=== PATIENT | female | born 1945 | race Caucasian/White ===

== ENCOUNTER 2017-08-10 18:35 | Inpatient (IN) | payer MEDICARE, BC ==
[2017-08-10] VITALS (8 sets, daily range): BP systolic 70–106; BP diastolic 42–54; PULSE 80–108; RESP 18–22; TEMP 97.6–100.8; O2SAT 94–100
[~2017-08-10] VITALS: Ht 167.6 cm; Wt 64.7 kg
[~2017-08-10 18:35] MED LIST: ALEN70 PO; ASPI81 PO; BIOT10004 PO; BUDE.25I IN; CILO100T PO; CITRTAB13 PO; CLON.5 PO; DOCU1CAP39 PO; FORACAP INH; GABA100C4 PO; HYDR12.56 PO; LORT7.5T3 PO; MEVA40TA6 PO; PRIN20TA2 PO; PROT40TA PO; SPIRCAP INH; VENTAER INH; VITA400C28 PO; XOPEAER4 INH
--- NOTE | 2017-08-10 19:14 | PD ---
HPI Chief Complaint: Pain: Acute or Chronic Time Seen by Provider: 18:59 Travel History International Travel<30 days: No Contact w/Intl Traveler<30days: No Traveled to known affect area: No History of Present Illness HPI 72-year-old female with history of fibromyalgia and COPD presents to the emergency department with "pain all over". Patient states that this pain occurred whenever she woke up on Sunday and she eventually saw her primary care physician today and he recommended he come to the emergency department. Patient states that "she feels like she is going to ". States her pain is located in her right hip but denies falls or trauma to the area. States in addition, she feels "dizzy" and described as vertigo and lightheadedness that occurs with standing and decreases with sitting. States that she was sick with a "virus" last week and felt "great" on Sunday but woke up Sunday feeling horrible. Patient states that she has also felt nauseous with 6 episodes of nonbloody vomiting. She denies fever but has had chills. Says that she does have a remote history of an CT and is followed Dr. johnson but does not member when her last stress test was. Overall, patient is a poor historian. PFSH Past Medical History Arthritis: Yes Asthma: No Autoimmune Disease: Yes (LUPUS/ inactive ) Blood Disorders: No Heart Rhythm Problems: No Cancer: No Cardiovascular Problems: Yes (CAD) High Cholesterol: Yes Chest Pain: No Congestive Heart Failure: No COPD: Yes Cerebrovascular Accident: No Coronary Artery Disease: Yes Diabetes: No Diverticulitis: Yes Endocrine: No GERD: Yes Glaucoma: No Genitourinary: No Hepatitis: Yes (HEP. A) Hiatal Hernia: Yes (GERD) Herniated Disk: Yes Hypertension: Yes Immune Disorder: Yes Kidney Stones: No Musculoskeletal: Yes Neurologic: No Psychiatric: No Reproductive: No Respiratory: Yes (EMPHYSEMA/COPD) Renal Failure: No Sickle Cell Disease: No Sleep Apnea: No Thyroid Disease: No Ulcer: No Tetanus Vaccination: Unknown Influenza Vaccination: No ?: Not Menopausal: Yes : 2 Para: 2 Past Surgical History Abdominal Surgery: Yes (COLON RESESCT. (DIVERTIC), HERNIA REP. gallbladder removed) Cardiac Surgery: No Cholecystectomy: Yes Ear Surgery: No Endocrine Surgery: No Eye Surgery: No Genitourinary Surgery: No Gynecologic Surgery: No Oral Surgery: Yes (teeth pulled and top dentures) Pacemaker: No Thoracic Surgery: No Other Surgery: Yes Social History Alcohol Use: No Tobacco Use: No (QUIT 10/2008) Substance Use: No Allergies-Medications (Allergen,Severity, Reaction): Coded Allergies: adhesive (Unverified Allergy, Intermediate, Itching, 02/20/17) cephalexin (Unverified Allergy, Mild, 02/20/17) Reported Meds & Prescriptions Reported Meds & Active Scripts Active Reported Probiotic (Saccharomyces Boulardii) Unknown Strength Cap 1 Cap PO DAILY Vitamin D-1000 (Cholecalciferol) 1,000 Unit Tab 1,000 Units PO BID Calcium 600 (Calcium Carbonate) 600 Mg Calcium (1500 Mg) Tab 600 Mg PO BID Biotin 5,000 Mcg Tab.rapdis 5,000 Mcg PO DAILY Aspirin Adult Low Strength (Aspirin) 81 Mg Tabdr 81 Mg PO DAILY Ventolin Hfa 18 GM Inh (Albuterol Sulfate) 90 Mcg/Act Aer 1 Puff INH Q4H PRN Spiriva Handihaler (Tiotropium Inh) 18 Mcg Cap 18 Mcg INH DAILY 1 capsule = 18 mcg Pantoprazole (Pantoprazole Sodium) 40 Mg Tab 40 Mg PO DAILY Lovastatin 40 Mg Tab 40 Mg PO DAILY Vashon (Hydrocodone-Acetaminophen) 5 Mg-325 Mg Tab 1 Tab PO Q8HR PRN Formoterol Fumarate Dihydrate 100 % Pow 12 Mcg INH Q12H Lexapro (Escitalopram Oxalate) 5 Mg Tab 5 Mg PO DAILY Klonopin (Clonazepam) 0.5 Mg Tab 0.5 Mg PO TID PRN Cilostazol 100 Mg Tab 100 Mg PO BID Tessalon Perles (Benzonatate) 100 Mg Cap 100 Mg PO TID PRN Review of Systems Except as stated in HPI: all other systems reviewed are Neg Physical Exam Narrative GENERAL: WD, WD in NAD upon intial assessment SKIN: Warm and dry. HEAD: Atraumatic. Normocephalic. EYES: Pupils equal and round. No scleral icterus. No injection or drainage. EOMI ENT: No nasal bleeding or discharge. Dry Mucous membranes, pink. no tonsillar hypertrophy or pharyngeal injection NECK: Trachea midline. No JVD. no lymphadenopathy CARDIOVASCULAR: Regular rate and rhythm. RESPIRATORY: No accessory muscle use. Clear to auscultation. Breath sounds equal bilaterally. GASTROINTESTINAL: Abdomen soft, nondistended. MUSCULOSKELETAL: Extremities without clubbing, cyanosis, or edema. No obvious deformities. TTP to right hip although says this is chronic, no deformities or evidence of trauma NEUROLOGICAL: Awake and alert. No obvious cranial nerve deficits. Motor grossly within normal limits. Five out of 5 muscle strength in the arms and legs. Normal speech. PSYCHIATRIC: Appropriate mood and affect; insight and judgment normal. Data Data Last Documented VS Vital Signs Date Time Temp Pulse Resp B/P (MAP) Pulse Ox O2 Delivery O2 Flow Rate FiO2 08/11/17 01:26 86 18 89/45 (60) 96 08/11/17 00:15 Room Air 08/10/17 22:00 100.8 08/10/17 20:46 2.00 Orders Orders Complete Blood Count With Diff (08/10/17 19:09) Comprehensive Metabolic Panel (08/10/17 19:09) Act Partial Throm Time (Ptt) (08/10/17 19:09) Prothrombin Time / Inr (Pt) (08/10/17 19:09) Magnesium (Mg) (08/10/17 19:09) Troponin I (08/10/17 19:09) Urinalysis - C+S If Indicated (08/10/17 19:09) Influenzae A/B Antigen (08/10/17 19:09) Blood Culture (08/10/17 19:09) Iv Access Insert/Monitor (08/10/17 19:09) Oximetry (08/10/17 19:09) Oxygen Administration (08/10/17 19:09) Chest, Single Ap (08/10/17 19:09) Albuterol-Ipratropium Neb (Duoneb Neb) (08/10/17 19:15) Sodium Chlorid 0.9% 500 Ml Inj (Ns 500 M (08/10/17 19:30) B-Type Natriuretic Peptide (08/10/17 19:17) Lactic Acid (08/10/17 19:41) Sodium Chlorid 0.9% 500 Ml Inj (Ns 500 M (08/10/17 21:15) Electrocardiogram (08/10/17 18:52) Acetaminophen (Tylenol) (08/10/17 21:30) Orthostatic Vital Signs (08/10/17 22:05) Sodium Chlorid 0.9% 500 Ml Inj (Ns 500 M (08/10/17 22:45) Sodium Chlor 0.9% 1000 Ml Inj (Ns 1000 M (08/10/17 23:00) Clonazepam (Klonopin) (08/10/17 23:30) Ketorolac Inj (Toradol Inj) (08/11/17 01:00) Sodium Chlor 0.9% 1000 Ml Inj (Ns 1000 M (08/11/17 01:00) Lactic Acid (08/11/17 01:41) Troponin I (08/11/17 01:42) Lipase (08/11/17 01:42) Admit Order (Ed Use Only) (08/11/17 02:28) Labs Laboratory Tests Test 08/10/17 19:17 08/10/17 19:54 08/10/17 20:31 08/11/17 02:01 White Blood Count 14.6 TH/MM3 Red Blood Count 4.65 MIL/MM3 Hemoglobin 13.7 GM/DL Hematocrit 41.0 % Mean Corpuscular Volume 88.3 FL Mean Corpuscular Hemoglobin 29.5 PG Mean Corpuscular Hemoglobin Concent 33.4 % Red Cell Distribution Width 14.0 % Platelet Count 381 TH/MM3 Mean Platelet Volume 8.1 FL Neutrophils (%) (Auto) 47.4 % Lymphocytes (%) (Auto) 35.5 % Monocytes (%) (Auto) 11.9 % Eosinophils (%) (Auto) 4.4 % Basophils (%) (Auto) 0.8 % Neutrophils # (Auto) 6.9 TH/MM3 Lymphocytes # (Auto) 5.2 TH/MM3 Monocytes # (Auto) 1.7 TH/MM3 Eosinophils # (Auto) 0.6 TH/MM3 Basophils # (Auto) 0.1 TH/MM3 CBC Comment AUTO DIFF Differential Total Cells Counted 100 Neutrophils % (Manual) 48 % Band Neutrophils % 1 % Lymphocytes % 34 % Monocytes % 11 % Eosinophils % 5 % Basophils % 1 % Neutrophils # (Manual) 7.2 TH/MM3 Differential Comment FINAL DIFF MANUAL Platelet Estimate NORMAL Platelet Morphology Comment NORMAL Red Cell Morphology Comment NORMAL Prothrombin Time 11.7 SEC Prothromb Time International Ratio 1.2 RATIO Activated Partial Thromboplast Time 28.9 SEC Blood Urea Nitrogen 22 MG/DL Creatinine 1.64 MG/DL Random Glucose 89 MG/DL Total Protein 7.9 GM/DL Albumin 3.7 GM/DL Calcium Level 9.8 MG/DL Magnesium Level 2.2 MG/DL Alkaline Phosphatase 128 U/L Aspartate Amino Transf (AST/SGOT) 56 U/L Alanine Aminotransferase (ALT/SGPT) 55 U/L Total Bilirubin 0.8 MG/DL Sodium Level 131 MEQ/L Potassium Level 4.0 MEQ/L Chloride Level 95 MEQ/L Carbon Dioxide Level 26.8 MEQ/L Anion Gap 9 MEQ/L Estimat Glomerular Filtration Rate 31 ML/MIN Troponin I LESS THAN 0.02 NG/ML 0.02 NG/ML B-Type Natriuretic Peptide 18 PG/ML Lactic Acid Level 2.6 mmol/L 1.3 mmol/L Urine Color YELLOW Urine Turbidity HAZY Urine pH 5.5 Urine Specific [place] 1.015 Urine Protein 30 mg/dL Urine Glucose (UA) NEG mg/dL Urine Ketones NEG mg/dL Urine Occult Blood NEG Urine Nitrite NEG Urine Bilirubin SMALL Urine Urobilinogen 2.0 MG/DL Urine Leukocyte Esterase NEG Urine RBC 2 /hpf Urine WBC 3 /hpf Urine Squamous Epithelial Cells 3 /hpf Urine Hyaline Casts 176 /lpf Urine Mucus MOD /lpf Microscopic Urinalysis Comment CATH-CULT NOT IND Lipase 63 U/L MDM Medical Decision Making Medical Screen Exam Complete: Yes Emergency Medical Condition: Yes Differential Diagnosis Sepsis, COPD exacerbation, fibromyalgia, malingering, influenza, viral syndrome Narrative Course 72-year-old female with history of fibromyalgia, RLS, and COPD presents to the emergency department with "pain all over". Patient states that this pain occurred whenever she woke up on Sunday and she eventually saw her primary care physician today and he recommended he come to the emergency department. Patient states that "she feels like she is going to ". States her pain is located in her right hip but denies falls or trauma to the area. States in addition, she feels "dizzy" and described as vertigo and lightheadedness that occurs with standing and decreases with sitting. States that she was sick with a "virus" last week and felt "great" on Sunday but woke up Sunday feeling horrible. Patient states that she has also felt nauseous with 6 episodes of nonbloody vomiting. She denies fever but has had chills. 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 Overall, patient is a poor historian. Surgical hx: h/o diverticulitis in 2004 which resulted in a colon resection. H/ o SBO in 2014. Initial vital signs hypotensive, HR 90s, temp 100.8 axillary Influenza negative. CXR report demonstrates left basilar scarring and/or atelectasis. Upon personal review of the chest x-ray there is concern for a left pleural effusion. Tylenol 325 ordered. Patient initially refused this medication and states that she would take this at home. NS IVF bolus 1L administered. Orthostatics positive. 80/44 sitting, 74/44 standing after 1L IVF bolus. states she has RLS and takes clonazepam daily for this. Administered 0.5mg clonazepam as a part of her usual evening medication as she feels slightly anxious and her restless leg syndrome symptoms. Labs reveal leukocytosis, elevated lactic acid, JACKY. Pt presents with symptoms of dehydration which may explain some of the lab values seen today. Recommend at least observation. Pt and are initially resistant to this idea. After further discussion, they did agree. Spoke with Dr. Hooker who is concerned about her blood pressure. She requests we discussed the case with Dr. Rosa. Please Dr. Sparks's note for dispo. Diagnosis Primary Impression: Leukocytosis Qualified Codes: D72.829 - Elevated white blood cell count, unspecified Additional Impressions: Hypotension Qualified Codes: I95.1 - Orthostatic hypotension Fever Condition: Stable Tabatha Suarez Aug 10, 2017 19:14
[2017-08-10] MEDS: RESP: ALBUTEROL 2.5 MG/IPRATROPIUM 0.5 MG NEB (SCH) INH ×2 (19:20→19:22)
[2017-08-10] MEDS ORDERED: SODIUM CHLORID 0.9% 500 ML INJ 500 ML IV ONE ×3 (19:30→22:45)
--- NOTE | 2017-08-10 19:34 | RADRPT ---
EXAM DATE/TIME: 08/10/2017 19:13 [facility] COMPARISON: CHEST SINGLE AP, August 03, 2014, 0:41. INDICATIONS : Chest and abdominal pain. MEDICAL HISTORY : Chronic obstructive pulmonary disease. SURGICAL HISTORY : None. ENCOUNTER: Initial ACUITY: 3 days PAIN SCORE: 10/10 LOCATION: Bilateral chest FINDINGS: Left basilar scarring and/or atelectasis is noted. The heart is stable. The pulmonary vascular patter n is normal. The right lung is clear. CONCLUSION: Left basilar scarring and/or atelectasis. No acute infiltrate or pulmonary vascular congestion Sunny Cummins MD on August 10, 2017 at 19:30 Board Certified Radiologist. This report was verified electronically.
[2017-08-10] MEDS ORDERED: CLON.5 PO (19:46)
[2017-08-10] MEDS ORDERED: VITA1000 PO (19:46)
[2017-08-10] MEDS ORDERED: LOVA40TA PO (19:46)
[2017-08-10] MEDS ORDERED: MOBI7.5T PO (19:46)
[2017-08-10] MEDS ORDERED: SPIRCAP INH (19:46)
[2017-08-10] MEDS ORDERED: PRED10 PO (19:46)
[2017-08-10] MEDS ORDERED: LEXA5TAB PO (19:46)
[2017-08-10] MEDS ORDERED: OSEL75 PO (19:46)
[2017-08-10] MEDS ORDERED: CALCTAB94 PO (19:46)
[2017-08-10] MEDS ORDERED: LISI-515 PO (19:46)
[2017-08-10] MEDS ORDERED: BENZ100 PO (19:46)
[2017-08-10] MEDS ORDERED: VENTAER INH (19:46)
[2017-08-10] MEDS ORDERED: FORM1POW2 INH (19:46)
[2017-08-10] MEDS ORDERED: NORC5TAB PO (19:46)
[2017-08-10] MEDS ORDERED: SACC1CAP3 PO (19:46)
[2017-08-10] MEDS ORDERED: ASPI81TA16 PO (19:46)
[2017-08-10] MEDS ORDERED: PANT40TA3 PO (19:46)
[2017-08-10] MEDS ORDERED: BIOT50006 PO (19:46)
[2017-08-10] MEDS ORDERED: CILO100T PO (19:46)
[2017-08-10 19:59] LABS: AUTOMATED NEUTROPHIL # 6.9 TH/MM3 (1.8-7.7); BASOPHIL # 0.1 TH/MM3 (0-0.2); BASOPHIL % 0.8 % (0.0-2.0); EOSINOPHIL # 0.6 TH/MM3 (0-0.4); EOSINOPHIL % 4.4 % (0.0-4.0); HEMOGLOBIN 13.7 GM/DL (11.6-15.3); LYMPH % 35.5 % (9.0-44.0); LYMPHOCYTE # 5.2 TH/MM3 (1.0-4.8); MEAN CELL VOLUME 88.3 FL (80.0-100.0); MEAN CORPUSCULAR HEMOGLOBIN 29.5 PG (27.0-34.0); MEAN CORPUSCULAR HGB CONC 33.4 % (32.0-36.0); MEAN PLATELET VOLUME 8.1 FL (7.0-11.0); MONO % 11.9 % (0.0-8.0); MONOCYTE # 1.7 TH/MM3 (0-0.9); NEUT % 47.4 % (16.0-70.0); PLATELET COUNT 381 TH/MM3 (150-450); RED BLOOD COUNT 4.65 MIL/MM3 (4.00-5.30); WHITE BLOOD COUNT 14.6 TH/MM3 (4.0-11.0)
[2017-08-10 20:09] LABS: ALBUMIN 3.7 GM/DL (3.4-5.0); AST (GOT) 56 U/L (15-37); BICARBONATE 26.8 MEQ/L (21.0-32.0); BLOOD UREA NITROGEN 22 MG/DL (7-18); CALCIUM 9.8 MG/DL (8.5-10.1); CHLORIDE 95 MEQ/L (98-107); CREATININE 1.64 MG/DL (0.50-1.00); GLOMERULAR FILTRATION RATE 31 ML/MIN (>89); GLUCOSE,RANDOM 89 MG/DL (74-106); MAGNESIUM 2.2 MG/DL (1.5-2.5); SODIUM (NA) 131 MEQ/L (136-145)
[2017-08-10 20:13] LABS: ALKALINE PHOSPHATASE 128 U/L (45-117); ALT (GPT) 55 U/L (10-53); INTERNATIONAL NORMALIZED RATIO 1.2 RATIO; PROTHROMBIN TIME - PATIENT 11.7 SEC (9.8-11.6); TOTAL BILIRUBIN ADULT 0.8 MG/DL (0.2-1.0); TOTAL PROTEIN 7.9 GM/DL (6.4-8.2); TROPONIN I LESS THAN 0.02 NG/ML (0.02-0.05)
[2017-08-10 20:50] LABS: BANDS 1 % (0-6); BASOPHILS 1 % (0-2); LYMPHOCYTES 34 % (9-44); MONOCYTES 11 % (0-8); NEUTROPHIL # MANUAL DIFF 7.2 TH/MM3 (1.8-7.7); POLYS (SEG NEUTROPHILS) 48 % (16-70)
[2017-08-10 21:08] LABS: BILIRUBIN, URINE SMALL (NEG); BLOOD, URINE NEG (NEG); GLUCOSE,URINE NEG (NEG); HYALINE CAST, URINE 176 /lpf (RARE); KETONE, URINE NEG (NEG); MUCUS URINE MOD /lpf (OCC); NITRITE,URINE NEG (NEG); PH, URINE 5.5 (5.0-8.5); SQUAMOUS EPITHELIAL CELL URINE 3 /hpf (0-5); URINE COLOR YELLOW (YELLW/STRAW); URINE LEUKOCYTE ESTERASE NEG (NEG)
[2017-08-10] MEDS ORDERED: ACETAMINOPHEN 325 MG TAB PO ONE (21:30)
[2017-08-10] MEDS ORDERED: SODIUM CHLOR 0.9% 1000 ML INJ 1,000 ML IV ONE (23:00)
[2017-08-10] MEDS ORDERED: clonazePAM 0.5 MG TAB PO ONE (23:30)
[2017-08-11] VITALS (15 sets, daily range): BP systolic 89–153; BP diastolic 42–75; PULSE 72–89; RESP 16–31; TEMP 98.2–98.7; O2SAT 75–100
[2017-08-11] MEDS ORDERED: KETOROLAC TROMETHAMINE 30 MG/ML (IVP) VIAL IV PUSH ONE (01:00)
[2017-08-11] MEDS ORDERED: SODIUM CHLOR 0.9% 1000 ML INJ 1,000 ML IV SCH (01:00)
[2017-08-11 02:38] LABS: TROPONIN I 0.02 NG/ML (0.02-0.05)
[2017-08-11] MEDS ORDERED: clonazePAM 0.5 MG TAB PO PRN (06:15)
[2017-08-11] MEDS ORDERED: CHLORHEXIDINE GLUCONATE 2 % 1 PACK (2 CLOTHS)(extra cloths) TOPICAL PRN ×2 (06:30→08:45)
[2017-08-11] MEDS ORDERED: RESP: ALBUTEROL 2.5 MG/3 ML NEB (PRN) INH (08:15)
[2017-08-11] MEDS ORDERED: BISACODYL 10 MG SUPP RECTAL PRN (08:15)
[2017-08-11] MEDS ORDERED: ONDANSETRON HCL 4 MG/2 ML VIAL IV PUSH PRN (08:15)
[2017-08-11] MEDS ORDERED: LACTULOSE SYRUP 20 GM/30 ML CUP PO PRN (08:15)
[2017-08-11] MEDS ORDERED: CHLORHEXIDINE GLUCONATE 2 % 1 PACK (2 CLOTHS) TOP PRN (08:15)
[2017-08-11] MEDS ORDERED: MISCELLANEOUS NURSING INFORMATION XX SCH (08:15)
[2017-08-11] MEDS ORDERED: SENNOSIDES 8.6 MG TAB PO PRN (08:15)
[2017-08-11] MEDS ORDERED: MAGNESIUM HYDROXIDE SUSP 30 ML CUP PO PRN (08:15)
[2017-08-11] MEDS ORDERED: SODIUM CHLORIDE 0.9% FLUSH 10 ML FLUSH IV FLUSH PRN (08:15)
[2017-08-11] MEDS: DOCUSATE SODIUM 50 MG/SENNA 8.6 MG TAB PO SCH ×2 (08:55→20:14)
[2017-08-11] MEDS: CHOLECALCIFEROL (VIT D3) 1000 UNIT TAB PO SCH ×2 (08:55→20:13)
[2017-08-11] MEDS: HEPARIN SODIUM - SQ 10,000 UNITS/ML VIAL SQ SCH ×2 (08:55→20:14)
[2017-08-11] MEDS: LACTOBACILLUS ACIDOPHILUS TAB PO SCH (08:55)
[2017-08-11] MEDS: PANTOPRAZOLE SODIUM 40 MG VIAL IV PUSH SCH (08:55)
[2017-08-11] MEDS: ASPIRIN EC 81 MG TABEC PO SCH ×2 (08:55→09:16)
[2017-08-11] MEDS: ESCITALOPRAM OXALATE 10 MG TAB PO SCH (08:56)
[2017-08-11] MEDS: SODIUM CHLORIDE 0.9% FLUSH 10 ML FLUSH IV FLUSH SCH ×2 (08:56→20:15)
[2017-08-11] MEDS: CALCIUM CARBONATE 1.25 GM (CA 500 MG) TAB PO SCH ×2 (08:56→20:13)
--- NOTE | 2017-08-11 09:10 | HHI.HP ---
HPI Service Critical Care Medicine Primary Care Physician Venice Mixon MD Admission Diagnosis hypotension resus resistant Diagnosis: Travel History International Travel<30 Days: No Contact w/Intl Traveler <30 Da: No Traveled to Known Affected Are: No History of Present Illness 72-year-old female with past medical history of COPD, coronary artery disease, GERD, hypertension, hyperlipidemia presents to [facility] emergency department with 6 day history of nausea, vomiting, decreased appetite and myalgia. She states that she saw her primary physician a couple of weeks ago and was having cough and COPD exacerbation so was started on ciprofloxacin and prednisone. She states she took these about a week and then followed up with Dr. Khan and was started on Tamiflu for presumed influenza (she states was not tested for influenza). She states she took a couple of doses of tamiflu and then did not take the rest because since 08/06/17 she has been nauseated. She states she had several episodes of nonbloody emesis. Subsequently she has had poor appetite has been having dry heaves, but states " I am like this often because of my GERD anyway". She denies abdominal pain. States she had a normal BM yesterday. Denies sore throat, headache, hemoptysis , chest pain, flank pain, dysuria, rash, fever (temp 100.8 in ED). She does have rhinorrhea and is repeatedly sniffing in the ED. She was treated for hypotension in the ED with BP 70/42 MAP 51. Heart rate was 97-108. Lactic acid was 2.6. She was given 1 L NS bolus and tachycardia resolved. She had orthostatic vital signs so she was given additional 1.5 L NS bolus. She was noted to have ill-fitting BP cuff so this was changed and she subsequently has been consistently normotensive with SBP 101/59 - SBP 113. She has voided and lactic acid normalize to 1.3. CXR is clear, u/a normal, WBC 14.6 with monocyte predominance. She is not chronically on prednisone, states last prednisone dose was 1 week ago and she had only been taking prednisone about a week. Influenza in the ED pending. Blood cultures pending. Review of Systems Constitutional: COMPLAINS OF: Dizziness Eyes: DENIES: Vision loss Gastrointestinal: COMPLAINS OF: Nausea, Vomiting, Anorexia Genitourinary: DENIES: Urinary frequency, Urgency Integumentary: DENIES: Rash Hematologic/lymphatic: DENIES: Lymphadenopathy Immunologic/allergic: DENIES: Urticaria Neurologic: DENIES: Headache Past Family Social History Allergies: Coded Allergies: adhesive (Unverified Allergy, Intermediate, Itching, 02/20/17) cephalexin (Unverified Allergy, Mild, 02/20/17) Past Medical History COPD, followed by Dr. Khan Fibromyalgia "Inactive systemic lupus erythematosus" . She has seen Dr. Vargas with rheumatology in the past coronary artery disease with no prior stents. Previously underwent catheter by Dr. Perez in 1994. Now followed by Dr. Ortega. 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 svitlana de guzman) cardiac catheterization in 1994. No stents Reported Medications Tamiflu 75 mill grams by mouth twice a day Spiriva 18 g inhaled daily Albuterol 1 puff inhaled every 4 hours Formoterol 12 g inhaled every 12 hours Cilostazol 100 g by mouth twice a day Lovastatin 40 mill grams by mouth daily Lisinopril 20 mill grams by mouth daily Aspirin 81 mg by mouth daily Mobic 7.5 mill grams by mouth daily Lenore 5 mg by mouth every 8 hours as needed for pain Klonopin 0.5 mill grams by mouth 3 times a day as needed for anxiety Lexapro 5 mill grams by mouth daily Calcium carbonate 600 mg by mouth twice a day Tessalon Perles 100 mg by mouth 3 times a day as needed for cough Protonix 40 mill grams by mouth daily Saccharomyces probiotic 1 By mouth daily Prednisone 10 mg by mouth daily(Hasn't taken in a week) Biotin 5000 g by mouth daily Vitamin D 1000 units by mouth twice a day Family History Mother had colon cancer and of complications of surgery at 72 Father had a stroke and two and a half years later at age 78 Social History Smoked 2 packs of cigarettes per day for over 45 years. Quit smoking in 2008 and lives at home with her . No alcohol or illicit drug use Physical Exam Vital Signs Vital Signs Date Time Temp Pulse Resp B/P (MAP) Pulse Ox O2 Delivery O2 Flow Rate FiO2 08/11/17 07:18 75 08/11/17 05:55 75 18 118/54 (75) 100 Room Air 08/11/17 03:11 82 99/51 (67) 101/49 (66) 08/11/17 03:03 83 18 89/42 (58) 100 Room Air 08/11/17 01:26 86 18 89/45 (60) 96 08/11/17 00:15 86 18 89/46 (60) 100 Room Air 08/10/17 23:35 89 18 97/51 (66) 100 08/10/17 23:12 80 18 99/49 (66) 100 08/10/17 22:32 104 18 80/44 (56) 106 18 74/44 (54) 08/10/17 22:00 100.8 103 18 94/53 (67) 96 Room Air 84/43 (57) 08/10/17 20:47 108 106/54 (71) 08/10/17 20:46 Nasal Cannula 2.00 08/10/17 19:24 100 Nasal Cannula 2.00 08/10/17 18:56 08/10/17 18:56 102 19 92/49 (63) 100 Room Air 08/10/17 18:36 97.6 97 22 70/42 (51) 94 Room Air Physical Exam GENERAL: Elderly female who is alert and interactive laying in ED bed. She has obvious rhinorrhea SKIN: Warm and dry, no rash HEAD: Atraumatic. Normocephalic. EYES: Pupils equal and round, 2 mm reactive bilaterally. No scleral icterus. Very mild conjunctival injection bilaterally ENT: Mucous membranes pink and moist. No pharyngeal erythema. NECK: Trachea midline. No JVD. No meningismus CARDIOVASCULAR: Regular rate and rhythm. No murmurs rubs or gallops. RESPIRATORY: She is breathing very comfortably without accessory muscle use. There are no wheezes Rales or rhonchi. GASTROINTESTINAL: Abdomen soft, nondistended. Completely nontender. No rebound or guarding. No HSM or masses. No costovertebral angle tenderness. MUSCULOSKELETAL: Extremities without clubbing, cyanosis, or edema. No obvious deformities. NEUROLOGICAL: Awake and alert. No obvious cranial nerve deficits. No nystagmus Motor grossly within normal limits. Normal speech. Laboratory Laboratory Tests Test 08/10/17 19:17 08/10/17 19:54 08/10/17 20:31 08/11/17 02:01 White Blood Count 14.6 Red Blood Count 4.65 Hemoglobin 13.7 Hematocrit 41.0 Mean Corpuscular Volume 88.3 Mean Corpuscular Hemoglobin 29.5 Mean Corpuscular Hemoglobin Concent 33.4 Red Cell Distribution Width 14.0 Platelet Count 381 Mean Platelet Volume 8.1 Neutrophils (%) (Auto) 47.4 Lymphocytes (%) (Auto) 35.5 Monocytes (%) (Auto) 11.9 Eosinophils (%) (Auto) 4.4 Basophils (%) (Auto) 0.8 Neutrophils # (Auto) 6.9 Lymphocytes # (Auto) 5.2 Monocytes # (Auto) 1.7 Eosinophils # (Auto) 0.6 Basophils # (Auto) 0.1 CBC Comment AUTO DIFF Differential Total Cells Counted 100 Neutrophils % (Manual) 48 Band Neutrophils % 1 Lymphocytes % 34 Monocytes % 11 Eosinophils % 5 Basophils % 1 Neutrophils # (Manual) 7.2 Differential Comment FINAL DIFF MANUAL Platelet Estimate NORMAL Platelet Morphology Comment NORMAL Red Cell Morphology Comment NORMAL Prothrombin Time 11.7 Prothromb Time International Ratio 1.2 Activated Partial Thromboplast Time 28.9 Blood Urea Nitrogen 22 Creatinine 1.64 Random Glucose 89 Total Protein 7.9 Albumin 3.7 Calcium Level 9.8 Magnesium Level 2.2 Alkaline Phosphatase 128 Aspartate Amino Transf (AST/SGOT) 56 Alanine Aminotransferase (ALT/SGPT) 55 Total Bilirubin 0.8 Sodium Level 131 Potassium Level 4.0 Chloride Level 95 Carbon Dioxide Level 26.8 Anion Gap 9 Estimat Glomerular Filtration Rate 31 Troponin I LESS THAN 0.02 0.02 B-Type Natriuretic Peptide 18 Lactic Acid Level 2.6 1.3 Urine Color YELLOW Urine Turbidity HAZY Urine pH 5.5 Urine Specific Virgil 1.015 Urine Protein 30 Urine Glucose (UA) NEG Urine Ketones NEG Urine Occult Blood NEG Urine Nitrite NEG Urine Bilirubin SMALL Urine Urobilinogen 2.0 Urine Leukocyte Esterase NEG Urine RBC 2 Urine WBC 3 Urine Squamous Epithelial Cells 3 Urine Hyaline Casts 176 Urine Mucus MOD Microscopic Urinalysis Comment CATH-CULT NOT IND Lipase 63 Test 08/11/17 06:10 Date/Time Source Procedure Growth Status 08/10/17 19:10 Blood Peripheral Aerobic Blood Culture Pending Received 08/10/17 19:10 Blood Peripheral Anaerobic Blood Culture Pending Received 08/10/17 19:17 Nasal Aspirate Influenza Types A,B Antigen (JUAN) - Final NEGATIVE FOR FLU A AND B ANTIGEN.... Complete Result Diagram: 2/2/18 1917 2/2/18 1917 Septic Shock Reassessment Septic shock perfusion: reassessment completed Caprini VTE Risk Assessment Caprini VTE Risk Assessment: Mod/High Risk (score >= 2) Caprini Risk Assessment Model Point Value = 1 Point Value = 2 Point Value = 3 Point Value = 5 Age 41-60 Minor surgery BMI > 25 kg/m2 Swollen legs Varicose veins or History of unexplained or recurrent spontaneous Oral contraceptives or hormone replacement Sepsis (< 1 month) Serious lung disease, including pneumonia (< 1 month) Abnormal pulmonary function Acute myocardial infarction Congestive heart failure (< 1 month) History of inflammatory bowel disease Medical patient at bed rest Age 61-74 Arthroscopic surgery Major open surgery (> 45 min) Laparoscopic surgery (> 45 min) Malignancy Confined to bed (> 72 hours) Immobilizing plaster cast Central venous access Age >= 75 History of VTE Family history of VTE Factor V Leiden Prothrombin [id number] Lupus anticoagulant Anticardiolipin antibodies Elevated serum homocysteine Heparin-induced thrombocytopenia Other congenital or acquired thrombophilia Stroke (< 1 month) Elective arthroplasty Hip, pelvis, or leg fracture Acute spinal cord injury (< 1 month) Prophylaxis Regimen Total Risk Factor Score Risk Level Prophylaxis Regimen 0-1 Low Early ambulation 2 Moderate Order ONE of the following: *Sequential Compression Device (SCD) *Heparin 5000 units SQ BID 3-4 Higher Order ONE of the following medications: *Heparin 5000 units SQ TID *Enoxaparin/Lovenox 40 mg SQ daily (WT < 150 kg, CrCl > 30 mL/min) *Enoxaparin/Lovenox 30 mg SQ daily (WT < 150 kg, CrCl > 10-29 mL/min) *Enoxaparin/Lovenox 30 mg SQ BID (WT < 150 kg, CrCl > 30 mL/min) AND/OR *Sequential Compression Device (SCD) 5 or more Highest Order ONE of the following medications: *Heparin 5000 units SQ TID (Preferred with Epidurals) *Enoxaparin/Lovenox 40 mg SQ daily (WT < 150 kg, CrCl > 30 mL/min) *Enoxaparin/Lovenox 30 mg SQ daily (WT < 150 kg, CrCl > 10-29 mL/min) *Enoxaparin/Lovenox 30 mg SQ BID (WT < 150 kg, CrCl > 30 mL/min) AND *Sequential Compression Device (SCD) Assessment and Plan Assessment and Plan NEURO: Depression Anxiety Klonopin 0.5 mill grams by mouth 3 times a day hold for hypotension Lexapro 5 mg by mouth daily RESP: COPD Prior history of tobacco abuse URI DuoNeb every 6 hours. Albuterol every 2 hours as needed. Chest x-ray / - no infiltrate. CV: Hypotension, appears secondary to volume depletion, resolved Patient has had poor by mouth intake 1 week and has had volume loss from vomiting. Has received 2.5 L normal saline bolus in the emergency department. Continue 0.9 NaCl at 84 mill liters per hour. Lactic acidosis resolved Serial troponins negative. GI: Elevated LFTs Prior history of cholecystectomy Prior ventral hernia repair Zofran as needed for nausea. Abdomen is completely benign. LFTs are mildly elevated which may be secondary to viral process. We'll follow up right upper quadrant ultrasound. Follow-up viral hepatitis panel. Clear liquid diet FEN/RENAL: Hyponatremic dehydration Acute kidney injury overlying CKD stage II Patient is voiding. Monitor intake and output. Monitor electrolytes and replace as indicated. Follow-up CMP ID: Symptoms appear consistent upper respiratory infection, likely viral. She has rhinorrhea, myalgias. Influenza negative and given duration of her symptoms, doubt Tamiflu would be of benefit at this point ( states she took a couple of doses almost a week ago). She has leukocytosis with monocyte predominance. No compelling evidence for bacterial infection with negative UA, benign abdomen, negative chest x-ray, no diarrhea. Will f/u CXR to evaluate for development of infiltrate following hydration. At this point, monitoring off antibiotics. HEME Eosinophilia Monitor CBC ENDO: Euglycemic PROPH: SCDs/Heparin 5000 units subcutaneous every 12 hours for DVT prophylaxis. ACCESS: Peripheral IV providing adequate access at this time Patients BP is stable. Will transfer to floor. Will initiate clear liquid diet and assess tolerance. Consult hospitalist to assume care Level 2 H and P Ayesha Rosa MD Aug 11, 2017 09:10
--- NOTE | 2017-08-11 09:25 | RADRPT ---
EXAM DATE/TIME: 08/11/2017 09:00 [facility] COMPARISON: CHEST SINGLE AP, August 10, 2017, 19:13. INDICATIONS : Shortness of breath MEDICAL HISTORY : Chronic obstructive pulmonary disease. SURGICAL HISTORY : None. ENCOUNTER: Subsequent ACUITY: 4 - 6 days PAIN SCORE: 0/10 LOCATION: Bilateral chest FINDINGS: A single view of the chest demonstrates minimal left basilar density without evidence of mass, infilt rate or effusion. Heart normal in size. The cardiomediastinal contours are unremarkable. Osseous st ructures are intact. CONCLUSION: 1. Stable left basilar density likely scarring. Alfredito Carbajal MD on August 11, 2017 at 9:20 Board Certified Radiologist. This report was verified electronically.
[2017-08-11 09:36] LABS: TROPONIN I 0.02 NG/ML (0.02-0.05)
--- NOTE | 2017-08-11 09:38 | RADRPT ---
EXAM DATE/TIME: 08/11/2017 08:28 [facility] COMPARISON: No previous studies available for comparison. INDICATIONS : Nausea/vomiting. MEDICAL HISTORY : Hypercholesterolemia. Emphysema. Diverticulitis. Coronary artery disease. HTN. COPD. Dyspnea. GERD. H iatal hernia. Arthritis. Herniated disc. LUPUS. Hep A. SURGICAL HISTORY : Cholecystectomy. Colon resection. Teeth pulled. Hernia repair. ENCOUNTER: Initial ACUITY: 2 days PAIN SCORE: 0/10 LOCATION: Bilateral upper quadrant MEASUREMENTS: LIVER: 14.6 cm length COMMON DUCT: 8 mm RIGHT KIDNEY: 103 x 4.3 x 3.8 cm SPLEEN: 7.6 cm length FINDINGS: LIVER: Normal echotexture without focal lesion or ductal dilatation. Hepatopedal flow. COMMON DUCT: No intraluminal mass or stone visualized. GALLBLADDER: Surgically absent. PANCREAS: The visualized portions are within normal limits. RIGHT KIDNEY: No hydronephrosis, stone or mass. SPLEEN: No focal lesion. CONCLUSION: 1. Status post cholecystectomy. 2. No acute abnormalities. Alfredito Carbajal MD on August 11, 2017 at 9:34 Board Certified Radiologist. This report was verified electronically.
[2017-08-11] MEDS: RESP: ALBUTEROL 2.5 MG/IPRATROPIUM 0.5 MG NEB (SCH) INH ×2 (09:54→15:01)
[2017-08-11 11:31] LABS: ALBUMIN 3.2 GM/DL (3.4-5.0); ALKALINE PHOSPHATASE 102 U/L (45-117); ALT (GPT) 40 U/L (10-53); AST (GOT) 54 U/L (15-37); BLOOD UREA NITROGEN 21 MG/DL (7-18); CALCIUM 8.3 MG/DL (8.5-10.1); CHLORIDE 104 MEQ/L (98-107); CREATININE 1.37 MG/DL (0.50-1.00); GLOMERULAR FILTRATION RATE 38 ML/MIN (>89); GLUCOSE,RANDOM 80 MG/DL (74-106); SODIUM (NA) 136 MEQ/L (136-145); TOTAL BILIRUBIN ADULT 0.8 MG/DL (0.2-1.0); TOTAL PROTEIN 6.8 GM/DL (6.4-8.2)
[2017-08-11] MEDS: ACETAMINOPHEN 325 MG TAB PO PRN (13:13)
--- NOTE | 2017-08-11 13:14 | EKG ---
Date Performed: 08/10/2017 Time Performed: 18:52:22 PTAGE: 72 years EKG: ECTOPIC ATRIAL RHYTHM LOW QRS VOLTAGE IN EXTREMITY LEADS PATTERN CONSISTENT WITH PULMONARY DISEASE Since previous tracing, no significant change noted ABNORMAL ECG PREVIOUS TRACING : 08/03/2014 01.27 DOCTOR: Aleks Perez Interpretating Date/Time 08/11/2017 13:12:46
[2017-08-11] MEDS ORDERED: traMADol HCL 50 MG TAB PO PRN (13:45)
[2017-08-11] MEDS: SODIUM CHLOR 0.9% 1000 ML INJ 1,000 ML IV SCH ×2 (15:59→20:16)
[2017-08-11 20:45] LABS: HEMATOCRIT 32.9 % (35.0-46.0); HEMOGLOBIN 11.1 GM/DL (11.6-15.3); MEAN CELL VOLUME 88.4 FL (80.0-100.0); MEAN CORPUSCULAR HEMOGLOBIN 29.8 PG (27.0-34.0); MEAN CORPUSCULAR HGB CONC 33.7 % (32.0-36.0); MEAN PLATELET VOLUME 7.2 FL (7.0-11.0); PLATELET COUNT 238 TH/MM3 (150-450); RED BLOOD COUNT 3.73 MIL/MM3 (4.00-5.30); RED CELL DISTRIBUTION WIDTH 13.3 % (11.6-17.2); WHITE BLOOD COUNT 7.4 TH/MM3 (4.0-11.0)
[2017-08-11 21:38] LABS: CREATININE, RANDOM URINE 40.8 MG/DL
[2017-08-12] VITALS: BP 146/63; PULSE 86; RESP 16; TEMP 98.6; O2SAT 98
[2017-08-12] MEDS ORDERED: CHLORHEXIDINE GLUCONATE 2 % 1 PACK (2 CLOTHS) TOP SCH (04:00)
[2017-08-12] MEDS ORDERED: CHLORHEXIDINE GLUCONATE 2 % 1 PACK (2 CLOTHS)(taper/protocol) TOPICAL SCH (04:00)
[2017-08-12] MEDS: RESP: ALBUTEROL 2.5 MG/IPRATROPIUM 0.5 MG NEB (SCH) INH (04:00)
[2017-08-12 08:00] VITALS: BP 137/65; PULSE 89; RESP 20; TEMP 99.4; O2SAT 90
[2017-08-12] MEDS: PANTOPRAZOLE SODIUM 40 MG VIAL IV PUSH SCH (08:00)
[2017-08-12] MEDS: SODIUM CHLOR 0.9% 1000 ML INJ 1,000 ML IV SCH (08:03)
[2017-08-12] MEDS: SODIUM CHLORIDE 0.9% FLUSH 10 ML FLUSH IV FLUSH SCH (09:00)
[2017-08-12] MEDS: DOCUSATE SODIUM 50 MG/SENNA 8.6 MG TAB PO SCH (09:00)
[2017-08-12] MEDS: HEPARIN SODIUM - SQ 10,000 UNITS/ML VIAL SQ SCH (09:24)
[2017-08-12] MEDS: CALCIUM CARBONATE 1.25 GM (CA 500 MG) TAB PO SCH (09:24)
[2017-08-12] MEDS: LACTOBACILLUS ACIDOPHILUS TAB PO SCH (09:24)
[2017-08-12] MEDS: CHOLECALCIFEROL (VIT D3) 1000 UNIT TAB PO SCH (09:24)
[2017-08-12] MEDS: ASPIRIN EC 81 MG TABEC PO SCH (09:24)
[2017-08-12] MEDS: ESCITALOPRAM OXALATE 10 MG TAB PO SCH (09:24)
--- NOTE | 2017-08-12 10:04 | HHI.DCPOC ---
Discharge Care Plan Diagnosis: (1) JACKY (acute kidney injury) (2) Hypotension (3) URI (upper respiratory infection) (4) Anxiety (5) Lactic acidemia Goals to Promote Your Health * To prevent worsening of your condition and complications * To maintain your health at the optimal level Directions to Meet Your Goals HOLD LISINOPRIL until you see your PCP. Take your medications as prescribed Follow your dietary instruction Follow activity as directed Keep your appointments as scheduled Take your immunizations and boosters as scheduled If your symptoms worsen call your PCP, if no PCP go to Urgent Care Center or Emergency Room Smoking is Dangerous to Your Health. Avoid second hand smoke Call the 24-hour hour crisis hotline for domestic abuse at Jamaal Bills MD Aug 12, 2017 10:04
--- NOTE | 2017-08-12 10:05 | HHI.PR ---
Subjective Remarks Patient reports she is feeling much better. She wants to go home. Would like to eat. She denies anymore nausea or vomiting. Objective Vitals Vital Signs Date Time Temp Pulse Resp B/P (MAP) Pulse Ox O2 Delivery O2 Flow Rate FiO2 08/12/17 08:00 99.4 89 20 137/65 (89) 90 08/12/17 00:00 98.6 86 16 146/63 (90) 98 08/11/17 20:00 98.7 89 16 153/75 (101) 97 08/11/17 16:00 98.2 88 17 134/56 (82) 92 08/11/17 14:00 83 31 08/11/17 14:00 81 08/11/17 13:00 82 19 105/69 (81) 98 08/11/17 12:00 98.7 74 18 108/55 (72) 97 08/11/17 12:00 78 20 142/62 (88) 75 08/11/17 12:00 81 08/11/17 11:00 81 25 129/60 (83) 100 I/O 08/11/17 08/11/17 08/11/17 08/12/17 08/12/17 08/12/17 07:00 15:00 23:00 07:00 15:00 23:00 Intake Total 2500 ml 280 ml 1600 ml 480 ml Output Total 525 ml 200 ml 400 ml Balance 2500 ml -245 ml 1400 ml 80 ml Intake Oral 280 ml 600 ml 480 ml IV Total 2500 ml 1000 ml Output Urine Total 525 ml 200 ml 400 ml # Voids 2 # Bowel Movements 3 1 0 Result Diagram: 08/11/17202708/11/17814 Objective Remarks GENERAL: Elderly female, in no apparent distress. CARDIOVASCULAR: Normal rate and regular rhythm without murmurs, gallops, or rubs. RESPIRATORY: Good respiratory efforts. Breath sounds equal and clear to auscultation bilaterally. GASTROINTESTINAL: Abdomen soft, non-tender, non-distended. Normal active bowel sounds MUSCULOSKELETAL: Extremities without cyanosis, or edema. NEURO: Alert & Oriented x4 to person, place, time, situation. Moves all ext x4 PSYCH: Appropriate mood and affect. A/P Assessment and Plan 72 year-old female presented to the emergency room with complaint of nausea, vomiting, generalized body ache. Patient was found to be hypotensive on presentation. Lactic acid elevated. She was admitted and resuscitated with IV fluid. Blood pressure stabilized. The patient quickly improved and was able to tolerate her diet. It appears that URI led to her symptoms and hospitalization due to dehydration. Patient also presented with acute on chronic kidney injury. This improved with IV fluid. Expect continuing improvement. Based on blood pressure trends, she was advised to stop taking lisinopril for now and follow-up with her primary care physician to titrate antihypertensives as needed. Discharge home in good condition Diet: Heart healthy Activity: Regular as tolerated Meds: Per med rec Follow-up with: PCP Jamaal Bills MD Aug 12, 2017 10:05
[2017-08-12] MEDS: ACETAMINOPHEN 325 MG TAB PO PRN (11:40)
[2017-08-12 12:00] VITALS: BP 146/67; PULSE 89; RESP 18; TEMP 98.9; O2SAT 93
[2017-08-13 16:07] LABS: HEPATITIS A AB IGM NEGATIVE (NEGATIVE); HEPATITIS B CORE AB IGM NEGATIVE (NEGATIVE); HEPATITIS B SURFACE ANTIGEN NEGATIVE (NEGATIVE); HEPATITIS C AB IgG NEGATIVE (NEGATIVE)
== END 2017-08-12 15:13 | disposition home or self-care (01) | DRG 683 ==
LOC: NEPC 18:35 → NEDA 08-11 02:30 → HIMW 08-11 06:05 → N07B 08-11 15:45
PROVIDERS: ADMIT Family Medicine; ATTEND Family Medicine
DX: N17.9 Acute kidney failure, unspecified (principal); E87.2 Acidosis; J44.9 Chronic obstructive pulmonary disease, unspecified; D72.1 Eosinophilia; E87.1 Hypo-osmolality and hyponatremia; J06.9 Acute upper respiratory infection, unspecified; E86.0 Dehydration; I95.1 Orthostatic hypotension; M79.7 Fibromyalgia; I25.10 Atherosclerotic heart disease of native coronary artery without angina pectoris; I25.2 Old myocardial infarction; K21.9 Gastro-esophageal reflux disease without esophagitis; N18.2 Chronic kidney disease, stage 2 (mild); I12.9 Hypertensive chronic kidney disease with stage 1 through stage 4 chronic kidney disease, or unspecified chronic kidney disease; G25.81 Restless legs syndrome; E78.5 Hyperlipidemia, unspecified; M51.26 Other intervertebral disc displacement, lumbar region; M19.90 Unspecified osteoarthritis, unspecified site; F32.9 Major depressive disorder, single episode, unspecified; F41.9 Anxiety disorder, unspecified; Z87.891 Personal history of nicotine dependence; Z88.1 Allergy status to other antibiotic agents
CPT/HCPCS: 71045; 76705; 80053; 80074; 81001; 82533; 82550; 82552; 82570; 83605; 83690; 83735; 83880; 84300; 84484; 85007; 85027; 85610; 85730; 87040; 87205; 87641; 87804; 93005; 94640; 94664; 96361; 96374; C9113; J1644; J1885; J7030; J7040

== ENCOUNTER 2017-08-18 15:51 | Inpatient (IN) | payer MEDICARE, BC ==
[~2017-08-18] VITALS: Ht 165.1 cm; Wt 66.0 kg
[~2017-08-18 15:51] MED LIST changes: -ALEN70 PO; -ASPI81 PO; +ASPI81TA16 PO; +BENZ100 PO; -BIOT10004 PO; +BIOT50006 PO; -BUDE.25I IN; +CALCTAB94 PO; -CITRTAB13 PO; -DOCU1CAP39 PO; -FORACAP INH; +FORM1POW2 INH; -GABA100C4 PO; -HYDR12.56 PO; +LEXA5TAB PO; -LORT7.5T3 PO; +LOVA40TA PO; -MEVA40TA6 PO; +NORC5TAB PO; +PANT40TA3 PO; -PRIN20TA2 PO; -PROT40TA PO; +SACC1CAP3 PO; +VITA1000 PO; -VITA400C28 PO; -XOPEAER4 INH
[2017-08-18 16:00] VITALS: BP 149/64; PULSE 83; RESP 15; O2SAT 94
[2017-08-18] MEDS ORDERED: SODIUM CHLOR 0.9% 1000 ML INJ 1,000 ML IV SCH (16:09)
[2017-08-18 16:15] VITALS: O2SAT 98
[2017-08-18] MEDS ORDERED: SODIUM CHLORIDE 0.9% FLUSH 10 ML FLUSH IV FLUSH PRN ×3 (16:15→19:30)
[2017-08-18 16:42] LABS: BACTERIA, URINE OCC /hpf; BILIRUBIN, URINE NEG (NEG); BLOOD, URINE NEG (NEG); GLUCOSE,URINE NEG (NEG); HYALINE CAST, URINE 10 /lpf (RARE); KETONE, URINE 40 mg/dL (NEG); MUCUS URINE FEW /lpf (OCC); NITRITE,URINE NEG (NEG); SQUAMOUS EPITHELIAL CELL URINE <1 /hpf (0-5); URINE COLOR YELLOW (YELLW/STRAW); URINE LEUKOCYTE ESTERASE NEG (NEG)
[2017-08-18 16:46] LABS: AUTOMATED NEUTROPHIL # 3.7 TH/MM3 (1.8-7.7); BASOPHIL # 0.1 TH/MM3 (0-0.2); BASOPHIL % 0.7 % (0.0-2.0); EOSINOPHIL # 0.5 TH/MM3 (0-0.4); HEMATOCRIT 37.5 % (35.0-46.0); HEMOGLOBIN 12.9 GM/DL (11.6-15.3); LYMPH % 34.2 % (9.0-44.0); LYMPHOCYTE # 2.6 TH/MM3 (1.0-4.8); MEAN CELL VOLUME 87.9 FL (80.0-100.0); MEAN CORPUSCULAR HEMOGLOBIN 30.2 PG (27.0-34.0); MEAN CORPUSCULAR HGB CONC 34.4 % (32.0-36.0); MEAN PLATELET VOLUME 7.7 FL (7.0-11.0); MONO % 11.4 % (0.0-8.0); MONOCYTE # 0.9 TH/MM3 (0-0.9); NEUT % 47.7 % (16.0-70.0); PLATELET COUNT 277 TH/MM3 (150-450); RED BLOOD COUNT 4.27 MIL/MM3 (4.00-5.30); RED CELL DISTRIBUTION WIDTH 13.1 % (11.6-17.2); WHITE BLOOD COUNT 7.7 TH/MM3 (4.0-11.0)
[2017-08-18 16:47] LABS: INTERNATIONAL NORMALIZED RATIO 1.2 RATIO; PROTHROMBIN TIME - PATIENT 11.9 SEC (9.8-11.6)
--- NOTE | 2017-08-18 16:47 | PD ---
HPI Chief Complaint: Altered Mental Status Time Seen by Provider: 16:09 Travel History International Travel<30 days: No Contact w/Intl Traveler<30days: No Traveled to known affect area: No History of Present Illness HPI 72-year-old woman, multiple medical problems, presents to the emergency department brought by EMS after her called because she has been weak, not eating, not drinking. She was discharged home from the hospital about 6 days ago after being admitted with pain all over and hypotension. states that she really has not been right since she got home. She has been confused, has difficulty word finding, and has ongoing pain in her left hip. She does have a prescription for hydrocodone but says she is only taking it once or twice since she has been home 6 days ago. No other significant medication changes. No other complaints. History Past Medical History Narrative Medical COPD, followed by Dr. Khan Fibromyalgia "Inactive systemic lupus erythematosus" . She has seen Dr. Vargas with rheumatology in the past coronary artery disease with no prior stents. Previously underwent catheter by Dr. Perez in 1994. Now followed by Dr. Ortega. 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 Lumbar herniated disc Arthritis Cataracts Tobacco abuse Tetanus Vaccination: Unknown Influenza Vaccination: Yes Menopausal: Yes : 2 Para: 2 Social History Alcohol Use: No Tobacco Use: No Allergies-Medications (Allergen,Severity, Reaction): Coded Allergies: adhesive (Unverified Allergy, Intermediate, Itching, 08/18/17) cephalexin (Unverified Allergy, Mild, 08/18/17) Reported Meds & Prescriptions Reported Meds & Active Scripts Active Reported Probiotic (Saccharomyces Boulardii) Unknown Strength Cap 1 Cap PO DAILY Vitamin D-1000 (Cholecalciferol) 1,000 Unit Tab 1,000 Units PO BID Calcium 600 (Calcium Carbonate) 600 Mg Calcium (1500 Mg) Tab 600 Mg PO BID Biotin 5,000 Mcg Tab.rapdis 5,000 Mcg PO DAILY Aspirin Adult Low Strength (Aspirin) 81 Mg Tabdr 81 Mg PO DAILY Ventolin Hfa 18 GM Inh (Albuterol Sulfate) 90 Mcg/Act Aer 1 Puff INH Q4H PRN Spiriva Handihaler (Tiotropium Inh) 18 Mcg Cap 18 Mcg INH DAILY 1 capsule = 18 mcg Pantoprazole (Pantoprazole Sodium) 40 Mg Tab 40 Mg PO DAILY Lovastatin 40 Mg Tab 40 Mg PO DAILY [place] (Hydrocodone-Acetaminophen) 5 Mg-325 Mg Tab 1 Tab PO Q8HR PRN Formoterol Fumarate Dihydrate 100 % Pow 12 Mcg INH Q12H Lexapro (Escitalopram Oxalate) 5 Mg Tab 5 Mg PO DAILY Klonopin (Clonazepam) 0.5 Mg Tab 0.5 Mg PO TID PRN Cilostazol 100 Mg Tab 100 Mg PO BID Tessalon Perles (Benzonatate) 100 Mg Cap 100 Mg PO TID PRN Review of Systems ROS Limitations: Clinical Condition Physical Exam Exam Limitations: Clinical Condition Narrative GENERAL:Elderly 72-year-old woman, nontoxic, sluggishly responsive, no acute distress. SKIN: Focused skin assessment warm/dry. HEAD: Atraumatic. Normocephalic. EYES: Pupils equal and round. No scleral icterus. No injection or drainage. ENT: No nasal bleeding or discharge. Mucous membranes pink and moist. NECK: Trachea midline. No JVD. CARDIOVASCULAR: Regular rate and rhythm. No murmur appreciated. RESPIRATORY: No accessory muscle use. Clear to auscultation. Breath sounds equal bilaterally. GASTROINTESTINAL: Abdomen soft, non-tender, nondistended. Hepatic and splenic margins not palpable. MUSCULOSKELETAL: No obvious deformities. No clubbing. No cyanosis. No edema. NEUROLOGICAL: Decreased alertness with some confusion. No obvious cranial nerve deficits. Motor grossly within normal limits. Normal speech. PSYCHIATRIC: Confused, somewhat flat affect. Data Data Last Documented VS Vital Signs Date Time Temp Pulse Resp B/P (MAP) Pulse Ox O2 Delivery O2 Flow Rate FiO2 08/18/17 18:16 82 17 154/70 (98) 98 Nasal Cannula 2.00 Orders Orders Electrocardiogram (08/18/17 16:09) Ammonia (08/18/17 16:09) Complete Blood Count With Diff (08/18/17 16:09) Comprehensive Metabolic Panel (08/18/17 16:09) Prothrombin Time / Inr (Pt) (08/18/17 16:09) Act Partial Throm Time (Ptt) (08/18/17 16:09) Troponin I (08/18/17 16:09) Thyroid Stimulating Hormone (08/18/17 16:09) Urinalysis - C+S If Indicated (08/18/17 16:09) Lactic Acid Sepsis Protocol (08/18/17 16:09) Arterial Blood Gas (Abg) (08/18/17 16:09) Blood Culture (08/18/17 16:09) Chest, Single Ap (08/18/17 16:09) Ct Brain W/O Iv Contrast(Rout) (08/18/17 16:09) Blood Glucose (08/18/17 16:09) Ecg Monitoring (08/18/17 16:09) Iv Access Insert/Monitor (08/18/17 16:09) Cath For Specimen (08/18/17 16:09) Oximetry (08/18/17 16:09) Sodium Chloride 0.9% Flush (Ns Flush) (08/18/17 16:15) Sodium Chlor 0.9% 1000 Ml Inj (Ns 1000 M (08/18/17 16:09) Alcohol (Ethanol) (08/18/17 16:09) Urine Culture (08/18/17 16:20) Hip, Uni(Ap&Lat) W Ap Pelvis (08/18/17 ) Admit Order (Ed Use Only) (08/18/17 ) Labs Laboratory Tests Test 08/18/17 16:20 White Blood Count 7.7 TH/MM3 Red Blood Count 4.27 MIL/MM3 Hemoglobin 12.9 GM/DL Hematocrit 37.5 % Mean Corpuscular Volume 87.9 FL Mean Corpuscular Hemoglobin 30.2 PG Mean Corpuscular Hemoglobin Concent 34.4 % Red Cell Distribution Width 13.1 % Platelet Count 277 TH/MM3 Mean Platelet Volume 7.7 FL Neutrophils (%) (Auto) 47.7 % Lymphocytes (%) (Auto) 34.2 % Monocytes (%) (Auto) 11.4 % Eosinophils (%) (Auto) 6.0 % Basophils (%) (Auto) 0.7 % Neutrophils # (Auto) 3.7 TH/MM3 Lymphocytes # (Auto) 2.6 TH/MM3 Monocytes # (Auto) 0.9 TH/MM3 Eosinophils # (Auto) 0.5 TH/MM3 Basophils # (Auto) 0.1 TH/MM3 CBC Comment DIFF FINAL Differential Comment Prothrombin Time 11.9 SEC Prothromb Time International Ratio 1.2 RATIO Activated Partial Thromboplast Time 31.8 SEC Urine Color YELLOW Urine Turbidity CLEAR Urine pH 5.0 Urine Specific [place] 1.018 Urine Protein NEG mg/dL Urine Glucose (UA) NEG mg/dL Urine Ketones 40 mg/dL Urine Occult Blood NEG Urine Nitrite NEG Urine Bilirubin NEG Urine Urobilinogen 2.0 MG/DL Urine Leukocyte Esterase NEG Urine RBC 1 /hpf Urine WBC 2 /hpf Urine Squamous Epithelial Cells <1 /hpf Urine Bacteria OCC /hpf Urine Hyaline Casts 10 /lpf Urine Mucus FEW /lpf Microscopic Urinalysis Comment CATH-CULTURE IND Blood Urea Nitrogen 20 MG/DL Creatinine 1.06 MG/DL Random Glucose 64 MG/DL Total Protein 7.2 GM/DL Albumin 3.1 GM/DL Calcium Level 10.0 MG/DL Alkaline Phosphatase 179 U/L Aspartate Amino Transf (AST/SGOT) 51 U/L Alanine Aminotransferase (ALT/SGPT) 43 U/L Total Bilirubin 0.5 MG/DL Sodium Level 133 MEQ/L Potassium Level 4.8 MEQ/L Chloride Level 95 MEQ/L Carbon Dioxide Level 29.0 MEQ/L Anion Gap 9 MEQ/L Estimat Glomerular Filtration Rate 51 ML/MIN Lactic Acid Level 1.0 mmol/L Ammonia LESS THAN 10 MCMOL/L Troponin I LESS THAN 0.02 NG/ML Thyroid Stimulating Hormone 3rd Gen 3.040 uIU/ML Ethyl Alcohol Level LESS THAN 3 MG/DL MDM Medical Decision Making Medical Screen Exam Complete: Yes Emergency Medical Condition: Yes Interpretation(s) Review of EKG: Normal sinus rhythm at a rate of 84, normal axis, normal intervals, borderline right axis deviation, there is some nonspecific ST changes in the inferior leads, I do not think this represents an MS. Differential Diagnosis Confusion, stroke, weakness, dehydration, other Narrative Course Medical decision making INITIAL: 72-year-old woman presents emergency department with confusion weakness and feeling poorly. Patient is unable to provide much additional history. Reviewed recent admission. states not really taking her medications now making medication effect less likely. Will check labs, CT, x- ray of the left hip that were bothering her, reassess. González Reed MD Aug 18, 2017 16:47
--- NOTE | 2017-08-18 16:54 | RADRPT ---
EXAM DATE/TIME: 08/18/2017 16:31 [facility] COMPARISON: CT ABDOMEN & PELVIS W CONTRAST, August 03, 2014, 3:07. CHEST SINGLE AP, August 03, 2014, 0:41. CH EST SINGLE AP, August 10, 2017, 19:13. CHEST SINGLE AP, August 11, 2017, 9:00. INDICATIONS : General weakness and AMS. MEDICAL HISTORY : Hypertension. Chronic obstructive pulmonary disease. Emphysema. Coronary artery disease. Lupus. SURGICAL HISTORY : None. ENCOUNTER: Initial ACUITY: 4 - 6 days PAIN SCORE: 0/10 LOCATION: Bilateral chest FINDINGS: A single view of the chest demonstrates the lungs to be symmetrically aerated without evidence of mas s, infiltrate or effusion. Opacity lower lateral left lung was shown on prior CT to represent perica rdial fat. The cardiomediastinal contours are unremarkable. Osseous structures are intact. CONCLUSION: The lungs are clear. Wilfrid Jensen MD on August 18, 2017 at 16:50 Board Certified Radiologist. This report was verified electronically.
[2017-08-18 17:03] LABS: ALBUMIN 3.1 GM/DL (3.4-5.0); AST (GOT) 51 U/L (15-37); BLOOD UREA NITROGEN 20 MG/DL (7-18); CHLORIDE 95 MEQ/L (98-107); CREATININE 1.06 MG/DL (0.50-1.00); GLOMERULAR FILTRATION RATE 51 ML/MIN (>89); GLUCOSE,RANDOM 64 MG/DL (74-106); SODIUM (NA) 133 MEQ/L (136-145)
[2017-08-18 17:04] LABS: ALT (GPT) 43 U/L (10-53)
[2017-08-18 17:14] LABS: ALKALINE PHOSPHATASE 179 U/L (45-117); TOTAL BILIRUBIN ADULT 0.5 MG/DL (0.2-1.0); TOTAL PROTEIN 7.2 GM/DL (6.4-8.2); TROPONIN I LESS THAN 0.02 NG/ML (0.02-0.05)
--- NOTE | 2017-08-18 17:38 | RADRPT ---
EXAM DATE/TIME: 08/18/2017 17:26 [facility] COMPARISON: No previous studies available for comparison. INDICATIONS : Left hip pain, no injury. MEDICAL HISTORY : None. SURGICAL HISTORY : None. ENCOUNTER: Initial ACUITY: 1 day PAIN SCORE: 7/10 LOCATION: Left proximal hip FINDINGS: Examination of the left hip was performed with AP Pelvis. The primary and secondary trabecular patte rn of the femoral neck is intact. The hip joint is of normal width without significant sclerosis or bony hypertrophy. The acetabulum is grossly intact. CONCLUSION: Unremarkable examination of the left hip. Stuart Baron MD on August 18, 2017 at 17:34 Board Certified Radiologist. This report was verified electronically.
--- NOTE | 2017-08-18 17:54 | RADRPT ---
EXAM DATE/TIME: 08/18/2017 17:35 [facility] COMPARISON: CHEST SINGLE AP, August 03, 2014, 0:41. CHEST SINGLE AP, August 18, 2017, 16:31. INDICATIONS : Altered mental status. RADIATION DOSE: 56.35 CTDIvol (mGy) MEDICAL HISTORY : Cardiovascular disease. Hypertension. Gastroesophageal reflux disease.Hiatal hernia SURGICAL HISTORY : Cholecystectomy. ENCOUNTER: Initial ACUITY: 2 days PAIN SCALE: 0/10 LOCATION: cranial TECHNIQUE: Multiple contiguous axial images were obtained of the head. Using automated exposure control and adj ustment of the mA and/or kV according to patient size, radiation dose was kept as low as reasonably a chievable to obtain optimal diagnostic quality images. DICOM format image data is available electro nically for review and comparison. FINDINGS: CEREBRUM: The ventricles are normal for age. No evidence of midline shift hemorrhage or acute infarction. No extra-axial fluid collections are seen. There is a 1.3 cm area of rounded increased density in the le ft parietal region velasquez matter with pain and diminished density center. This abuts the dura. This is a solitary lesion. POSTERIOR FOSSA: The cerebellum and brainstem are intact. The 4th ventricle i s midline. The cerebellopontine angle is unremarkable. EXTRACRANIAL: The visualized portion of the orbits is intact. SKULL: The calvaria is intact. No evidence of skull fracture. CONCLUSION: Solitary 1.3 cm lesion velasquez white matter left parietal region with increased density on a thickened r im and isodensity centrally abutting the dura. Could represent an atypical meningioma or solitary met astatic lesion. There is a simply mild localized at surrounding edema with no significant mass effect Stuart Baron MD on August 18, 2017 at 17:45 Board Certified Radiologist. This report was verified electronically.
[2017-08-18 18:16] VITALS: BP 154/70; PULSE 82; RESP 17; O2SAT 98
--- NOTE | 2017-08-18 18:51 | HHI.HP ---
[facility] Service Family Medicine Primary Care Physician Venice Mixon MD Admission Diagnosis Altered mental status Diagnoses: International Travel<30 Days: No Contact w/Intl Traveler<30days: No Known Affected Area: No History of Present Illness Mrs. Neves is a 72 y/o F with an extensive PMHx presenting to the ED for AMS. Patient initially presented with her who provided the history, however he is not in the room or could be reached by phone at the time of my evaluation. Per ED physician sign out, patient was recently discharged after a hypotensive episode secondary to dehydration. Since being discharged the patient "did not seem quite right" to the so he took her back in to the ED today for evaluation. Upon entering the room the patient does awaken to stimulation, but is very slow to respond. She is unable to state why she is in the ED, but is able to state her " will be right back." Otherwise she is unable to participate in the history or review of symptoms and only follows commands intermittently during the exam. Update: contacted and confirms she has "not been herself" since being discharged from her last hospitalization. She is having difficulty finding words is becoming frustrated as if she knows what she wants to say. She has been walking slower with little steps. He also reports she will complain at times of what he believes is pain, but she is unable to communicate that. He denies any new headaches or seizures., As for her medications, she has taken 2 hydrocodone (last dose 2 days ago) since being discharged, otherwise has been taking her prescribed medications. He believes her pain has intensified since leaving the hospital. She has also had decreased PO intake since her discharge as well. He denies that she could possibly overdose on her medications as she rarely uses them and has not noticed any large amounts of pills missing. On ROS , he states that she has had nausea without vomiting and one episode of hallucinations of "ants on the ceiling." Otherwise he states the ROS is negative. He is also unable to give a and appropriate medicine reconciliation, therefore medical team will use prior discharge medications at this time. (Mannie Mclaughlin MD R2) History of Present Illness Patient was seen during morning rounds with the administration vice president team today. She remains significantly confused and altered and is unable to provide any history or updates. is at the bedside he is able to provide some more history. He states that she has been complaining of a headache for the last 2-4 weeks that was unresponsive to Tylenol, although while her behavior is becoming more erratic and she has become more altered. She also began having significant difficulty with speaking, having slurred words and difficulty with word finding. She also has had a 32 pound weight loss over the last year which was attributed to diet and eating right. He states that this morning she seems to be more confused and she is unable to verbalize how she feels. (Rene Berman MD) Review of Systems ROS Limitations: Clinical Condition, Altered Mental Status, Uncooperative, Poor Historian Other Patient is unable to answer ROS questioning at the time of my evaluation. (Mannie Mclaughlin MD R2) Past Family Social History Past Medical History Per chart review: COPD, followed by Dr. Khan Fibromyalgia "Inactive systemic lupus erythematosus" . She has seen Dr. Vargas with rheumatology in the past coronary artery disease with no prior stents. Previously underwent catheter by Dr. Perez in 1994. Now followed by Dr. Ortega. 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 svitlana de guzman) Cardiac catheterization in 1994. No stents Reported Medications Patient and spouse unable to give appropriate medicine reconciliation (Mannie Mclaughlin MD R2) Allergies: Coded Allergies: adhesive (Unverified Allergy, Intermediate, Itching, 08/18/17) cephalexin (Unverified Allergy, Mild, 08/18/17) Family History Mother had colon cancer and of complications of surgery at 72 Father had a stroke and two and a half years later at age 78 is unable to give full FMHx Social History Smoked 2 packs of cigarettes per day for over 45 years. Quit smoking in 2008 and lives at home with her . No alcohol or illicit drug use (Mannie Mclaughlin MD R2) Physical Exam Vital Signs Vital Signs Date Time Temp Pulse Resp B/P (MAP) Pulse Ox O2 Delivery O2 Flow Rate FiO2 08/18/17 18:16 82 17 154/70 (98) 98 Nasal Cannula 2.00 08/18/17 16:15 98 Room Air 08/18/17 16:00 83 15 149/64 (92) 94 Physical Exam GENERAL: Elderly female lying in bed in NAD. HEENT: AT, NC with EOMI. PERRLA. No rhinorrhea. MMM. No LAD, JVD, or thyroid abnormality appreciated. RESPIRATORY: CTAB with no CRW. No increased WOB. CARDIOVASCULAR: RRR, no m/r/g. Radial and DP pulses 2+ and symmetric bilaterally. Brisk capillary refill. ABDOMEN: Soft, nontender, nondistended with +BS. No hepatosplenomegaly. EXTREMITIES: No remarkable dependent edema or varicosities. No cyanosis or erythema. MUSCULOSKELETAL: No calf tenderness. Ambulating with assistance per report. SKIN: Essentially clear with no significant rash or lesions. Adequate skin turgor. NEUROLOGICAL: Speech- Word finding with mild dysarthria. Poor focus, attention, and comprehension. Cranial nerves- 2 through 12 intact. Motor/sensory/reflexes- Face- No facial droop. No tongue deviation. RUE- 4/5 strength in all musc groups, sensation intact. Reflexes 2+. LUE- 4/5 strength in all musc groups, sensation intact. Reflexes 2+. RLE- 4/5 strength in all musc groups, sensation intact. Reflexes 2+. LLE- 4/5 strength in all musc groups, sensation intact. Reflexes 2+. Pronator drift test- Unable to completed Babinski- flexion Rapid alternating movements- Unable to be completed Unable to repeat phrases. Able to name simple objects. Shot term memory not fully intact. Unable to perform heel to fernandez. *Patient unable to fully complete physical exam due to being unable to fully comprehend tests. Laboratory Laboratory Tests Test 08/18/17 16:20 White Blood Count 7.7 Red Blood Count 4.27 Hemoglobin 12.9 Hematocrit 37.5 Mean Corpuscular Volume 87.9 Mean Corpuscular Hemoglobin 30.2 Mean Corpuscular Hemoglobin Concent 34.4 Red Cell Distribution Width 13.1 Platelet Count 277 Mean Platelet Volume 7.7 Neutrophils (%) (Auto) 47.7 Lymphocytes (%) (Auto) 34.2 Monocytes (%) (Auto) 11.4 Eosinophils (%) (Auto) 6.0 Basophils (%) (Auto) 0.7 Neutrophils # (Auto) 3.7 Lymphocytes # (Auto) 2.6 Monocytes # (Auto) 0.9 Eosinophils # (Auto) 0.5 Basophils # (Auto) 0.1 CBC Comment DIFF FINAL Differential Comment Prothrombin Time 11.9 Prothromb Time International Ratio 1.2 Activated Partial Thromboplast Time 31.8 Urine Color YELLOW Urine Turbidity CLEAR Urine pH 5.0 Urine Specific [place] 1.018 Urine Protein NEG Urine Glucose (UA) NEG Urine Ketones 40 Urine Occult Blood NEG Urine Nitrite NEG Urine Bilirubin NEG Urine Urobilinogen 2.0 Urine Leukocyte Esterase NEG Urine RBC 1 Urine WBC 2 Urine Squamous Epithelial Cells <1 Urine Bacteria OCC Urine Hyaline Casts 10 Urine Mucus FEW Microscopic Urinalysis Comment CATH-CULTURE IND Blood Urea Nitrogen 20 Creatinine 1.06 Random Glucose 64 Total Protein 7.2 Albumin 3.1 Calcium Level 10.0 Alkaline Phosphatase 179 Aspartate Amino Transf (AST/SGOT) 51 Alanine Aminotransferase (ALT/SGPT) 43 Total Bilirubin 0.5 Sodium Level 133 Potassium Level 4.8 Chloride Level 95 Carbon Dioxide Level 29.0 Anion Gap 9 Estimat Glomerular Filtration Rate 51 Lactic Acid Level 1.0 Ammonia LESS THAN 10 Troponin I LESS THAN 0.02 Thyroid Stimulating Hormone 3rd Gen 3.040 Ethyl Alcohol Level LESS THAN 3 Date/Time Source Procedure Growth Status 08/18/17 16:20 Blood Peripheral Aerobic Blood Culture Pending Received 08/18/17 16:20 Blood Peripheral Anaerobic Blood Culture Pending Received 08/18/17 16:20 Urine Catheterized Urine Urine Culture Pending Received (Mannie Mclaughlin MD R2) Physical Exam GENERAL: Elderly female appears uncomfortable and moving around in bed but is unable to follow commands HEENT: Bilateral pupils are equal, round, and reactive to light, unable to test EOMI RESPIRATORY: CTAB with no CRW. No increased WOB. CARDIOVASCULAR: RRR, no m/r/g. ABDOMEN: Soft, nondistended with +BS. She is tender to palpation in the suprapubic region EXTREMITIES: No remarkable dependent edema or varicosities. No cyanosis or erythema. NEUROLOGICAL: Unable to assess as she is not following commands or answering questions appropriately (Rene Berman MD) Result Diagram: 08/18/17 1620 08/18/17 1620 Imaging Last [address] 08/18/17 1609 Signed Impressions: Service Date/Time: Friday, August 18, 2017 17:35 - CONCLUSION: Solitary 1.3 cm lesion velasquez white matter left parietal region with increased density on a thickened rim and isodensity centrally abutting the dura. Could represent an atypical meningioma or solitary metastatic lesion. There is a simply mild localized at surrounding edema with no significant mass effect Stuart Baron MD Chest X-Ray 08/18/17 1609 Signed Impressions: Service Date/Time: Friday, August 18, 2017 16:31 - CONCLUSION: The lungs are clear. Wilfrid Jensen MD Hip and Pelvis X-Ray 08/18/17 0000 Signed Impressions: Service Date/Time: Friday, August 18, 2017 17:26 - CONCLUSION: Unremarkable examination of the left hip. Stuart Baron MD (Mannie Mclaughlin MD R2) Imaging Last [address] 08/18/17 1609 Signed Impressions: Service Date/Time: Friday, August 18, 2017 17:35 - CONCLUSION: Solitary 1.3 cm lesion velasquez white matter left parietal region with increased density on a thickened rim and isodensity centrally abutting the dura. Could represent an atypical meningioma or solitary metastatic lesion. There is a simply mild localized at surrounding edema with no significant mass effect Stuart Baron MD Chest X-Ray 08/18/17 1609 Signed Impressions: Service Date/Time: Friday, August 18, 2017 16:31 - CONCLUSION: The lungs are clear. Wilfrid Jensen MD Hip and Pelvis X-Ray 08/18/17 0000 Signed Impressions: Service Date/Time: Friday, August 18, 2017 17:26 - CONCLUSION: Unremarkable examination of the left hip. Stuart Baron MD (Rene Berman MD) Caprini VTE Risk Assessment Caprini VTE Risk Assessment: Mod/High Risk (score >= 2) Caprini Risk Assessment Model Point Value = 1 Point Value = 2 Point Value = 3 Point Value = 5 Age 41-60 Minor surgery BMI > 25 kg/m2 Swollen legs Varicose veins or History of unexplained or recurrent spontaneous Oral contraceptives or hormone replacement Sepsis (< 1 month) Serious lung disease, including pneumonia (< 1 month) Abnormal pulmonary function Acute myocardial infarction Congestive heart failure (< 1 month) History of inflammatory bowel disease Medical patient at bed rest Age 61-74 Arthroscopic surgery Major open surgery (> 45 min) Laparoscopic surgery (> 45 min) Malignancy Confined to bed (> 72 hours) Immobilizing plaster cast Central venous access Age >= 75 History of VTE Family history of VTE Factor V Leiden Prothrombin [id number] Lupus anticoagulant Anticardiolipin antibodies Elevated serum homocysteine Heparin-induced thrombocytopenia Other congenital or acquired thrombophilia Stroke (< 1 month) Elective arthroplasty Hip, pelvis, or leg fracture Acute spinal cord injury (< 1 month) Prophylaxis Regimen Total Risk Factor Score Risk Level Prophylaxis Regimen 0-1 Low Early ambulation 2 Moderate Order ONE of the following: *Sequential Compression Device (SCD) *Heparin 5000 units SQ BID 3-4 Higher Order ONE of the following medications: *Heparin 5000 units SQ TID *Enoxaparin/Lovenox 40 mg SQ daily (WT < 150 kg, CrCl > 30 mL/min) *Enoxaparin/Lovenox 30 mg SQ daily (WT < 150 kg, CrCl > 10-29 mL/min) *Enoxaparin/Lovenox 30 mg SQ BID (WT < 150 kg, CrCl > 30 mL/min) AND/OR *Sequential Compression Device (SCD) 5 or more Highest Order ONE of the following medications: *Heparin 5000 units SQ TID (Preferred with Epidurals) *Enoxaparin/Lovenox 40 mg SQ daily (WT < 150 kg, CrCl > 30 mL/min) *Enoxaparin/Lovenox 30 mg SQ daily (WT < 150 kg, CrCl > 10-29 mL/min) *Enoxaparin/Lovenox 30 mg SQ BID (WT < 150 kg, CrCl > 30 mL/min) AND *Sequential Compression Device (SCD) (Mannie Mclaughlin MD R2) Assessment and Plan Assessment and Plan Mrs. Neves is a 72 y/o F presenting with AMS found to have a new L parietal brain mass. Code Status DNR Discussed Condition With Dr. Reed, ED physician (Mannie Mclaughlin MD R2) Attending Attestation THIS CASE WAS DISCUSSED WITH THE RESIDENT PHYSICIANS. I HAVE REVIEWED THE RECORD AND AGREE WITH THE ABOVE NOTE AND PLAN OF CARE WAS DISCUSSED. I HAVE AUTHORIZED THE ORDER FOR ADMISSION TO AN IN-PATIENT STATUS. (Rene Berman MD) Problem List: (1) Brain mass ICD Codes: G93.9 - Disorder of brain, unspecified Status: Acute Plan: Patient presenting with AMS found to have new brain lesions. Patient's spouse denies any new headaches or seizures, but does endorse new weakness, aphasia, and cognitive dysfunction. Per her husbands report, patient had an upright MRI approximately [address] Lancaster, neurology, for dementia that show no abnormalities. -CT head: Solitary 1.3cm lesion in the velasquez-white matter of the L parietal region with increased density on a thickened rim and isodensity centrally abutting the dura. Could represent atypical meningioma or solitary metastatic lesion. Mild localized area with surrounding edema with no significant mass effect. -Brain MRI with contrast, chest CT with contrast, and abdomen/pelvic CT to evaluate lesion and possible metastatic sites with contrast deferred due to renal insufficiency at this time, plan to order once kidney function has improved -Defer steroids at this time as lesion currently shows no mass effect and cannot rule out CUSTOMER ACCOUNT REPRESENTATIVE lymphoma -Lovenox for DVT/hypercoagulability prophylaxis -Medical oncology consulted, appreciate recommendations (2) Altered mental status ICD Codes: R41.82 - Altered mental status, unspecified Status: Acute Plan: Patient presenting with altered mental status -UDS: Positive opiates, otherwise negative -Alcohol less than 3 -Ammonia less than 10 -TSH 3.04 -Troponin less than 0.02, repeat x1 -Vitamin B12 1950 -Lactic acid 1.0 (3) JACKY (acute kidney injury) ICD Codes: N17.9 - Acute kidney failure, unspecified Status: Acute Plan: Stage 1 JACKY likely secondary to dehydration, recent hospitalization due to hypotension secondary to dehydration -Creatinine 1.06 (baseline unknown per chart review, improved since last admission) -Urinalysis with 40 ketones -Normal saline at maintenance (110 mL/h) -Continue to monitor (4) Anxiety with depression ICD Codes: F41.8 - Other specified anxiety disorders Status: Chronic Plan: -Continue home citalopram -Hold home clonazepam (5) PVD (peripheral vascular disease) ICD Codes: I73.9 - Peripheral vascular disease, unspecified Status: Chronic Plan: -Continue home cilostazol (6) Hyperlipidemia ICD Codes: E78.5 - Hyperlipidemia, unspecified Status: Chronic Plan: -Continue home lovastatin -Continue home aspirin (7) COPD (chronic obstructive pulmonary disease) ICD Codes: J44.9 - Chronic obstructive pulmonary disease, unspecified Status: Chronic Plan: -Continue home Spiriva -Continue home Ventolin -Continue home fometerol -Continue home Tessalon Perles (8) Nutrition, metabolism, and development symptoms ICD Codes: R63.8 - Other symptoms and signs concerning food and fluid intake Status: Acute Plan: -Fluids: Normal saline at 105 mL/h (maintenance fluids) -Diet: Nothing by mouth, speech therapy swallow evaluation ordered; hypoglycemia protocol in placed -Electrolytes: Hyponatremic to 133, hypoglycemic to 64; continue monitor (9) No contraindication to deep vein thrombosis (DVT) prophylaxis ICD Codes: Z78.9 - Other specified health status Status: Acute Plan: -Lovenox 40 mg daily -SCDs (Mannie Mclaughlin MD R2) Problem List: (1) Brain mass ICD Codes: G93.9 - Disorder of brain, unspecified Status: Acute Plan: Primary brain mass versus metastatic lesion versus meningioma Consultation to hematology/oncology with Dr. Jarrett -appreciate recommendations -Tumor markers pending -MRI of the brain pending -CT of the thorax, abdomen, pelvis pending Decadron IV 10 mg 1 -Continue Decadron 4 mg IV every 8 hours Neurology consult placed as patient is known to Dr. Darden for DVT/ hypercoagulability prophylaxis EEG pending (2) Altered mental status ICD Codes: R41.82 - Altered mental status, unspecified Status: Acute Plan: Patient presenting with altered mental status likely secondary to brain mass and edema -Electrolytes relatively benign -UDS: Positive opiates, otherwise negative -Alcohol less than 3 -Ammonia less than 10 -TSH 3.04 -Troponin less than 0.02, repeat x1 -Vitamin B12 1950 -Lactic acid 1.0 (3) JACKY (acute kidney injury) ICD Codes: N17.9 - Acute kidney failure, unspecified Status: Acute Plan: Stage 1 JACKY likely secondary to dehydration on arrival -Status post IV hydration with normalization of renal function and creatinine of 0.79 -Urinalysis with 40 ketones and occasional bacteria -Given suprapubic tenderness with bacteriuria, we will treat for possible UTI with Levaquin -Normal saline IV hydration at 110 mL/hour -Continue to monitor (4) Urinary tract infection ICD Codes: N39.0 - Urinary tract infection, site not specified Plan: UA with ketones and bacteriuria Tenderness to palpation in suprapubic region Started on Levaquin 08/19/17 Urine culture pending (5) Anxiety with depression ICD Codes: F41.8 - Other specified anxiety disorders Status: Chronic Plan: Patient is n.p.o. -Hold home citalopram -Hold home clonazepam (6) PVD (peripheral vascular disease) ICD Codes: I73.9 - Peripheral vascular disease, unspecified Status: Chronic Plan: -Hold home cilostazol (7) Hyperlipidemia ICD Codes: E78.5 - Hyperlipidemia, unspecified Status: Chronic Plan: Patient is currently n.p.o. -will cover with as needed antihypertensives -Hold home lovastatin -Continue home aspirin (8) COPD (chronic obstructive pulmonary disease) ICD Codes: J44.9 - Chronic obstructive pulmonary disease, unspecified Status: Chronic Plan: -Continue home Spiriva -Continue home Ventolin -Continue home fometerol -Continue home Tessalon Perles (9) Nutrition, metabolism, and development symptoms ICD Codes: R63.8 - Other symptoms and signs concerning food and fluid intake Status: Acute Plan: -Fluids: Normal saline at 100 mL/h (maintenance fluids) -Diet: Nothing by mouth, speech therapy swallow evaluation ordered; hypoglycemia protocol in placed -Electrolytes: Monitor and replete as needed (10) No contraindication to deep vein thrombosis (DVT) prophylaxis ICD Codes: Z78.9 - Other specified health status Status: Acute Plan: -Lovenox 40 mg daily -SCDs (Rene Berman MD) Physician Certification 2 Midnight Certification Type: Admission for Inpatient Services Order for Inpatient Services The services are ordered in accordance with Medicare regulations or non- Medicare payer requirements, as applicable. In the case of services not specified as inpatient-only, they are appropriately provided as inpatient services in accordance with the 2-midnight benchmark. Estimated LOS (days): 3 3 days is the estimated time the patient will need to remain in the hospital, assuming treatment plan goals are met and no additional complications. Post-Hospital Plan: Home (Mannie Mclaughlin MD R2) Problem Qualifiers (1) Altered mental status: Qualified Codes: R41.0 - Disorientation, unspecified (2) Urinary tract infection: Qualified Codes: N30.00 - Acute cystitis without hematuria Mannie Mclaughlin MD R2 Aug 18, 2017 18:51 Rene Berman MD Aug 19, 2017 12:20
[2017-08-18 20:00] VITALS: BP 153/67; PULSE 83; RESP 19; TEMP 98.3; O2SAT 94
[2017-08-18] MEDS ORDERED: HEPARIN SODIUM - SQ 10,000 UNITS/ML VIAL SQ SCH (20:00)
[2017-08-18] MEDS ORDERED: SODIUM CHLORIDE 0.9% FLUSH 10 ML FLUSH IV FLUSH SCH (21:00)
[2017-08-18 21:48] VITALS: PULSE 84
[2017-08-18] MEDS: SODIUM CHLORIDE 0.9% FLUSH 10 ML FLUSH IV FLUSH SCH (22:05)
[2017-08-18] MEDS: SODIUM CHLOR 0.9% 1000 ML INJ 1,000 ML IV SCH (22:33)
[2017-08-19] VITALS: BP 122/68; PULSE 85; RESP 18; TEMP 98.4; O2SAT 93
[2017-08-19] MEDS ORDERED: DEXTROSE 50% IN WATER 50 ML VIAL(D50) IV PUSH PRN (03:00)
[2017-08-19] MEDS ORDERED: GLUCAGON 1 MG/ML VIAL IM PRN (03:00)
[2017-08-19] MEDS ORDERED: BENZONATATE 100 MG CAP PO PRN (03:00)
[2017-08-19] MEDS ORDERED: ALBUTEROL SULFATE 90 MCG/ACT HFA 8 GM INHALER INH PRN (03:00)
[2017-08-19] MEDS ORDERED: SENNOSIDES 8.6 MG TAB PO PRN (03:30)
[2017-08-19] MEDS ORDERED: BISACODYL 10 MG SUPP RECTAL PRN (03:30)
[2017-08-19] MEDS ORDERED: ACETAMINOPHEN 325 MG TAB PO PRN (03:30)
[2017-08-19] MEDS ORDERED: MAGNESIUM HYDROXIDE SUSP 30 ML CUP PO PRN (03:30)
[2017-08-19] MEDS ORDERED: LACTULOSE SYRUP 20 GM/30 ML CUP PO PRN (03:30)
[2017-08-19] MEDS ORDERED: ONDANSETRON HCL 4 MG/2 ML VIAL IVP PRN (03:30)
[2017-08-19 04:00] VITALS: BP 126/77; PULSE 88; RESP 17; TEMP 98.5; O2SAT 92
[2017-08-19] MEDS: SODIUM CHLOR 0.9% 1000 ML INJ 1,000 ML IV SCH ×3 (05:32→19:00)
[2017-08-19 08:00] VITALS: BP 140/66; PULSE 81; PULSE 89; RESP 16; TEMP 98.9; O2SAT 91
[2017-08-19] MEDS: ESCITALOPRAM OXALATE 10 MG TAB PO SCH (09:00)
[2017-08-19] MEDS ORDERED: SACCHAROMYCES BOULARDII PO SCH (09:00)
[2017-08-19] MEDS: CHOLECALCIFEROL (VIT D3) 1000 UNIT TAB PO SCH ×2 (09:00→21:00)
[2017-08-19] MEDS: PRAVASTATIN SOD 40 MG TAB PO SCH (09:00)
[2017-08-19] MEDS ORDERED: ENOXAPARIN SODIUM 40 MG/0.4 ML SYRINGE SQ SCH (09:00)
[2017-08-19] MEDS ORDERED: NON-FORMULARY DRUG (Biotin 5,000 MCG) PO SCH (09:00)
[2017-08-19] MEDS ORDERED: FORMOTEROL FUMARATE INH SCH (09:00)
[2017-08-19] MEDS ORDERED: PANTOPRAZOLE SOD 40 MG DELAYED RELEASE TAB PO SCH (09:00)
[2017-08-19] MEDS: ASPIRIN EC 81 MG TABEC PO SCH (09:00)
[2017-08-19 09:37] LABS: AUTOMATED NEUTROPHIL # 2.7 TH/MM3 (1.8-7.7); BASOPHIL # 0.1 TH/MM3 (0-0.2); BASOPHIL % 0.8 % (0.0-2.0); EOSINOPHIL # 0.4 TH/MM3 (0-0.4); EOSINOPHIL % 6.7 % (0.0-4.0); HEMATOCRIT 36.1 % (35.0-46.0); HEMOGLOBIN 12.2 GM/DL (11.6-15.3); LYMPHOCYTE # 2.4 TH/MM3 (1.0-4.8); MEAN CELL VOLUME 89.1 FL (80.0-100.0); MEAN CORPUSCULAR HEMOGLOBIN 30.1 PG (27.0-34.0); MEAN CORPUSCULAR HGB CONC 33.8 % (32.0-36.0); MEAN PLATELET VOLUME 7.8 FL (7.0-11.0); MONO % 11.8 % (0.0-8.0); MONOCYTE # 0.7 TH/MM3 (0-0.9); NEUT % 42.7 % (16.0-70.0); PLATELET COUNT 293 TH/MM3 (150-450); RED BLOOD COUNT 4.05 MIL/MM3 (4.00-5.30); RED CELL DISTRIBUTION WIDTH 13.8 % (11.6-17.2); WHITE BLOOD COUNT 6.2 TH/MM3 (4.0-11.0)
[2017-08-19] MEDS: TIOTROPIUM BROMIDE 18 MCG INH INH SCH (09:39)
[2017-08-19 09:49] LABS: AST (GOT) 40 U/L (15-37); BICARBONATE 26.7 MEQ/L (21.0-32.0); BLOOD UREA NITROGEN 15 MG/DL (7-18); CALCIUM 9.3 MG/DL (8.5-10.1); CHLORIDE 99 MEQ/L (98-107); CREATININE 0.79 MG/DL (0.50-1.00); GLOMERULAR FILTRATION RATE 72 ML/MIN (>89); GLUCOSE,RANDOM 57 MG/DL (74-106); SODIUM (NA) 135 MEQ/L (136-145)
[2017-08-19 09:50] LABS: ALT (GPT) 33 U/L (10-53)
[2017-08-19 09:52] LABS: ALKALINE PHOSPHATASE 151 U/L (45-117); TOTAL BILIRUBIN ADULT 0.5 MG/DL (0.2-1.0); TOTAL PROTEIN 6.7 GM/DL (6.4-8.2)
[2017-08-19] MEDS ORDERED: LORazepam 2 MG/ML VIAL IV PUSH PRN (10:15)
[2017-08-19] MEDS ORDERED: DIATRIZOATE MEGLUM/DIATRIZOATE SOD 9 ML CUP PO ONE (10:15)
[2017-08-19] MEDS ORDERED: DEXAMETHASONE SOD PHOS 20 MG/5 ML VIAL IV PUSH ONE (10:15)
[2017-08-19] MEDS ORDERED: RESP: ALBUTEROL 2.5 MG/IPRATROPIUM 0.5 MG NEB (PRN) NEB (10:15)
[2017-08-19] MEDS: PANTOPRAZOLE SODIUM 40 MG VIAL IV PUSH SCH (10:47)
[2017-08-19] MEDS ORDERED: GADODIAMIDE PF 287 MG/ML 5 ML VIAL (for RAD MRI) IVCONTRAST ONE (11:08)
--- NOTE | 2017-08-19 11:54 | RADRPT ---
EXAM DATE/TIME: 08/19/2017 11:03 [facility] COMPARISON: US ABDOMEN - LIVER, August 11, 2017, 8:28. CHEST SINGLE AP, August 18, 2017, 16:31. CHEST SINGL E AP, August 10, 2017, 19:13. CT BRAIN W/O CONTRAST, August 18, 2017, 17:35. INDICATIONS : Mass. CONTRAST: 14 cc Omniscan (gadodiamide) IV MEDICAL HISTORY : Hypertension. Rheumatoid arthritis. Chronic obstructive pulmonary disease. SURGICAL HISTORY : Cholecystectomy. Inguinal hernia repair. ENCOUNTER: Initial ACUITY: 1 day PAIN SCORE: 0/10 LOCATION: cranial TECHNIQUE: Multiplanar, multisequence MRI of the brain was performed both prior to and following the administrat ion of paramagnetic contrast. FINDINGS: CEREBRUM: There is a rounded mass identified within the left frontal lobe with expansion of the adjacent gyrus. This mass measures 1.3 cm in size and is associated with acute blood products and minimal adjacent t umefactive edema within the white matter. There is enhancement within the mass and adjacent white mat ter after the administration of contrast. This area demonstrates restricted diffusion. POSTERIOR FOSSA: The cerebellum and brainstem are intact. The 4th ventricle is midline. The cerebellopontine angle is unremarkable. The cerebellar tonsils are normal in position. DIFFUSION IMAGING: Focal area of restricted diffusion identified within the left frontal mass.. EXTRACRANIAL: The visualized portions of the orbits and paranasal sinuses are unremarkable. POST-CONTRAST: Enhancement identified within the mass and adjacent white matter enhancement. CONCLUSION: Hemorrhagic enhancing mass identified within the left frontal lobe with minimal adjacent tumefactive edema. These findings are suggestive of a primary brain neoplasm. Given the minimal adjacent edema it metastatic lesion is considered less likely.. Renee Garcia MD on August 19, 2017 at 11:44 Board Certified Radiologist. This report was verified electronically.
--- NOTE | 2017-08-19 11:56 | MB ---
cc: STEPHEN COOK M.D. DATE OF CONSULTATION: 08/19/2017. REASON FOR CONSULTATION: Oncology was consulted to render opinion regarding a patient with altered mental status and a mass in the left parietal lobe. ATTENDING PHYSICIAN: Dr. Mclaughlin. HISTORY OF PRESENT ILLNESS: The patient is 72-year-old female recently admitted to the hospital for dehydration and hypotension. After discharge from hospital, she has not been feeling well. At this time, the patient is quite somnolent and has no ability to provide me a history and the history is provided from her at the bedside. According to the , the patient has been having headaches on and off for about a month. Her headache was not relieved with Tylenol. Since discharge from the hospital, she had been having slurring of speech and difficulty finding words. She also had an unsteady shuffling gait. She was progressively getting more confused. She has lost about 32 pounds over the last one year but he attributes that to dieting and stopping drinking soda. She reportedly had chills but no fever. She has intermittent sweats. She has yearly mammograms which are unremarkable. She had a colonoscopy about three years ago, which also reportedly was unremarkable. She did not complain of any chest pain or shortness of breath or cough. She has had diffuse joint pain due to fibromyalgia. She also had chronic abdominal pain since mesh placed before ventral hernia repair. PAST MEDICAL HISTORY: 1. Chronic obstructive pulmonary disease. 2. Fibromyalgia. 3. Lupus. 4. Coronary artery disease. 5. Hyperlipidemia. 6. Gastroesophageal reflux disease (GERD). 7. Hypertension. 8. Remote history of hepatitis A and B. 9. Herniated disc with chronic back pain. 10. Osteoarthritis. 11. Cataracts. 12. Peripheral vascular disease. PAST SURGICAL HISTORY: 1. Laparoscopic cholecystectomy. 2. Ventral hernia repair with mesh placement. 3. Cardiac catheterization. 4. Colonoscopy about three years ago. FAMILY HISTORY: Mother had colon cancer. One son is healthy. SOCIAL HISTORY: Smoked two packs a day for 45 years and quit in 2008. No alcohol use. Lives with her . ALLERGIES: 1. ADHESIVES. 2. CEPHALEXIN. CURRENT MEDICATIONS: 1. Decadron. 2. Levaquin. 3. Protonix. 4. Lovenox. 5. Aspirin. 6. Vitamin D3. 7. Pletal. 8. Lexapro. 9. Pravastatin. 10. Spiriva. 11. Os-Edgar. 12. Belen-Colace. REVIEW OF SYSTEMS: Obtained from her as above. PHYSICAL EXAMINATION: VITAL SIGNS: Temperature 98.9, blood pressure 140/66, 02 saturation 91%. GENERAL: The patient is quite somnolent. She is arousable with painful stimulation. When I palpated her abdomen, she woke up but then fell back to sleep. She is not able to provide any history. HEAD, EYES, EARS, NOSE, THROAT: Atraumatic, normocephalic. Pupils equal, round, reactive to light. OROPHARYNX: Dry mucosa. NECK: No thyromegaly. No palpable mass. LYMPHATIC: No palpable cervical, clavicular, axillary or inguinal lymph nodes. CARDIOVASCULAR: Regular S1 and S2. No murmur. LUNGS: Clear to auscultation anteriorly. ABDOMEN: Abdomen is soft. Positive bowel sounds. It is a little tender in the lower abdomen and when I palpated her abdomen, she woke up and states she has pain. EXTREMITIES: No cyanosis or clubbing. SCDs in place. NEUROLOGIC EXAM: She is moving all four extremities. LABORATORY DATA: Laboratory data dated August 19, 2017 was reviewed. ASSESSMENT: 1. Acute mental status change: She started slurring her speech and has expressive aphasia about a week ago. She also has a shuffling unsteady gait. She now has developed increased confusion. She has had a headache on and off for about a month not relieved with Tylenol. CT of the head showed a solitary 1.3 cm mass in the left parietal region with increased edema. This could be atypical meningioma versus a solitary metastatic lesion. She was started on Decadron. At this time, she is still somnolent. She is awaiting a neurology evaluation. MRI of the brain has been ordered and is still pending. Given her constitutional symptoms, we need to rule out metastatic disease. CT of the chest, abdomen and pelvis also has been ordered and is pending. Will check tumor markers. Further recommendations will depend on the above evaluation. If CT is unremarkable, consult neurosurgery to consider resecting this mass and getting a tissue diagnosis. 2. History of chronic obstructive pulmonary disease. 3. Fibromyalgia and diffuse pain. 4. Abdominal pain. According to her , it is chronic since placement of mesh for a ventral hernia repair. CT of the abdomen and pelvis is pending for further evaluation. 5. Coronary artery disease. 6. Hypertension. 7. Hyperlipidemia. 8. Peripheral vascular disease. RECOMMENDATIONS: 1. Discussed with the patient's . 2. Await MRI of the brain. 3. Await CT of the chest, abdomen and pelvis. 4. Check tumor markers. 5. Continue Decadron. 6. Await neurology evaluation. 7. Will consult neurosurgery for resection of the mass if CT does not show any primary tumor. Thank you, Dr. Mclaughlin, for asking me to see this patient. MD ANITA Pittman/ROMINA /10:35 AM /11:38 AM MTDD
--- NOTE | 2017-08-19 12:06 | MB ---
cc: DANITA HOSKINS M.D. DATE OF CONSULTATION: 08/19/2017 DATE OF : 1945, age 72. REASON FOR CONSULTATION: Change in mental status, brain lesion. HISTORY OF PRESENT ILLNESS: This is a 72-year-old woman who has been seen in the past in the office by Dr. Lancaster, and had per her a normal MRI sometime in March at [facility] in [facility]. This was done from memory issues. Apparently she presented for change in mental status. She is not her usual self. She is not very verbal. Currently she is just laying in bed. She was just discharged last hospitalization for I believe dehydration and is having some trouble with words, frustrated. No seizures reported. She had noted in the chart some nausea, one episode of hallucinations. PAST MEDICAL HISTORY: 1. COPD. 2. Fibromyalgia. 3. Inactive lupus. 4. Heart disease. 5. Hyperlipidemia. 6. Hypertension. PAST SURGICAL HISTORY: 1. Hernia repair. 2. Cardiac cath. No stents. ALLERGIES: ADHESIVE CEPHALEXIN FAMILY HISTORY: Mother had colon cancer. Father stroke. SOCIAL HISTORY: She smoked two packs per day for 45 years, quit in 2008. She lives with her . No alcohol, no drugs. HOME MEDICATIONS: 1. Probiotics. 2. Vitamin D. 3. Calcium. 4. Biotin. 5. Baby aspirin. 6. Ventolin. 7. Spiriva. 8. Pantoprazole 9. Lovastatin. 10. [place] for pain. 11. Formoterol inhaler. 12. Lexapro. 13. Klonopin 0.5 milligrams t.i.d. p.r.n. 14. Cilostazol. 15. Tessalon Perles. PHYSICAL EXAMINATION: Vital signs: Temperature is 98.9, pulse 89, respiratory rate 16, blood pressure 140/66. NECK: Supple. No carotid bruits. HEART: Regular. NEUROLOGIC: She is somnolent, arousable, opens her eyes, does not follow commands. Moans if you touch her. No gaze preference, no facial asymmetry. Motorwise: She seems to move everything equally. She is just mildly weak from chronic pain. Reflexes are 2+. She withdraws. She does not do cerebellar testing. Gait cannot be assessed at this time, nor memory. LABORATORY DATA: CBC is really unremarkable. Coag panel: INR is 1.2, PTT 31.8. PT 11.9. Chemistries: sodium 135, glucose was 57 and then follow up is 135. Ammonia level 210 was less than 10. Albumin 3.0. Her B12 was 1950 on 08/18/17. TSH was also normal on 08/18/17. AST 40, ALT 33. Toxicology screen negative. Urine, no culture indicated. Microbiology: Pending on urine as well as blood. IMAGING STUDIES: Chest x-ray: Lungs are clear. No disease. Left hip: No fracture. CT of the head does show a solitary 1.3 cm lesion, high left parietal with some minimal surrounding edema but no mass effect. Possible metastatic disease, solitary versus atypical meningioma. IMPRESSION: 1. Change in mental status, questionably due to this lesion that has been found, rule out metastatic disease versus meningioma. 2. Possible seizure. RECOMMENDATIONS: Recommend getting an MRI of the brain with and without contrast, CT thorax, abdomen and pelvis has been ordered. I did add an EEG. Will continue to monitor. Will make further recommendations accordingly depending on findings. Danita Hoskins MD DF/GLORIA /10:38 AM /11:28 AM
[2017-08-19 12:39] VITALS: BP 113/72; PULSE 81; RESP 18; TEMP 98.5; O2SAT 93
--- NOTE | 2017-08-19 13:24 | PD.CONS ---
History of Present Illness Service Neurosurgery Consult Requested By Oncology Reason for Consult Brain lesion Primary Care Physician Venice Mixon MD Diagnoses: History of Present Illness 72-year-old female recently admitted to the hospital for dehydration and hypotension. She has not been feeling well since discharge from the hospital and has had word finding difficulty and slurred speech and mild progressive confusion. Due to these problems she was brought back to the emergency room on 08/18/2017. She does have a 1-2 month history of intermittent headaches and sweats without definite fever. She has lost over 30 pounds in the past year but has been on a diet. There is no complaint of weakness or numbness in the extremities. She does state that her walking has been impaired. No seizure activity reported. Review of Systems Constitutional: COMPLAINS OF: Fatigue, Weight loss, Night Sweats, DENIES: Fever Eyes: DENIES: Blurred vision, Diplopia Ears, nose, mouth, throat: DENIES: Hearing loss, Vertigo Respiratory: DENIES: Shortness of breath Cardiovascular: DENIES: Chest pain Gastrointestinal: DENIES: Abdominal pain, Diarrhea, Nausea Genitourinary: DENIES: Urinary incontinence Musculoskeletal: DENIES: Joint pain, Muscle aches Hematologic/lymphatic: DENIES: Bruising Neurologic: COMPLAINS OF: Headache, DENIES: Abnormal gait Psychiatric: COMPLAINS OF: Confusion Past Family Social History Allergies: Coded Allergies: adhesive (Unverified Allergy, Intermediate, Itching, 08/18/17) cephalexin (Unverified Allergy, Mild, 08/18/17) Past Medical History Coronary artery disease Hypertension Dyslipidemia COPD Peripheral vascular disease Lupus Fibromyalgia Arthritis History of hepatitis Past Surgical History Hernia repair Laparoscopic cholecystectomy Cardiac catheter Colonoscopy Reported Medications Reported Meds & Active Scripts Active Reported Probiotic (Saccharomyces Boulardii) Unknown Strength Cap 1 Cap PO DAILY Vitamin D-1000 (Cholecalciferol) 1,000 Unit Tab 1,000 Units PO BID Calcium 600 (Calcium Carbonate) 600 Mg Calcium (1500 Mg) Tab 600 Mg PO BID Biotin 5,000 Mcg Tab.rapdis 5,000 Mcg PO DAILY Aspirin Adult Low Strength (Aspirin) 81 Mg Tabdr 81 Mg PO DAILY Ventolin Hfa 18 GM Inh (Albuterol Sulfate) 90 Mcg/Act Aer 1 Puff INH Q4H PRN Spiriva Handihaler (Tiotropium Inh) 18 Mcg Cap 18 Mcg INH DAILY 1 capsule = 18 mcg Pantoprazole (Pantoprazole Sodium) 40 Mg Tab 40 Mg PO DAILY Lovastatin 40 Mg Tab 40 Mg PO DAILY Mize (Hydrocodone-Acetaminophen) 5 Mg-325 Mg Tab 1 Tab PO Q8HR PRN Formoterol Fumarate Dihydrate 100 % Pow 12 Mcg INH Q12H Lexapro (Escitalopram Oxalate) 5 Mg Tab 5 Mg PO DAILY Klonopin (Clonazepam) 0.5 Mg Tab 0.5 Mg PO TID PRN Cilostazol 100 Mg Tab 100 Mg PO BID Tessalon Perles (Benzonatate) 100 Mg Cap 100 Mg PO TID PRN Family History Colon cancer in her mother Social History She smoked 2 packs of cigarettes a day for approximate 45 years. She stopped smoking nearly 10 years ago. No alcohol use Physical Exam Vital Signs Vital Signs Date Time Temp Pulse Resp B/P (MAP) Pulse Ox O2 Delivery O2 Flow Rate FiO2 08/19/17 12:39 98.5 81 18 113/72 (86) 93 08/19/17 08:00 98.9 89 16 140/66 (90) 91 08/19/17 08:00 81 08/19/17 04:00 98.5 88 17 126/77 (93) 92 08/19/17 00:00 98.4 85 18 122/68 (86) 93 08/18/17 21:48 84 08/18/17 20:41 08/18/17 20:00 98.3 83 19 153/67 (95) 94 08/18/17 18:16 82 17 154/70 (98) 98 Nasal Cannula 2.00 08/18/17 16:15 98 Room Air 08/18/17 16:00 83 15 149/64 (92) 94 Physical Exam GENERAL: This is a somewhat frail-appearing elderly patient, no apparent distress. SKIN: No abrasions, contusion, rash noted. Skin warm and dry. HEAD: Atraumatic. Normocephalic. No temporal or scalp tenderness. EYES: Sclerae are clear and nonicteric ENT: No facial edema or ecchymosis. No periorbital edema. No CSF otorrhea or rhinorrhea. No palpable facial fracture or deformity. NECK: Trachea midline. No cervical spine tenderness. CARDIOVASCULAR: Regular rate and rhythm without murmurs, gallops, or rubs. RESPIRATORY: Clear to auscultation. Breath sounds equal bilaterally. No wheezes , rales, or rhonchi. GASTROINTESTINAL: Abdomen soft, non-tender, nondistended. No hepato-splenomegaly , or palpable masses. No guarding. MUSCULOSKELETAL: Extremities without cyanosis, or edema. No joint tenderness, or edema noted. No calf tenderness. Dorsalis pedis pulses 2+ bilateral NEUROLOGICAL: Mild lethargy [id number] dysarthria and word finding deficit. Recent or remote memory are moderately impaired Diminished judgment and insight Mild to moderate difficulty answering questions and following commands No evidence of anxiety or depression Pupils are equal and reactive to accommodation. Extra-ocular movements, visual truong to confrontation, facial sensorimotor, tongue, palate, sternocleidomastoid testing, hearing to finger rub testing, and bilateral shoulder shrug are all intact. Sensation is intact to light touch in all extremities Strength appears normal major flexion and extension groups all extremities , although somewhat difficult to accurately assess since she does not consistently follow commands well for motor testing. Amor's absent bilaterally No ankle clonus Plantar responses absent bilateral Fine motor movements intact upper extremities Laboratory Laboratory Tests Test 08/18/17 16:20 08/18/17 22:18 08/19/17 04:03 08/19/17 08:17 White Blood Count 7.7 6.2 Red Blood Count 4.27 4.05 Hemoglobin 12.9 12.2 Hematocrit 37.5 36.1 Mean Corpuscular Volume 87.9 89.1 Mean Corpuscular Hemoglobin 30.2 30.1 Mean Corpuscular Hemoglobin Concent 34.4 33.8 Red Cell Distribution Width 13.1 13.8 Platelet Count 277 293 Mean Platelet Volume 7.7 7.8 Neutrophils (%) (Auto) 47.7 42.7 Lymphocytes (%) (Auto) 34.2 38.0 Monocytes (%) (Auto) 11.4 11.8 Eosinophils (%) (Auto) 6.0 6.7 Basophils (%) (Auto) 0.7 0.8 Neutrophils # (Auto) 3.7 2.7 Lymphocytes # (Auto) 2.6 2.4 Monocytes # (Auto) 0.9 0.7 Eosinophils # (Auto) 0.5 0.4 Basophils # (Auto) 0.1 0.1 CBC Comment DIFF FINAL DIFF FINAL Differential Comment Prothrombin Time 11.9 Prothromb Time International Ratio 1.2 Activated Partial Thromboplast Time 31.8 Urine Color YELLOW Urine Turbidity CLEAR Urine pH 5.0 Urine Specific [place] 1.018 Urine Protein NEG Urine Glucose (UA) NEG Urine Ketones 40 Urine Occult Blood NEG Urine Nitrite NEG Urine Bilirubin NEG Urine Urobilinogen 2.0 Urine Leukocyte Esterase NEG Urine RBC 1 Urine WBC 2 Urine Squamous Epithelial Cells <1 Urine Bacteria OCC Urine Hyaline Casts 10 Urine Mucus FEW Microscopic Urinalysis Comment CATH-CULTURE IND Blood Urea Nitrogen 20 15 Creatinine 1.06 0.79 Random Glucose 64 135 57 Total Protein 7.2 6.7 Albumin 3.1 3.0 Calcium Level 10.0 9.3 Alkaline Phosphatase 179 151 Aspartate Amino Transf (AST/SGOT) 51 40 Alanine Aminotransferase (ALT/SGPT) 43 33 Total Bilirubin 0.5 0.5 Sodium Level 133 135 Potassium Level 4.8 4.4 Chloride Level 95 99 Carbon Dioxide Level 29.0 26.7 Anion Gap 9 9 Estimat Glomerular Filtration Rate 51 72 Lactic Acid Level 1.0 Ammonia LESS THAN 10 Troponin I LESS THAN 0.02 LESS THAN 0.02 Vitamin B12 Level 1950 Thyroid Stimulating Hormone 3rd Gen 3.040 Urine Opiates Screen POS Urine Barbiturates Screen NEG Urine Amphetamines Screen NEG Urine Benzodiazepines Screen NEG Urine Cocaine Screen NEG Urine Cannabinoids Screen NEG Ethyl Alcohol Level LESS THAN 3 Date/Time Source Procedure Growth Status 08/18/17 16:20 Blood Peripheral Aerobic Blood Culture - Preliminary NO GROWTH IN 1 DAY Resulted 08/18/17 16:20 Blood Peripheral Anaerobic Blood Culture - Preliminary NO GROWTH IN 1 DAY Resulted 08/18/17 16:20 Urine Catheterized Urine Urine Culture Pending Received Result Diagram: 08/19/17 0817 08/19/17 0817 Imaging 08/19/2017 MRI brain images reviewed by the undersigned. There is a cortical- subcortical left posterior frontal lobe lesion with probable hemorrhagic component with mild surrounding edema and no significant mass effect. Brain MRI 08/19/17 0000 Signed Impressions: Service Date/Time: Saturday, August 19, 2017 11:03 - CONCLUSION: Hemorrhagic enhancing mass identified within the left frontal lobe with minimal adjacent tumefactive edema. These findings are suggestive of a primary brain neoplasm. Given the minimal adjacent edema it metastatic lesion is considered less likely.. Renee Garcia MD Head CT 08/18/17 1609 Signed Impressions: Service Date/Time: Friday, August 18, 2017 17:35 - CONCLUSION: Solitary 1.3 cm lesion velasquez white matter left parietal region with increased density on a thickened rim and isodensity centrally abutting the dura. Could represent an atypical meningioma or solitary metastatic lesion. There is a simply mild localized at surrounding edema with no significant mass effect Stuart Baron MD Chest X-Ray 08/18/17 1609 Signed Impressions: Service Date/Time: Friday, August 18, 2017 16:31 - CONCLUSION: The lungs are clear. Wilfrid Jensen MD Hip and Pelvis X-Ray 08/18/17 0000 Signed Impressions: Service Date/Time: Friday, August 18, 2017 17:26 - CONCLUSION: Unremarkable examination of the left hip. Stuart Baron MD Assessment and Plan Assessment and Plan Impression: 1. Posterior left frontal lobe lesion with probable hemorrhagic component. 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 2. Coronary artery disease 3. Hypertension 4. Peripheral vascular disease 5. Dyslipidemia 6. COPD 7. History lupus 8. History fibromyalgia 9. Arthritis Recommendations: CT scan chest, abdomen, pelvis requested per oncology and results pending. If no other primary lesion is found which is amenable to biopsy, we will need to proceed with resection of the left posterior frontal lesion for tissue specimen and to decrease potential for further hemorrhage. She is on Decadron None chemical DVT prophylaxis pending possible invasive procedure. Chaitanya Grayson MD Aug 19, 2017 13:24
[2017-08-19 14:28] LABS: CARCINOEMBRYONIC ANTIGEN 4.3 NG/ML (0.2-5.0)
[2017-08-19] MEDS: LORazepam 2 MG/ML VIAL IV PUSH PRN ×2 (14:59→23:23)
[2017-08-19 15:06] LABS: CA 19-9 22.1 U/ML (0.0-35.0)
[2017-08-19 15:17] LABS: CA 15-3 22.5 U/ML (0.0-32.4)
[2017-08-19 16:00] VITALS: BP 132/69; PULSE 82; PULSE 90; RESP 16; TEMP 98.9; O2SAT 93
[2017-08-19] MEDS: LEVOFLOXACIN 750 MG PREMIX INJ 150 ML IV SCH (16:00)
--- NOTE | 2017-08-19 17:21 | EKG ---
Date Performed: 08/18/2017 Time Performed: 16:02:19 PTAGE: 72 years EKG: Sinus rhythm BORDERLINE RIGHT AXIS DEVIATION PATTERN CONSISTENT WITH PULMONARY DISEASE ST ELEVATION, CONSIDER INF ERIOR INJURY PREVIOUS TRACING : 08/10/2017 18.52 Since the prior tracing, there has been no significan t change DOCTOR: Conrad Fernandez Interpretating Date/Time 08/19/2017 17:20:24
[2017-08-19 19:48] VITALS: PULSE 88
[2017-08-19] MEDS ORDERED: IOHEXOL 350 MG/ML 10 ML VIAL (for RAD DIAG) IVCONTRAST ONE (20:13)
--- NOTE | 2017-08-19 20:27 | RADRPT ---
EXAM DATE/TIME: 08/19/2017 20:00 This report includes an Addendum and supersedes previous reports for this exam. [facility] COMPARISON: No previous studies available for comparison. INDICATIONS : Brain neoplasm; rule out metastatic disease. IV CONTRAST: 95 cc Omnipaque 350 (iohexol) IV ; Cumulative dose for multiple exams. RADIATION DOSE: 16.55 CTDIvol (mGy) ; Combined studies - Thorax/Abdomen/Pelvis MEDICAL HISTORY : Chronic obstructive pulmonary disease. Cardiovascular disease Lupus.Hepatitis A, hiatal hernia SURGICAL HISTORY : Colon resection. Cholecystectomy.hernia repair ENCOUNTER: Initial ACUITY: 1 day PAIN SCALE: Non-responsive LOCATION: chest TECHNIQUE: Volumetric scanning of the chest was performed. Using automated exposure control and adjustment of t he mA and/or kV according to patient size, radiation dose was kept as low as reasonably achievable to obtain optimal diagnostic quality images. DICOM format image data is available electronically for review and comparison. Follow-up recommendations for detected pulmonary nodules are based at a minimum on nodule size and pa tient risk factors according to Fleischner Society Guidelines. FINDINGS: LUNGS: There is severe emphysema involving the upper lobes. There is a solitary nodular density in the left anterior apex, best seen on image #11, measuring 7 mm. No focal infiltrates. PLEURA: There is no pleural thickening or pleural effusion. MEDIASTINUM: The heart and great vessels demonstrate no acute abnormality. There is no mediastinal or hilar lymph adenopathy. AXILLAE: Within normal limits. No lymphadenopathy. SKELETAL: Within normal limits for patient age. MISCELLANEOUS: Abnormal appearance both adrenal glands, please see concurrently performed CT abdomen/pelvis. CONCLUSION: 1. 6 mm nodule left apex. 2. Severe upper lobe emphysema. Wilfrid Jensen MD on August 19, 2017 at 20:22 Board Certified Radiologist. This report was verified electronically. ADDENDUM: Not mentioned above is a lobular margined noncalcified opacity in the lateral right breast measuring 4.1 x 2.2 cm. If the patient has not had a recent mammogram, may consider such. Wilfrid Jensen MD on August 19, 2017 at 20:29 Board Certified Radiologist. This report was verified electronically.
--- NOTE | 2017-08-19 20:31 | RADRPT ---
EXAM DATE/TIME: 08/19/2017 20:00 [facility] COMPARISON: CT THORAX W CONTRAST, August 19, 2017, 20:00. CT ABDOMEN & PELVIS W CONTRAST, August 03, 2014, 3: 07. INDICATIONS : Brain neoplasm; possible metastatic disease. IV CONTRAST: 95 cc Omnipaque 350 (iohexol) IV ; Cumulative dose for multiple exams. ORAL CONTRAST: No oral contrast ingested. RADIATION DOSE: 16.55 CTDIvol (mGy) ; Combined studies - Thorax/Abdomen/Pelvis MEDICAL HISTORY : Chronic obstructive pulmonary disease. Cardiovascular disease Lupus. SURGICAL HISTORY : Colon resection. Cholecystectomy.hernia repair ENCOUNTER: Initial ACUITY: 1 day PAIN SCALE: Non-responsive LOCATION: abdomen TECHNIQUE: Volumetric scanning of the abdomen and pelvis was performed. Using automated exposure control and ad justment of the mA and/or kV according to patient size, radiation dose was kept as low as reasonably achievable to obtain optimal diagnostic quality images. DICOM format image data is available electro nically for review and comparison. FINDINGS: LIVER: Homogeneous density without lesion. There is no dilation of the biliary tree. SPLEEN: Normal size without lesion. PANCREAS: Within normal limits. KIDNEYS: Normal in size and shape. There is no mass, stone or hydronephrosis. ADRENAL GLANDS: Abnormal appearance to both adrenal glands with inhomogeneous enhancing bilateral large masses, measu ring 6.0 x 3.9 cm on the right side and 2.4 x 4.5 cm and the left side. VASCULAR: There is no aortic aneurysm. BOWEL/MESENTERY: No dilated loops of small and large bowel. ABDOMINAL WALL: Prior ventral hernia repair with mesh and corkscrew anchors. RETROPERITONEUM: There is no lymphadenopathy. BLADDER: No wall thickening or mass. REPRODUCTIVE: Within normal limits. INGUINAL: There is no lymphadenopathy or hernia. MUSCULOSKELETAL: Within normal limits for patient age. CONCLUSION: Abnormal appearance to both adrenal glands with large bilateral masses measuring up to 6 cm, suspicio us for malignancy. Wilfrid Jensen MD on August 19, 2017 at 20:24 Board Certified Radiologist. This report was verified electronically.
[2017-08-19] MEDS: DEXAMETHASONE SOD PHOS 4 MG/ML VIAL IV PUSH SCH (20:58)
[2017-08-19] MEDS: SODIUM CHLORIDE 0.9% FLUSH 10 ML FLUSH IV FLUSH SCH (21:00)
[2017-08-19] MEDS: CALCIUM CARBONATE 1.25 GM (CA 500 MG) TAB PO SCH (21:00)
[2017-08-19] MEDS: DOCUSATE SODIUM 50 MG/SENNA 8.6 MG TAB PO SCH (21:00)
[2017-08-19] MEDS: CILOSTAZOL 100 MG TAB PO SCH (21:00)
[2017-08-20] VITALS (12 sets, daily range): BP systolic 115–188; BP diastolic 70–94; PULSE 77–102; RESP 16–25; TEMP 97–98.2; O2SAT 91–95
[2017-08-20] MEDS: ENALAPRILAT 1.25 MG/ML VIAL IV PUSH PRN ×2 (01:16→08:28)
[2017-08-20] MEDS ORDERED: LABETALOL HCL 100 MG/20 ML VIAL IV PUSH PRN (03:00)
[2017-08-20] MEDS: SODIUM CHLOR 0.9% 1000 ML INJ 1,000 ML IV SCH ×2 (05:15→15:00)
[2017-08-20] MEDS: DEXAMETHASONE SOD PHOS 4 MG/ML VIAL IV PUSH SCH ×3 (05:20→23:40)
[2017-08-20] MEDS: TIOTROPIUM BROMIDE 18 MCG INH INH SCH (08:27)
[2017-08-20] MEDS: SODIUM CHLORIDE 0.9% FLUSH 10 ML FLUSH IV FLUSH SCH (08:28)
[2017-08-20] MEDS: PANTOPRAZOLE SODIUM 40 MG VIAL IV PUSH SCH (08:29)
--- NOTE | 2017-08-20 08:50 | HHI.NSPN ---
History Interval History 72-year-old female recently admitted to the hospital for dehydration and hypotension. She has not been feeling well since discharge from the hospital and has had word finding difficulty and slurred speech and mild progressive confusion. Due to these problems she was brought back to the emergency room on 08/18/2017. She does have a 1-2 month history of intermittent headaches and sweats without definite fever. She has lost over 30 pounds in the past year but has been on a diet. There is no complaint of weakness or numbness in the extremities. She does state that her walking has been impaired. No seizure activity reported. Exam Results Vital Signs Date Time Temp Pulse Resp B/P (MAP) Pulse Ox O2 Delivery O2 Flow Rate FiO2 08/20/17 08:21 97.6 90 16 182/75 (110) 91 08/18/17 18:16 Nasal Cannula 2.00 Intake and Output 08/20/17 08/20/17 08/21/17 08:00 16:00 00:00 Intake Total 1052 ml Output Total 350 ml Balance 702 ml Physical Examination General: Somewhat frail elderly lady in no apparent distress. Respirations: Clear and regular Cardiac: Heart rate regular Abdomen: Soft nontender Extremities: No significant edema. Posterior tibial pulses 2+ bilateral Skin: Skin lesion or rash Neurologic: Mild lethargy. She arouses readily to voice Her voice is soft, very hesitant with significant swelling O speech and thought processes She is somewhat tremulous with both her voice as well as in the extremities. She knows that she is in the hospital. She can tell me her and 's name and her address. She does not know the month or year. She follows up approximately 50% of simple commands. Significant loss of recent and remote memory. Extraocular movements are intact She consistently gives the incorrect response when asked to count fingers in all visual truong bilateral. Facial motor testing as well as tongue and palate testing somewhat difficult due to decreased cooperation but no definite focal deficit. Sensation appears intact light touch all extremities She moves all extremities with 3-/5 motor strength symmetric Amor's absent bilateral No ankle clonus Lab, Micro, Other Results Last Impressions Abdomen/Pelvis CT 08/19/17 1930 Signed Impressions: Service Date/Time: Saturday, August 19, 2017 20:00 - CONCLUSION: Abnormal appearance to both adrenal glands with large bilateral masses measuring up to 6 cm, suspicious for malignancy. Wilfrid Jensen MD Chest CT 08/19/17 0000 Signed Impressions: Service Date/Time: Saturday, August 19, 2017 20:00 - CONCLUSION: 1. 6 mm nodule left apex. 2. Severe upper lobe emphysema. Wilfrid Jensen MD ADDENDUM: Not mentioned above is a lobular margined noncalcified opacity in the lateral right breast measuring 4.1 x 2.2 cm. If the patient has not had a recent mammogram, may consider such. Wilfrid Jensen MD Brain MRI 08/19/17 0000 Signed Impressions: Service Date/Time: Saturday, August 19, 2017 11:03 - CONCLUSION: Hemorrhagic enhancing mass identified within the left frontal lobe with minimal adjacent tumefactive edema. These findings are suggestive of a primary brain neoplasm. Given the minimal adjacent edema it metastatic lesion is considered less likely.. Renee Garcia MD Head CT 08/18/17 1609 Signed Impressions: Service Date/Time: Friday, August 18, 2017 17:35 - CONCLUSION: Solitary 1.3 cm lesion velasquez white matter left parietal region with increased density on a thickened rim and isodensity centrally abutting the dura. Could represent an atypical meningioma or solitary metastatic lesion. There is a simply mild localized at surrounding edema with no significant mass effect Stuart Baron MD Chest X-Ray 08/18/17 1609 Signed Impressions: Service Date/Time: Friday, August 18, 2017 16:31 - CONCLUSION: The lungs are clear. Wilfrid Jensen MD Hip and Pelvis X-Ray 08/18/17 0000 Signed Impressions: Service Date/Time: Friday, August 18, 2017 17:26 - CONCLUSION: Unremarkable examination of the left hip. Stuart Baron MD Laboratory Tests Test 08/19/17 13:30 Tumor Marker Alpha Fetoprotein 1.7 NG/ML Carcinoembryonic Antigen 4.3 NG/ML CA 15-3 Antigen 22.5 U/ML CA 19-9 Antigen 22.1 U/ML CA 125 Antigen 40.0 U/ML Medical Decision Making Impression and Plan Impression: 1. Left posterior frontal cortical lesion. Probable metastatic disease 2. CT chest, abdomen, pelvis results reviewed. Bilateral adrenal mass, 14 mm left lung apical nodule, right breast opacity. Plan: EEG performed this morning with results pending. We will wait for further input from oncology regarding biopsy of lesions noted on CT chest abdomen and pelvis versus proceeding with excisional biopsy of left frontal lesion. The left frontal lesion is directly cortical and then be resected through a relatively small craniotomy with stereotactic guidance if needed. She appears quite frail significant speech memory and cognitive deficits which may increase the risk of anesthesia or surgical intervention. Chaitanya Grayson MD Aug 20, 2017 08:50
[2017-08-20 09:23] LABS: AUTOMATED NEUTROPHIL # 5.2 TH/MM3 (1.8-7.7); BASOPHIL % 0.2 % (0.0-2.0); HEMATOCRIT 38.5 % (35.0-46.0); LYMPH % 11.1 % (9.0-44.0); LYMPHOCYTE # 0.7 TH/MM3 (1.0-4.8); MEAN CELL VOLUME 89.6 FL (80.0-100.0); MEAN CORPUSCULAR HEMOGLOBIN 30.3 PG (27.0-34.0); MEAN CORPUSCULAR HGB CONC 33.8 % (32.0-36.0); MEAN PLATELET VOLUME 7.9 FL (7.0-11.0); MONOCYTE # 0.1 TH/MM3 (0-0.9); NEUT % 86.7 % (16.0-70.0); PLATELET COUNT 330 TH/MM3 (150-450); RED CELL DISTRIBUTION WIDTH 13.4 % (11.6-17.2)
[2017-08-20 09:45] LABS: ALBUMIN 3.2 GM/DL (3.4-5.0); AST (GOT) 23 U/L (15-37); BICARBONATE 23.3 MEQ/L (21.0-32.0); BLOOD UREA NITROGEN 18 MG/DL (7-18); CALCIUM 9.7 MG/DL (8.5-10.1); CHLORIDE 100 MEQ/L (98-107); CREATININE 0.86 MG/DL (0.50-1.00); GLOMERULAR FILTRATION RATE 65 ML/MIN (>89); GLUCOSE,RANDOM 111 MG/DL (74-106); SODIUM (NA) 135 MEQ/L (136-145)
[2017-08-20 09:49] LABS: ALKALINE PHOSPHATASE 138 U/L (45-117); ALT (GPT) 31 U/L (10-53); TOTAL BILIRUBIN ADULT 0.4 MG/DL (0.2-1.0); TOTAL PROTEIN 7.6 GM/DL (6.4-8.2)
--- NOTE | 2017-08-20 11:38 | HHI.FPPN ---
Subjective Remarks Patient seen and examined this morning by medical team with at the bedside. No acute events overnight per report. Patient still unable to communicate with medical team during interview, however does follow brief commands during examination. Medical team that per discussion with patient's recent imaging and planned adrenal nodule biopsy. We also discussed her mammogram history which she is unaware of due to the findings on her chest CT. He states that he feels overall improved since admission, however is worried about the underlying diagnosis and if she is able to speak again. The patient is unable to complete full review of systems but does indicate no when asked if anything is wrong with her currently. Objective Vitals Vital Signs Date Time Temp Pulse Resp B/P (MAP) Pulse Ox O2 Delivery O2 Flow Rate FiO2 08/20/17 10:00 92 08/20/17 08:21 97.6 90 16 182/75 (110) 91 08/20/17 04:00 98.2 83 25 115/70 (85) 91 08/20/17 03:55 77 18 142/72 (95) 92 08/20/17 02:35 178/72 (107) 08/20/17 00:45 180/78 (112) 08/20/17 00:00 97.7 90 17 180/78 (112) 92 08/19/17 19:48 88 08/19/17 16:00 90 08/19/17 16:00 98.9 82 16 132/69 (90) 93 08/19/17 12:39 98.5 81 18 113/72 (86) 93 I/O 08/19/17 08/19/17 08/19/17 08/20/17 08/20/17 08/20/17 07:00 15:00 23:00 07:00 15:00 23:00 Intake Total 0 ml 1052 ml Output Total 0 ml 350 ml Balance 0 ml 702 ml Intake Oral 0 ml 0 ml IV Total 1052 ml Output Urine Total 0 ml 350 ml # Voids 0 2 Result Diagram: 08/20/1781808/20/17818 Objective Remarks GENERAL: Elderly female lying in bed in NAD. currently at the bedside. HEENT: AT, NC with EOMI. No rhinorrhea. MMM. No visible LAD or JVD appreciated. RESPIRATORY: CTAB with no CRW. No increased WOB. CARDIOVASCULAR: RRR, no m/r/g. Radial and DP pulses 2+ and symmetric bilaterally. Brisk capillary refill. ABDOMEN: Soft, nontender, nondistended with +BS. No hepatosplenomegaly. EXTREMITIES: No remarkable dependent edema or varicosities. No cyanosis or erythema. MUSCULOSKELETAL: No calf tenderness. SKIN: Essentially clear with no significant rash or lesions. Adequate skin turgor. NEUROLOGICAL: Speech- Word finding with mild dysarthria. Poor focus, attention, and comprehension. Cranial nerves- 2 through 12 grossly intact. Patient moving all 4 extremities spontaneously, however unable to report sensation or complete strength/range of motion testing. Patient able to follow, but cannot complete two-step instructions. Breast Exam: With myself and nurse Raj Gonzalez present, Dr. Fitzgerald completed BL breast exam. Bilateral breasts visually inspected with no abnormalities appreciated. The BL breasts were then examined using mild, moderate, and deep palpation with no masses or other abnormalities appreciated. Negative discharge upon expression. Patient nontender to palpation. Bilateral axilla palpated without abnormality appreciated. A/P Assessment and Plan Mrs. Neves is a 72 y/o F presenting with AMS found to have a new L parietal brain mass. Discharge Planning Pending clinical course Problem List: (1) Brain mass ICD Codes: G93.9 - Disorder of brain, unspecified Status: Acute Plan: Primary brain mass versus metastatic lesion versus meningioma Consultation to hematology/oncology with Dr. Jarrett -appreciate recommendations -Tumor markers pending -MRI of the brain shows hemorrhagic enhancing mass identified within the left frontal lobe with minimal adjacent tumefactive edema. Findings suggestive of primary brain neoplasm. -CT chest shows 1.6 mm nodule of the left apex with upper lobe emphysema. Noncalcified opacity in the lateral right breast measuring 4.1 x 2.2 cm -CT abdomen pelvis shows both adrenal glands with large bilateral masses measuring up to 6 cm, suspicious for malignancy. Decadron IV 10 mg 1 -Continue Decadron 4 mg IV every 8 hours -Lovenox held as brain mass appears hemorrhagic Neurology consult placed as patient is known to Dr. Lancaster\ -EEG completed, results pending Neurosurgery consulted -Await further workup (2) Adrenal mass ICD Codes: E27.9 - Disorder of adrenal gland, unspecified Status: Acute Plan: -CT abdomen and pelvis as above -Patient scheduled for adrenal biopsy later this afternoon (3) Breast mass, right ICD Codes: N63.10 - Unspecified lump in the right breast, unspecified quadrant Status: Acute Plan: -CT chest as above -Exam within normal limits -Medical team to request most recent mammogram for further information (4) Altered mental status ICD Codes: R41.82 - Altered mental status, unspecified Status: Acute Plan: Patient presenting with altered mental status likely secondary to brain mass and edema -Electrolytes relatively benign -UDS: Positive opiates, otherwise negative -Alcohol less than 3 -Ammonia less than 10 -TSH 3.04 -Troponin less than 0.02, repeat x1 -Vitamin B12 1950 -Lactic acid 1.0 (5) JACKY (acute kidney injury) ICD Codes: N17.9 - Acute kidney failure, unspecified Status: Acute Plan: Stage 1 JACKY likely secondary to dehydration on arrival -Status post IV hydration with normalization of renal function and creatinine of 0.79 -Urinalysis with 40 ketones and occasional bacteria -Given suprapubic tenderness with bacteriuria, we will treat for possible UTI with Levaquin -Normal saline IV hydration at 110 mL/hour -Continue to monitor (6) Urinary tract infection ICD Codes: N39.0 - Urinary tract infection, site not specified Plan: UA with ketones and bacteriuria UC with lactobacillus Tenderness to palpation in suprapubic region Started on Levaquin 08/19/17 Started fluconazole 08/20/17 (7) Anxiety with depression ICD Codes: F41.8 - Other specified anxiety disorders Status: Chronic Plan: Patient is n.p.o. -Hold home citalopram -Hold home clonazepam (8) PVD (peripheral vascular disease) ICD Codes: I73.9 - Peripheral vascular disease, unspecified Status: Chronic Plan: -Hold home cilostazol (9) Hyperlipidemia ICD Codes: E78.5 - Hyperlipidemia, unspecified Status: Chronic Plan: Patient is currently n.p.o. -will cover with as needed antihypertensives -Hold home lovastatin -Continue home aspirin (10) COPD (chronic obstructive pulmonary disease) ICD Codes: J44.9 - Chronic obstructive pulmonary disease, unspecified Status: Chronic Plan: -Continue home Spiriva -Continue home Ventolin -Continue home fometerol -Continue home Tessalon Perles (11) Nutrition, metabolism, and development symptoms ICD Codes: R63.8 - Other symptoms and signs concerning food and fluid intake Status: Acute Plan: -Fluids: Normal saline at 100 mL/h (maintenance fluids) -Diet: Nothing by mouth, speech therapy swallow evaluation ordered; hypoglycemia protocol in placed -Electrolytes: Monitor and replete as needed (12) No contraindication to deep vein thrombosis (DVT) prophylaxis ICD Codes: Z78.9 - Other specified health status Status: Acute Plan: -Lovenox 40 mg daily -SCDs Problem Qualifiers (1) Altered mental status: Qualified Codes: R41.0 - Disorientation, unspecified (2) Urinary tract infection: Qualified Codes: N30.00 - Acute cystitis without hematuria Mannie Mclaughlin MD R2 Aug 20, 2017 11:38
[2017-08-20] MEDS: LEVOFLOXACIN 750 MG PREMIX INJ 150 ML IV SCH (12:09)
--- NOTE | 2017-08-20 13:29 | PD.ONC.PN ---
Subjective Subjective Remarks Afebrile overnight. patient resting in bed with at bedside. Per patient much more alert today. Patient states to me "ready to go home." Objective Data Date Time Temp Pulse Resp B/P (MAP) Pulse Ox O2 Delivery O2 Flow Rate FiO2 08/20/17 12:17 97.4 94 17 149/73 (98) 93 08/20/17 10:00 92 08/20/17 08:21 97.6 90 16 182/75 (110) 91 08/20/17 04:00 98.2 83 25 115/70 (85) 91 08/20/17 03:55 77 18 142/72 (95) 92 08/20/17 02:35 178/72 (107) 08/20/17 00:45 180/78 (112) 08/20/17 00:00 97.7 90 17 180/78 (112) 92 08/19/17 19:48 88 08/19/17 16:00 90 08/19/17 16:00 98.9 82 16 132/69 (90) 93 08/20/17 08/20/17 08/20/17 07:00 15:00 23:00 Intake Total 1052 ml Output Total 350 ml Balance 702 ml Result Diagram: 08/20/1781808/20/17818 Laboratory Results Laboratory Tests Test 08/19/17 13:30 08/20/17 08:19 Tumor Marker Alpha Fetoprotein 1.7 NG/ML Carcinoembryonic Antigen 4.3 NG/ML CA 15-3 Antigen 22.5 U/ML CA 19-9 Antigen 22.1 U/ML CA 125 Antigen 40.0 U/ML White Blood Count 6.0 TH/MM3 Red Blood Count 4.30 MIL/MM3 Hemoglobin 13.0 GM/DL Hematocrit 38.5 % Mean Corpuscular Volume 89.6 FL Mean Corpuscular Hemoglobin 30.3 PG Mean Corpuscular Hemoglobin Concent 33.8 % Red Cell Distribution Width 13.4 % Platelet Count 330 TH/MM3 Mean Platelet Volume 7.9 FL Neutrophils (%) (Auto) 86.7 % Lymphocytes (%) (Auto) 11.1 % Monocytes (%) (Auto) 2.0 % Eosinophils (%) (Auto) 0.0 % Basophils (%) (Auto) 0.2 % Neutrophils # (Auto) 5.2 TH/MM3 Lymphocytes # (Auto) 0.7 TH/MM3 Monocytes # (Auto) 0.1 TH/MM3 Eosinophils # (Auto) 0.0 TH/MM3 Basophils # (Auto) 0.0 TH/MM3 CBC Comment DIFF FINAL Differential Comment Blood Urea Nitrogen 18 MG/DL Creatinine 0.86 MG/DL Random Glucose 111 MG/DL Total Protein 7.6 GM/DL Albumin 3.2 GM/DL Calcium Level 9.7 MG/DL Alkaline Phosphatase 138 U/L Aspartate Amino Transf (AST/SGOT) 23 U/L Alanine Aminotransferase (ALT/SGPT) 31 U/L Total Bilirubin 0.4 MG/DL Sodium Level 135 MEQ/L Potassium Level 4.6 MEQ/L Chloride Level 100 MEQ/L Carbon Dioxide Level 23.3 MEQ/L Anion Gap 12 MEQ/L Estimat Glomerular Filtration Rate 65 ML/MIN Culture Results Microbiology Date/Time Source Procedure Growth Status 08/18/17 16:20 Blood Peripheral Aerobic Blood Culture - Preliminary NO GROWTH IN 2 DAYS Resulted 08/18/17 16:20 Blood Peripheral Anaerobic Blood Culture - Preliminary NO GROWTH IN 2 DAYS Resulted 08/18/17 16:15 Blood Peripheral Aerobic Blood Culture - Preliminary NO GROWTH IN 2 DAYS Resulted 08/18/17 16:15 Anaerobic Blood Culture - Preliminary Staphylococcus Epidermidis Resulted 08/18/17 16:20 Urine Catheterized Urine Urine Culture - Final Lactobacillus Species Complete Imaging Studies Last 24 hours Impressions Abdomen/Pelvis CT 08/19/17 1930 Signed Impressions: Service Date/Time: Saturday, August 19, 2017 20:00 - CONCLUSION: Abnormal appearance to both adrenal glands with large bilateral masses measuring up to 6 cm, suspicious for malignancy. Wilfrid Jensen MD Administered Medications Medications (Trade) Dose Ordered Sig/Chichi Route PRN Reason Start Time Stop Time Status Last Admin Dose Admin Sodium Chloride (NS Flush) 2 ml BID IV FLUSH 08/18/17 21:00 08/18/17 22:05 Enoxaparin Sodium (Lovenox Inj) 40 mg Q24H SQ 08/19/17 09:00 Future Hold 08/19/17 09:00 Tiotropium [place] (Spiriva Inh) 18 mcg DAILY INH 08/19/17 09:00 08/20/17 08:27 Dextrose (D50w (Vial) Inj) 50 ml UNSCH PRN IV PUSH HYPOGLYCEMIA-SEE COMMENTS 08/19/17 03:00 2/11/18 03:16 Sodium Chloride 1,000 ml @ 100 mls/hr Q10H IV 08/19/17 09:00 08/20/17 05:15 Dexamethasone Sodium Phosphate (Decadron Inj) 4 mg Q8HR IV PUSH 08/19/17 18:00 08/20/17 05:20 Levofloxacin/ Dextrose 150 ml @ 100 mls/hr Q24H IV 08/19/17 11:00 08/20/17 12:09 Pantoprazole Sodium (Protonix Inj) 40 mg Q24H IV PUSH 08/19/17 10:15 08/20/17 08:29 Lorazepam (Ativan Inj) 0.5 mg Q4H PRN IV PUSH AGITATION AND/OR HALLUCINATION 08/19/17 13:15 08/19/17 23:23 Enalaprilat (Vasotec Inj) 1.25 mg Q6H PRN IV PUSH SEE LABEL COMMENTS 08/20/17 01:15 08/20/17 08:28 Labetalol HCl (Trandate Inj) 10 mg Q6H PRN IV PUSH SEE LABEL COMMENTS 08/20/17 03:00 08/20/17 03:25 Objective Remarks GENERAL: somewhat disheveled, elderly female, lying supine in bed resting. SKIN: Warm and dry. HEAD: Normocephalic. EYES: No injection or drainage. NECK: Supple, trachea midline. BREAST: no skin changes. no nipple discharge. no masses palpated. left breast with some fibrous breast tissue palpated . no axillary or supraclavicular adenopathy palpated. CARDIOVASCULAR: Regular rate and rhythm RESPIRATORY: Breath sounds equal bilaterally. No accessory muscle use. GASTROINTESTINAL: Abdomen soft, non-tender, nondistended. EXTREMITIES: No cyanosis NEUROLOGICAL: awake. following commands, answering some questions. Assessment/Plan Problem List: (1) Brain mass ICD Codes: G93.9 - Disorder of brain, unspecified Status: Acute Plan: --started slurring her speech and had expressive aphasia about a week ago. + shuffling unsteady gait. --headache X 1 month not relieved with Tylenol. --CT head showed a solitary 1.3 cm mass in the left parietal region with increased edema. --CT ab/pelvis showed bilateral adrenal masses. --NS following. Assessment 72y/o female admitted with AMS, found to have mass, left parietal lobe and bilateral adrenal masses. h/o Chronic obstructive pulmonary disease. Fibromyalgia. Lupus. Coronary artery disease. Hyperlipidemia. Gastroesophageal reflux disease (GERD) . Hypertension. Remote history of hepatitis A and B. Herniated disc with chronic back pain. Osteoarthritis. Cataracts. Peripheral vascular disease. Plan 1. consult invasive radiology for biopsy of adrenal mass 2. monitor mental status 3. continue Decadron. Attending Statement The exam, history, and the medical decision-making described in the above note were completed with the assistance of the mid-level provider. I reviewed and agree with the findings presented. I attest that I had a [id number] encounter with the patient on the same day, and personally performed and documented my assessment and findings in the medical record. More alert but difficulty with words. CT chest showed 6mm non specific nodule left lung. CT abd/pelvis + bilateral adrenal masses. Consult radiology to consider biopsy of adrenal mass. Miriam Lewis Aug 20, 2017 13:29 Manjeet Jarrett MD Aug 20, 2017 16:16
[2017-08-20] MEDS: LORazepam 2 MG/ML VIAL IV PUSH PRN (13:44)
[2017-08-20] MEDS: FLUCONAZOLE 200 MG PREMIX BAG 100 ML IV SCH (17:38)
[2017-08-20] MEDS: CHOLECALCIFEROL (VIT D3) 1000 UNIT TAB PO SCH (23:40)
[2017-08-20] MEDS: CALCIUM CARBONATE 1.25 GM (CA 500 MG) TAB PO SCH (23:40)
[2017-08-20] MEDS: DOCUSATE SODIUM 50 MG/SENNA 8.6 MG TAB PO SCH (23:40)
[2017-08-20] MEDS: CILOSTAZOL 100 MG TAB PO SCH (23:40)
[2017-08-21] VITALS (12 sets, daily range): BP systolic 129–169; BP diastolic 60–77; PULSE 84–103; RESP 17–20; TEMP 97.2–99.1; O2SAT 96–99
[2017-08-21] MEDS: LORazepam 2 MG/ML VIAL IV PUSH PRN (00:23)
[2017-08-21] MEDS: SODIUM CHLORIDE 0.9% FLUSH 10 ML FLUSH IV FLUSH SCH ×3 (00:24→22:15)
[2017-08-21] MEDS: SODIUM CHLOR 0.9% 1000 ML INJ 1,000 ML IV SCH ×3 (00:38→22:15)
[2017-08-21] MEDS: DEXAMETHASONE SOD PHOS 4 MG/ML VIAL IV PUSH SCH ×3 (06:35→22:15)
[2017-08-21 08:14] LABS: HEMATOCRIT 35.5 % (35.0-46.0); HEMOGLOBIN 12.1 GM/DL (11.6-15.3); MEAN CELL VOLUME 88.8 FL (80.0-100.0); MEAN CORPUSCULAR HEMOGLOBIN 30.2 PG (27.0-34.0); MEAN PLATELET VOLUME 7.7 FL (7.0-11.0); PLATELET COUNT 328 TH/MM3 (150-450); RED CELL DISTRIBUTION WIDTH 13.9 % (11.6-17.2); WHITE BLOOD COUNT 11.3 TH/MM3 (4.0-11.0)
[2017-08-21 08:31] LABS: BICARBONATE 25.3 MEQ/L (21.0-32.0); CALCIUM 9.3 MG/DL (8.5-10.1); CREATININE 0.83 MG/DL (0.50-1.00)
--- NOTE | 2017-08-21 08:50 | HHI.FPPN ---
Subjective Remarks No acute events overnight. Pt asleep in bed. Currently on 2L O2 NC. at bedside. Patient is NPO, going for adrenal biopsy this morning. Abdomen firm and tenderness to palpation. She has not had a BM since admission. does not know when the last time she had a BM. Nurse also reports that patient had a tough time swallowing pureed foods. Will get speech to reevaluate again. (Shasta Allen MD R1) Objective Vitals Vital Signs Date Time Temp Pulse Resp B/P (MAP) Pulse Ox O2 Delivery O2 Flow Rate FiO2 08/21/17 08:43 96 21 08/21/17 05:31 99.1 97 19 169/72 (104) 97 08/21/17 04:13 86 08/21/17 00:21 97.7 97 18 142/77 (98) 97 08/21/17 00:02 88 08/20/17 21:11 97.0 100 20 134/81 (98) 95 08/20/17 20:15 100 08/20/17 17:38 141/94 (110) 08/20/17 16:49 97.7 102 17 188/85 (119) 92 08/20/17 12:17 97.4 94 17 149/73 (98) 93 08/20/17 10:00 92 I/O 08/20/17 08/20/17 08/20/17 08/21/17 08/21/17 08/21/17 07:00 15:00 23:00 07:00 15:00 23:00 Intake Total 1052 ml Output Total 350 ml Balance 702 ml Intake Oral 0 ml IV Total 1052 ml Output Urine Total 350 ml # Voids 2 1 1 1 (Shasta Allen MD R1) Result Diagram: 08/21/17 0655 08/21/17 0655 Objective Remarks GENERAL: Elderly female lying in bed in NAD. currently at the bedside. HEENT: AT, NC with EOMI. No rhinorrhea. MMM. No visible LAD or JVD appreciated. RESPIRATORY: CTAB with no CRW. No increased WOB. CARDIOVASCULAR: RRR, no m/r/g. Radial and DP pulses 2+ and symmetric bilaterally. Brisk capillary refill. ABDOMEN: Soft, nontender, nondistended with +BS. No hepatosplenomegaly. EXTREMITIES: No remarkable dependent edema or varicosities. No cyanosis or erythema. MUSCULOSKELETAL: No calf tenderness. SKIN: Essentially clear with no significant rash or lesions. Adequate skin turgor. NEUROLOGICAL: Speech- Word finding with mild dysarthria. Poor focus, attention, and comprehension. Cranial nerves- 2 through 12 grossly intact. Patient moving all 4 extremities spontaneously, however unable to report sensation or complete strength/range of motion testing. Patient able to follow, but cannot complete two-step instructions. Breast Exam 08/20 With myself and nurse Raj Gonzalez present, Dr. Fitzgerald completed BL breast exam. Bilateral breasts visually inspected with no abnormalities appreciated. The BL breasts were then examined using mild, moderate, and deep palpation with no masses or other abnormalities appreciated. Negative discharge upon expression. Patient nontender to palpation. Bilateral axilla palpated without abnormality appreciated. (Shasta Allen MD R1) A/P Assessment and Plan Mrs. Neves is a 72 y/o F presenting with AMS found to have a new L parietal brain mass. Discharge Planning Pending clinical course (Shasta Allen MD R1) Attending Attestation Pt. examined and case reviewed with resident physician I have read the above note and agree with the assessment/plan as discussed with me I was involved in all medical decision making for this patient Rene Berman MD (Rene Berman MD) Problem List: (1) Brain mass ICD Codes: G93.9 - Disorder of brain, unspecified Status: Acute Plan: Primary brain mass versus metastatic lesion versus meningioma Consultation to hematology/oncology with Dr. Jarrett -appreciate recommendations -Tumor markers: CA 125 elevated at 40 -MRI of the brain shows hemorrhagic enhancing mass identified within the left frontal lobe with minimal adjacent tumefactive edema. Findings suggestive of primary brain neoplasm. -CT chest shows 1.6 mm nodule of the left apex with upper lobe emphysema. Noncalcified opacity in the lateral right breast measuring 4.1 x 2.2 cm -CT abdomen pelvis shows both adrenal glands with large bilateral masses measuring up to 6 cm, suspicious for malignancy. -CT guided biopsy of adrenal glands postponed due to cilostazol, will hold cilostazol for procedure tomorrow Decadron IV 10 mg 1 -Continue Decadron 4 mg IV every 8 hours -Lovenox held as brain mass appears hemorrhagic Neurology consult placed as patient is known to Dr. Lancaster -EEG completed, results pending Neurosurgery consulted -will wait for further input from oncology regarding biopsy of lesions noted on CT chest abdomen and pelvis versus proceeding with excisional biopsy of left frontal lesion. The left frontal lesion is directly cortical and then be resected through a relatively small craniotomy with stereotactic guidance if needed. She appears quite frail significant speech memory and cognitive deficits which may increase the risk of anesthesia or surgical intervention. (2) Adrenal mass ICD Codes: E27.9 - Disorder of adrenal gland, unspecified Status: Acute Plan: -CT abdomen and pelvis as above -Patient scheduled for adrenal biopsy tomorrow, hold cilostazol (3) Breast mass, right ICD Codes: N63.10 - Unspecified lump in the right breast, unspecified quadrant Status: Acute Plan: -CT chest as above -Exam within normal limits -Obtained mammogram results from Dr. Cordova's office, patient's last mammogram was January 2017, negative (4) Altered mental status ICD Codes: R41.82 - Altered mental status, unspecified Status: Acute Plan: Patient presenting with altered mental status likely secondary to brain mass and edema -Electrolytes relatively benign -UDS: Positive opiates, otherwise negative -Alcohol less than 3 -Ammonia less than 10 -TSH 3.04 -Troponin less than 0.02, repeat x1 -Vitamin B12 1950 -Lactic acid 1.0 (5) JACKY (acute kidney injury) ICD Codes: N17.9 - Acute kidney failure, unspecified Status: Acute Plan: Stage 1 JACKY likely secondary to dehydration on arrival -Status post IV hydration with normalization of renal function and creatinine of 0.79 -Urinalysis with 40 ketones and occasional bacteria -Given suprapubic tenderness with bacteriuria, we will treat for possible UTI with Levaquin -Urine culture also positive for lactobacillus, started Diflucan 08/20 -Normal saline IV hydration at 110 mL/hour -Continue to monitor (6) Urinary tract infection ICD Codes: N39.0 - Urinary tract infection, site not specified Plan: UA with ketones and bacteriuria UC with lactobacillus Tenderness to palpation in suprapubic region Started on Levaquin 08/19/17 Started fluconazole 08/20/17 (7) Anxiety with depression ICD Codes: F41.8 - Other specified anxiety disorders Status: Chronic Plan: Patient is n.p.o. -Hold home citalopram -Hold home clonazepam (8) PVD (peripheral vascular disease) ICD Codes: I73.9 - Peripheral vascular disease, unspecified Status: Chronic Plan: -Hold home cilostazol (9) Hyperlipidemia ICD Codes: E78.5 - Hyperlipidemia, unspecified Status: Chronic Plan: Patient is currently n.p.o. -will cover with as needed antihypertensives -Hold home lovastatin -Continue home aspirin (10) COPD (chronic obstructive pulmonary disease) ICD Codes: J44.9 - Chronic obstructive pulmonary disease, unspecified Status: Chronic Plan: -Continue home Spiriva -Continue home Ventolin -Continue home fometerol -Continue home Tessalon Perles (11) Nutrition, metabolism, and development symptoms ICD Codes: R63.8 - Other symptoms and signs concerning food and fluid intake Status: Acute Plan: -Fluids: Normal saline at 100 mL/h (maintenance fluids) -Diet: Nothing by mouth, speech therapy swallow evaluation ordered; hypoglycemia protocol in placed -Electrolytes: Monitor and replete as needed (12) No contraindication to deep vein thrombosis (DVT) prophylaxis ICD Codes: Z78.9 - Other specified health status Status: Acute Plan: -Lovenox 40 mg daily -SCDs (hSasta Allen MD R1) Problem Qualifiers (1) Altered mental status: Qualified Codes: R41.0 - Disorientation, unspecified (2) Urinary tract infection: Qualified Codes: N30.00 - Acute cystitis without hematuria Shasta Allen MD R1 Aug 21, 2017 08:50 Rene Berman MD Aug 21, 2017 16:32
[2017-08-21] MEDS: TIOTROPIUM BROMIDE 18 MCG INH INH SCH (09:00)
[2017-08-21] MEDS: ASPIRIN EC 81 MG TABEC PO SCH (09:00)
[2017-08-21] MEDS: CILOSTAZOL 100 MG TAB PO SCH (09:00)
--- NOTE | 2017-08-21 12:04 | HHI.NSPN ---
(Erik CoronadoKathy GUZMANP) History Chief Complaint: Thirsty (Erik Coronado) Interval History 08/19: 72-year-old female recently admitted to the hospital for dehydration and hypotension. She has not been feeling well since discharge from the hospital and has had word finding difficulty and slurred speech and mild progressive confusion. Due to these problems she was brought back to the emergency room on 08/18/2017. She does have a 1-2 month history of intermittent headaches and sweats without definite fever. She has lost over 30 pounds in the past year but has been on a diet. There is no complaint of weakness or numbness in the extremities. She does state that her walking has been impaired. No seizure activity reported. 08/21: When seen this afternoon the patient is awake and alert in bed. She is thirsty and asks if she is able to drink. She denies any headache but does have some dizziness "I think." She does endorse some numbness to the left anterior shoulder. She is more awake and interactive today and her muscle strength is improved. She is also more oriented. (Erik CoronadoKathy WRESTLING COACH) Exam Results 08/19/17 08/19/17 08/20/17 08/20/17 08/21/17 08/21/17 06:00 18:00 06:00 18:00 06:00 18:00 Intake Total 0 ml 1052 ml Output Total 0 ml 350 ml Balance 0 ml 702 ml Intake Oral 0 ml 0 ml IV Total 1052 ml Output Urine Total 0 ml 350 ml # Voids 0 2 1 1 2 Vital Signs Date Time Temp Pulse Resp B/P (MAP) Pulse Ox O2 Delivery O2 Flow Rate FiO2 08/21/17 08:55 97.7 84 20 129/60 (83) 99 08/21/17 08:43 96 21 08/21/17 05:31 99.1 97 19 169/72 (104) 97 08/21/17 04:13 86 08/21/17 00:21 97.7 97 18 142/77 (98) 97 08/21/17 00:02 88 08/20/17 21:11 97.0 100 20 134/81 (98) 95 08/20/17 20:15 100 08/20/17 17:38 141/94 (110) 08/20/17 16:49 97.7 102 17 188/85 (119) 92 08/20/17 12:17 97.4 94 17 149/73 (98) 93 08/20/17 10:00 92 08/20/17 08:21 97.6 90 16 182/75 (110) 91 08/20/17 04:00 98.2 83 25 115/70 (85) 91 08/20/17 03:55 77 18 142/72 (95) 92 08/20/17 02:35 178/72 (107) 08/20/17 00:45 180/78 (112) 08/20/17 00:00 97.7 90 17 180/78 (112) 92 08/19/17 19:48 88 08/19/17 16:00 90 08/19/17 16:00 98.9 82 16 132/69 (90) 93 08/19/17 12:39 98.5 81 18 113/72 (86) 93 08/19/17 08:00 81 08/19/17 08:00 98.9 89 16 140/66 (90) 91 08/19/17 08:00 81 08/19/17 04:00 98.5 88 17 126/77 (93) 92 08/19/17 00:00 98.4 85 18 122/68 (86) 93 08/18/17 21:48 84 08/18/17 20:41 08/18/17 20:00 98.3 83 19 153/67 (95) 94 08/18/17 18:16 82 17 154/70 (98) 98 Nasal Cannula 2.00 08/18/17 16:15 98 Room Air 08/18/17 16:00 83 15 149/64 (92) 94 (Erik Coronado) Physical Examination GENERAL: Awake & alert in bed. Affect flat but readily interacts. No apparent distress. HEENT: Normocephalic, atraumatic. PERRLA 3 mm brisk, EOMI. Mucous membranes tacky & pink, tongue midline to protrusion. MUSCULOSKELETAL: CHAVEZ w/o difficulty. No evident clubbing or deformity. Some pain to the left biceps w/strength testing. NEUROLOGICAL: AAOx3. Speech essentially clear but soft, slow and dysarthric. Follows most simple commands w/o difficulty. Voice and extremities tremulous. CN II to XII appear grossly intact. Sensation is intact to light touch to all extremities. Motor strength is 5/5 to all major flexions & extension muscle groups of the extremities to include the wrist flexors & extensors except for the hand intrinsics & extrinsics are 3 to 3+/5 which may r/t patient not understanding commands. (Erik Coronado) Lab, Micro, Other Results Recent Impressions Abdomen/Pelvis CT 08/19/17 1930 Signed Impressions: Service Date/Time: Saturday, August 19, 2017 20:00 - CONCLUSION: Abnormal appearance to both adrenal glands with large bilateral masses measuring up to 6 cm, suspicious for malignancy. Wilfrid Jensen MD Chest CT 08/19/17 0000 Signed Impressions: Service Date/Time: Saturday, August 19, 2017 20:00 - CONCLUSION: 1. 6 mm nodule left apex. 2. Severe upper lobe emphysema. Wilfrid Jensen MD ADDENDUM: Not mentioned above is a lobular margined noncalcified opacity in the lateral right breast measuring 4.1 x 2.2 cm. If the patient has not had a recent mammogram, may consider such. Wilfrid Jensen MD Brain MRI 08/19/17 0000 Signed Impressions: Service Date/Time: Saturday, August 19, 2017 11:03 - CONCLUSION: Hemorrhagic enhancing mass identified within the left frontal lobe with minimal adjacent tumefactive edema. These findings are suggestive of a primary brain neoplasm. Given the minimal adjacent edema it metastatic lesion is considered less likely.. Renee Garcia MD Head CT 08/18/17 1609 Signed Impressions: Service Date/Time: Friday, August 18, 2017 17:35 - CONCLUSION: Solitary 1.3 cm lesion velasquez white matter left parietal region with increased density on a thickened rim and isodensity centrally abutting the dura. Could represent an atypical meningioma or solitary metastatic lesion. There is a simply mild localized at surrounding edema with no significant mass effect Stuart Baron MD Chest X-Ray 08/18/17 160 Signed Impressions: Service Date/Time: Friday, August 18, 2017 16:31 - CONCLUSION: The lungs are clear. Wilfrid Jensen MD Laboratory Tests Test 08/18/17 16:20 08/18/17 22:18 08/19/17 04:03 08/19/17 08:17 White Blood Count 7.7 TH/MM3 6.2 TH/MM3 Red Blood Count 4.27 MIL/MM3 4.05 MIL/MM3 Hemoglobin 12.9 GM/DL 12.2 GM/DL Hematocrit 37.5 % 36.1 % Mean Corpuscular Volume 87.9 FL 89.1 FL Mean Corpuscular Hemoglobin 30.2 PG 30.1 PG Mean Corpuscular Hemoglobin Concent 34.4 % 33.8 % Red Cell Distribution Width 13.1 % 13.8 % Platelet Count 277 TH/MM3 293 TH/MM3 Mean Platelet Volume 7.7 FL 7.8 FL Neutrophils (%) (Auto) 47.7 % 42.7 % Lymphocytes (%) (Auto) 34.2 % 38.0 % Monocytes (%) (Auto) 11.4 % 11.8 % Eosinophils (%) (Auto) 6.0 % 6.7 % Basophils (%) (Auto) 0.7 % 0.8 % Neutrophils # (Auto) 3.7 TH/MM3 2.7 TH/MM3 Lymphocytes # (Auto) 2.6 TH/MM3 2.4 TH/MM3 Monocytes # (Auto) 0.9 TH/MM3 0.7 TH/MM3 Eosinophils # (Auto) 0.5 TH/MM3 0.4 TH/MM3 Basophils # (Auto) 0.1 TH/MM3 0.1 TH/MM3 CBC Comment DIFF FINAL DIFF FINAL Differential Comment Prothrombin Time 11.9 SEC Prothromb Time International Ratio 1.2 RATIO Activated Partial Thromboplast Time 31.8 SEC Urine Color YELLOW Urine Turbidity CLEAR Urine pH 5.0 Urine Specific [place] 1.018 Urine Protein NEG mg/dL Urine Glucose (UA) NEG mg/dL Urine Ketones 40 mg/dL Urine Occult Blood NEG Urine Nitrite NEG Urine Bilirubin NEG Urine Urobilinogen 2.0 MG/DL Urine Leukocyte Esterase NEG Urine RBC 1 /hpf Urine WBC 2 /hpf Urine Squamous Epithelial Cells <1 /hpf Urine Bacteria OCC /hpf Urine Hyaline Casts 10 /lpf Urine Mucus FEW /lpf Microscopic Urinalysis Comment CATH-CULTURE IND Blood Urea Nitrogen 20 MG/DL 15 MG/DL Creatinine 1.06 MG/DL 0.79 MG/DL Random Glucose 64 MG/DL 135 MG/DL 57 MG/DL Total Protein 7.2 GM/DL 6.7 GM/DL Albumin 3.1 GM/DL 3.0 GM/DL Calcium Level 10.0 MG/DL 9.3 MG/DL Alkaline Phosphatase 179 U/L 151 U/L Aspartate Amino Transf (AST/SGOT) 51 U/L 40 U/L Alanine Aminotransferase (ALT/SGPT) 43 U/L 33 U/L Total Bilirubin 0.5 MG/DL 0.5 MG/DL Sodium Level 133 MEQ/L 135 MEQ/L Potassium Level 4.8 MEQ/L 4.4 MEQ/L Chloride Level 95 MEQ/L 99 MEQ/L Carbon Dioxide Level 29.0 MEQ/L 26.7 MEQ/L Anion Gap 9 MEQ/L 9 MEQ/L Estimat Glomerular Filtration Rate 51 ML/MIN 72 ML/MIN Lactic Acid Level 1.0 mmol/L Ammonia LESS THAN 10 MCMOL/L Troponin I LESS THAN 0.02 NG/ML LESS THAN 0.02 NG/ML Vitamin B12 Level 1950 PG/ML Thyroid Stimulating Hormone 3rd Gen 3.040 uIU/ML Urine Opiates Screen POS Urine Barbiturates Screen NEG Urine Amphetamines Screen NEG Urine Benzodiazepines Screen NEG Urine Cocaine Screen NEG Urine Cannabinoids Screen NEG Ethyl Alcohol Level LESS THAN 3 MG/DL Test 08/19/17 13:30 08/20/17 08:19 08/21/17 06:55 Tumor Marker Alpha Fetoprotein 1.7 NG/ML Carcinoembryonic Antigen 4.3 NG/ML CA 15-3 Antigen 22.5 U/ML CA 19-9 Antigen 22.1 U/ML CA 125 Antigen 40.0 U/ML White Blood Count 6.0 TH/MM3 11.3 TH/MM3 Red Blood Count 4.30 MIL/MM3 4.00 MIL/MM3 Hemoglobin 13.0 GM/DL 12.1 GM/DL Hematocrit 38.5 % 35.5 % Mean Corpuscular Volume 89.6 FL 88.8 FL Mean Corpuscular Hemoglobin 30.3 PG 30.2 PG Mean Corpuscular Hemoglobin Concent 33.8 % 34.0 % Red Cell Distribution Width 13.4 % 13.9 % Platelet Count 330 TH/MM3 328 TH/MM3 Mean Platelet Volume 7.9 FL 7.7 FL Neutrophils (%) (Auto) 86.7 % Lymphocytes (%) (Auto) 11.1 % Monocytes (%) (Auto) 2.0 % Eosinophils (%) (Auto) 0.0 % Basophils (%) (Auto) 0.2 % Neutrophils # (Auto) 5.2 TH/MM3 Lymphocytes # (Auto) 0.7 TH/MM3 Monocytes # (Auto) 0.1 TH/MM3 Eosinophils # (Auto) 0.0 TH/MM3 Basophils # (Auto) 0.0 TH/MM3 CBC Comment DIFF FINAL Differential Comment Blood Urea Nitrogen 18 MG/DL 24 MG/DL Creatinine 0.86 MG/DL 0.83 MG/DL Random Glucose 111 MG/DL 119 MG/DL Total Protein 7.6 GM/DL Albumin 3.2 GM/DL Calcium Level 9.7 MG/DL 9.3 MG/DL Alkaline Phosphatase 138 U/L Aspartate Amino Transf (AST/SGOT) 23 U/L Alanine Aminotransferase (ALT/SGPT) 31 U/L Total Bilirubin 0.4 MG/DL Sodium Level 135 MEQ/L 139 MEQ/L Potassium Level 4.6 MEQ/L 4.8 MEQ/L Chloride Level 100 MEQ/L 105 MEQ/L Carbon Dioxide Level 23.3 MEQ/L 25.3 MEQ/L Anion Gap 12 MEQ/L 9 MEQ/L Estimat Glomerular Filtration Rate 65 ML/MIN 68 ML/MIN (Erik Coronado) Medical Decision Making Impression and Plan Impression: 1. Left posterior frontal cortical lesion. Probable metastatic disease 2. CT chest, abdomen, pelvis results reviewed. Bilateral adrenal mass, 14 mm left lung apical nodule, right breast opacity. The patient is more awake & alert today. She is oriented to person, place & time. Her muscle strength is improved. Reviewed labs for today. Interval development of leukocytosis. Sodium 139. Slight improvement in renal function. EEG results pending. Plan: Primary management per Hospitalist. Oncology to discuss adrenal gland biopsy w/Interventional Radiology. Will continue to follow. (Erik Coronado) Attending Statement The exam, history, and the medical decision-making described in the above note were completed with the assistance of the mid-level provider. I reviewed and agree with the findings presented. I attest that I had a [id number] encounter with the patient on the same day, and personally performed and documented my assessment and findings in the medical record. On my examination today, the patient is a little more alert, still with significant cognitive function, diminished judgment and insight. No focal extremity motor deficit. Oncology notes reviewed Adrenal biopsy planned for 08/22/17 (Chaitanya Grayson MD) Erik Coronado Aug 21, 2017 12:04 Chaitanya Grayson MD Aug 21, 2017 20:28
[2017-08-21] MEDS: ESCITALOPRAM OXALATE 10 MG TAB PO SCH (12:55)
[2017-08-21] MEDS: CALCIUM CARBONATE 1.25 GM (CA 500 MG) TAB PO SCH ×2 (12:55→22:15)
[2017-08-21] MEDS: CHOLECALCIFEROL (VIT D3) 1000 UNIT TAB PO SCH ×2 (12:55→22:14)
[2017-08-21] MEDS: DOCUSATE SODIUM 50 MG/SENNA 8.6 MG TAB PO SCH ×2 (12:55→22:14)
[2017-08-21] MEDS: PRAVASTATIN SOD 40 MG TAB PO SCH (12:55)
[2017-08-21] MEDS: LEVOFLOXACIN 750 MG PREMIX INJ 150 ML IV SCH (13:01)
[2017-08-21] MEDS: PANTOPRAZOLE SODIUM 40 MG VIAL IV PUSH SCH (13:04)
--- NOTE | 2017-08-21 14:06 | PD.ONC.PN ---
Subjective Subjective Remarks Afebrile overnight. seen at 11AM. Patient resting in bed in nad. at bedside. biopsy has been delayed until tomorrow as patient received Pletal last night. Objective Data Date Time Temp Pulse Resp B/P (MAP) Pulse Ox O2 Delivery O2 Flow Rate FiO2 08/21/17 12:46 97.2 96 19 140/62 (88) 98 08/21/17 08:55 97.7 84 20 129/60 (83) 99 08/21/17 08:43 96 21 08/21/17 05:31 99.1 97 19 169/72 (104) 97 08/21/17 04:13 86 08/21/17 00:21 97.7 97 18 142/77 (98) 97 08/21/17 00:02 88 08/20/17 21:11 97.0 100 20 134/81 (98) 95 08/20/17 20:15 100 08/20/17 17:38 141/94 (110) 08/20/17 16:49 97.7 102 17 188/85 (119) 92 Result Diagram: 08/21/17 0655 08/21/17 0655 Laboratory Results Laboratory Tests Test 08/21/17 06:55 White Blood Count 11.3 TH/MM3 Red Blood Count 4.00 MIL/MM3 Hemoglobin 12.1 GM/DL Hematocrit 35.5 % Mean Corpuscular Volume 88.8 FL Mean Corpuscular Hemoglobin 30.2 PG Mean Corpuscular Hemoglobin Concent 34.0 % Red Cell Distribution Width 13.9 % Platelet Count 328 TH/MM3 Mean Platelet Volume 7.7 FL Blood Urea Nitrogen 24 MG/DL Creatinine 0.83 MG/DL Random Glucose 119 MG/DL Calcium Level 9.3 MG/DL Sodium Level 139 MEQ/L Potassium Level 4.8 MEQ/L Chloride Level 105 MEQ/L Carbon Dioxide Level 25.3 MEQ/L Anion Gap 9 MEQ/L Estimat Glomerular Filtration Rate 68 ML/MIN Culture Results Microbiology Date/Time Source Procedure Growth Status 08/20/17 20:05 Blood Peripheral Aerobic Blood Culture - Preliminary NO GROWTH IN 1 DAY Resulted 08/20/17 20:05 Blood Peripheral Anaerobic Blood Culture - Preliminary NO GROWTH IN 1 DAY Resulted 08/20/17 19:50 Blood Peripheral Aerobic Blood Culture - Preliminary NO GROWTH IN 1 DAY Resulted 08/20/17 19:50 Blood Peripheral Anaerobic Blood Culture - Preliminary NO GROWTH IN 1 DAY Resulted 08/18/17 16:20 Blood Peripheral Aerobic Blood Culture - Preliminary NO GROWTH IN 3 DAYS Resulted 08/18/17 16:20 Blood Peripheral Anaerobic Blood Culture - Preliminary NO GROWTH IN 3 DAYS Resulted 08/18/17 16:15 Blood Peripheral Aerobic Blood Culture - Preliminary NO GROWTH IN 3 DAYS Resulted 08/18/17 16:15 Anaerobic Blood Culture - Preliminary Staphylococcus Epidermidis Resulted 08/18/17 16:20 Urine Catheterized Urine Urine Culture - Final Lactobacillus Species Complete Administered Medications Medications (Trade) Dose Ordered Sig/Chichi Route PRN Reason Start Time Stop Time Status Last Admin Dose Admin Sodium Chloride (NS Flush) 2 ml BID IV FLUSH 08/18/17 21:00 08/21/17 00:24 Enoxaparin Sodium (Lovenox Inj) 40 mg Q24H SQ 08/19/17 09:00 Future Hold 08/19/17 09:00 Cholecalciferol (Vitamin D3) 1,000 units BID PO 08/19/17 09:00 Future hold 08/21/17 12:55 Cilostazol (Pletal) 100 mg BID PO 08/19/17 09:00 Future Hold 08/20/17 23:40 Escitalopram Oxalate (Lexapro) 5 mg DAILY PO 08/19/17 09:00 Future hold 08/21/17 12:55 Pravastatin Sodium (Pravachol) 40 mg DAILY PO 08/19/17 09:00 Future hold 08/21/17 12:55 Tiotropium [place] (Spiriva Inh) 18 mcg DAILY INH 08/19/17 09:00 08/20/17 08:27 Calcium Carbonate (Oscal) 500 mg BID PO 08/19/17 09:00 Future hold 08/21/17 12:55 Dextrose (D50w (Vial) Inj) 50 ml UNSCH PRN IV PUSH HYPOGLYCEMIA-SEE COMMENTS 08/19/17 03:00 08/19/17 03:16 Senna/Docusate Sodium (Belen-Colace) 1 tab BID PO 08/19/17 09:00 Future hold 08/21/17 12:55 Sodium Chloride 1,000 ml @ 100 mls/hr Q10H IV 08/19/17 09:00 08/21/17 12:17 Dexamethasone Sodium Phosphate (Decadron Inj) 4 mg Q8HR IV PUSH 08/19/17 18:00 08/21/17 06:35 Levofloxacin/ Dextrose 150 ml @ 100 mls/hr Q24H IV 08/19/17 11:00 08/21/17 13:01 Pantoprazole Sodium (Protonix Inj) 40 mg Q24H IV PUSH 08/19/17 10:15 08/21/17 13:04 Lorazepam (Ativan Inj) 0.5 mg Q4H PRN IV PUSH AGITATION AND/OR HALLUCINATION 08/19/17 13:15 08/21/17 00:23 Enalaprilat (Vasotec Inj) 1.25 mg Q6H PRN IV PUSH SEE LABEL COMMENTS 08/20/17 01:15 08/20/17 08:28 Labetalol HCl (Trandate Inj) 10 mg Q6H PRN IV PUSH SEE LABEL COMMENTS 08/20/17 03:00 08/20/17 03:25 Fluconazole/ Sodium Chloride 100 ml @ 100 mls/hr Q24H IV 08/20/17 17:00 08/20/17 17:38 Objective Remarks GENERAL: Elderly female upright in bed SKIN: Warm and dry. HEAD: Normocephalic. EYES: No injection or drainage. NECK: Supple, trachea midline. CARDIOVASCULAR: Regular rate and rhythm RESPIRATORY: Breath sounds equal bilaterally. No accessory muscle use. GASTROINTESTINAL: Abdomen soft, non-tender, nondistended. EXTREMITIES: No cyanosis NEUROLOGICAL: awake, oriented to self and place. tells me it is 2018. Assessment/Plan Problem List: (1) Brain mass ICD Codes: G93.9 - Disorder of brain, unspecified Status: Acute Plan: --started slurring her speech and had expressive aphasia about a week ago. + shuffling unsteady gait. --headache X 1 month not relieved with Tylenol. --CT head showed a solitary 1.3 cm mass in the left parietal region with increased edema. --CT ab/pelvis showed bilateral adrenal masses. --NS following. Assessment 72y/o female admitted with AMS, found to have mass, left parietal lobe and bilateral adrenal masses. h/o Chronic obstructive pulmonary disease. Fibromyalgia. Lupus. Coronary artery disease. Hyperlipidemia. Gastroesophageal reflux disease (GERD) . Hypertension. Remote history of hepatitis A and B. Herniated disc with chronic back pain. Osteoarthritis. Cataracts. Peripheral vascular disease. Plan 1. biopsy in invasive radiology tomorrow. 2. continue decadron 3. face sheet faxed to new patient referrals Attending Statement The exam, history, and the medical decision-making described in the above note were completed with the assistance of the mid-level provider. I reviewed and agree with the findings presented. I attest that I had a [id number] encounter with the patient on the same day, and personally performed and documented my assessment and findings in the medical record. Just received ativan and she is somnolent. Discussed CT with radiologist, the adrenal mass is amenable for biopsy. Plan to biopsy tomorrow. Miriam Lewis Aug 21, 2017 14:06 Manjeet Jarrett MD Aug 21, 2017 15:01
[2017-08-21] MEDS ORDERED: BISACODYL 10 MG SUPP RECTAL ONE (14:15)
--- NOTE | 2017-08-21 15:33 | MG ---
cc: FEDERICO AKERS Lab No: [id number] Date:08/21/2017 Age: Sex: F Race: TECHNIQUE 17 channel EEG. DESCRIPTION The background rhythm reveals mild slowing in the theta range. Amplitude is roughly 20-30 microvolts. There are no lateralizing features, at times there is delta slowing as well. No epileptiform discharges seen. There is occasional muscle artifact. Photic results in a poor driving response. INTERPRETATION Abnormal study consistent with a [id number] encephalopathy. MD GURPREET Garcia/emma /2:59 PM /3:11 PM
[2017-08-21] MEDS: FLUCONAZOLE 200 MG PREMIX BAG 100 ML IV SCH (17:00)
[2017-08-22] VITALS (12 sets, daily range): BP systolic 117–200; BP diastolic 52–91; PULSE 80–117; RESP 16–20; TEMP 97–98.3; O2SAT 90–98
[2017-08-22] MEDS: DEXAMETHASONE SOD PHOS 4 MG/ML VIAL IV PUSH SCH ×3 (05:34→20:13)
[2017-08-22] MEDS: ENALAPRILAT 1.25 MG/ML VIAL IV PUSH PRN ×2 (06:57→20:13)
[2017-08-22] MEDS: SODIUM CHLOR 0.9% 1000 ML INJ 1,000 ML IV SCH ×2 (07:00→17:00)
[2017-08-22] MEDS: DOCUSATE SODIUM 50 MG/SENNA 8.6 MG TAB PO SCH ×2 (09:00→20:12)
[2017-08-22] MEDS: TIOTROPIUM BROMIDE 18 MCG INH INH SCH (09:00)
[2017-08-22] MEDS: SODIUM CHLORIDE 0.9% FLUSH 10 ML FLUSH IV FLUSH SCH ×2 (09:00→20:12)
[2017-08-22] MEDS ORDERED: LIDOCAINE HCL 1% 20 ML VIAL ONE (09:19)
[2017-08-22] MEDS ORDERED: MIDAZOLAM HCL 2 MG/2 ML VIAL ONE (09:34)
[2017-08-22 10:13] LABS: HEMATOCRIT 34.1 % (35.0-46.0); HEMOGLOBIN 11.3 GM/DL (11.6-15.3); MEAN CELL VOLUME 89.2 FL (80.0-100.0); MEAN CORPUSCULAR HEMOGLOBIN 29.5 PG (27.0-34.0); MEAN CORPUSCULAR HGB CONC 33.1 % (32.0-36.0); MEAN PLATELET VOLUME 7.8 FL (7.0-11.0); PLATELET COUNT 359 TH/MM3 (150-450); RED BLOOD COUNT 3.82 MIL/MM3 (4.00-5.30); RED CELL DISTRIBUTION WIDTH 14.4 % (11.6-17.2); WHITE BLOOD COUNT 11.7 TH/MM3 (4.0-11.0)
--- NOTE | 2017-08-22 10:40 | PD.RAD ---
Post CT Procedure Prog Note Pre Procedure Diagnosis: (1) Adrenal mass (2) Brain mass Post Procedure Diagnosis: (1) Adrenal mass (2) Brain mass Procedure Date: Aug 22, 2017 Supervising Radiologist: Wilfrid Luke JR Anesthesia: Conscious Sedation Plan of Activity Patient to Unit: ROPU Patient Condition: Good See PACS Report for procedural detail/treatment Biopsy Imaging Guidance: CT Side: Right Biopsy Procedure: Adrenal Gland Specimen: Core Biopsy Findings: 3 core samples of right adrenal gland mass in this patient with bilateral adrenal gland masses. Good samples noted. No hemorrhage on postbx CT images. Jr. Ti,Wilfrid Yuan MD Aug 22, 2017 10:40
[2017-08-22 10:47] LABS: BICARBONATE 27.4 MEQ/L (21.0-32.0); CALCIUM 9.8 MG/DL (8.5-10.1); CREATININE 0.77 MG/DL (0.50-1.00)
--- NOTE | 2017-08-22 12:11 | RADRPT ---
EXAM DATE/TIME: 08/22/2017 10:00 [place] COMPARISON: No previous studies available for comparison. INDICATIONS : Right adrenal mass SEDATION TIME: 50 minutes BIOPSY SITE: Right adrenal MEDICATION(S): 1.) 1.5 mg midazolam (Versed) IV 2.) 75 mcg fentanyl (Sublimaze) IV DEVICE(S): 1.) 20 gauge Temno core biopsy needle 2.) 19 gauge introducer MEDICAL HISTORY : Chronic obstructive pulmonary disease. Cardiovascular disease. Lupus. SURGICAL HISTORY : Cholecystectomy Colon resection. ENCOUNTER: Initial ACUITY: 1 day PAIN SCORE: 0/10 LOCATION: upper quadrant A total of three core specimen(s) were obtained and sent to the laboratory for pathologic evaluation. PROCEDURE: 1. CT guided adrenal right biopsy. Prior to the procedure informed consent was obtained. Any appropriate prior imaging studies were rev iewed. Using automated exposure control and adjustment of the mA and/or kV according to patient size, radiat ion dose was kept as low as reasonably achievable to obtain optimal diagnostic quality images. DICOM format image data is available electronically for review and comparison. The site was prepped in a sterile fashion. Full sterile technique was used, including cap, mask, cristina rile gloves and gown and a large sterile sheet. Hand hygiene and 2% chlorhexidine and/or betadine/al cohol prep was utilized per protocol for cutaneous antisepsis. The skin and subcutaneous tissues wer e infiltrated with local anesthetic solution. With CT guidance the right adrenal gland mass was localized. Under CT guidance a 19 gauge coaxial nee dle was passed via paramedian approach to the peripheral margin of the right adrenal gland nodule. Ca re was taken to avoid the right kidney and IVC. Biopsy was performed using the prescribed needle as a clarita. Adequate hemostasis was obtained with compression at the puncture site. Follow-up CT scan reveals no hemorrhage. The patient tolerated the procedure well and there were no complications. The patient was returned to the Radiology Outpatient Unit in stable condition. CONCLUSION: Uncomplicated CT guided core biopsy of a right adrenal gland mass in this patient with bilateral adre nal gland masses. Wilfrid Luke Jr., MD on August 22, 2017 at 12:06 Board Certified Radiologist. This report was verified electronically.
--- NOTE | 2017-08-22 14:56 | HHI.FPPN ---
Subjective Remarks No acute events overnight. Pt doing well. at bedside. Pt just got back to the room from adrenal biopsy. Pt feels better and is more alert and awake. She reports that she feels better after having a bowel movement after receiving a suppository yesterday. She denies CP, SOB, abdominal pain, and N/V. (Shasta Allen MD R1) Objective Vitals Vital Signs Date Time Temp Pulse Resp B/P (MAP) Pulse Ox O2 Delivery O2 Flow Rate FiO2 08/22/17 12:35 83 20 117/65 (82) 98 08/22/17 12:05 82 20 134/52 (79) 98 08/22/17 11:35 80 20 121/59 (79) 98 08/22/17 11:05 90 20 122/67 (85) 98 08/22/17 10:55 98.3 86 20 161/81 (107) 98 08/22/17 08:00 97.2 117 16 199/88 (125) 90 08/22/17 06:56 113 188/91 (123) 08/22/17 04:28 111 08/22/17 04:00 97.0 110 18 175/79 (111) 97 08/21/17 20:00 97.5 101 18 151/67 (95) 96 08/21/17 19:47 103 08/21/17 17:15 99 21 08/21/17 17:02 97.5 99 17 133/65 (87) 99 08/21/17 16:00 86 I/O 08/21/17 08/21/17 08/21/17 08/22/17 08/22/17 08/22/17 07:00 15:00 23:00 07:00 15:00 23:00 Intake Total 1000 ml Balance 1000 ml IV Total 1000 ml # Voids 1 2 5 (Shasta Allen MD R1) Result Diagram: 08/22/17 0853 08/22/17 0853 Objective Remarks GENERAL: Elderly female lying in bed in NAD. currently at the bedside. HEENT: AT, NC with EOMI. No rhinorrhea. MMM. No visible LAD or JVD appreciated. RESPIRATORY: CTAB with no CRW. No increased WOB. CARDIOVASCULAR: RRR, no m/r/g. Radial and DP pulses 2+ and symmetric bilaterally. Brisk capillary refill. ABDOMEN: Soft, nontender, nondistended with +BS. No hepatosplenomegaly. EXTREMITIES: No remarkable dependent edema or varicosities. No cyanosis or erythema. MUSCULOSKELETAL: No calf tenderness. SKIN: Essentially clear with no significant rash or lesions. Adequate skin turgor. NEUROLOGICAL: Speech-much improved from prior exam, able to talk in full sentences, answers questions appropriately,follow directions Cranial nerves- 2 through 12 grossly intact. Patient moving all 4 extremities spontaneously, sensation intact Breast Exam 08/20 With myself and nurse Raj Gonzalez present, Dr. Fitzgerald completed BL breast exam. Bilateral breasts visually inspected with no abnormalities appreciated. The BL breasts were then examined using mild, moderate, and deep palpation with no masses or other abnormalities appreciated. Negative discharge upon expression. Patient nontender to palpation. Bilateral axilla palpated without abnormality appreciated. (Shasta Allen MD R1) A/P Assessment and Plan Mrs. Neves is a 72 y/o F presenting with AMS found to have a new L parietal brain mass. Discharge Planning Pending clinical course (Shasat Allen MD R1) Attending Attestation Patient seen and examined. Case reviewed and discussed with the resident team. Agree with plan of care as discussed with me and documented in the resident note. she is awake and alert and talking which is an improvement (Gilda Ortiz MD) Problem List: (1) Brain mass ICD Codes: G93.9 - Disorder of brain, unspecified Status: Acute Plan: Primary brain mass versus metastatic lesion versus meningioma Consultation to hematology/oncology with Dr. Jarrett -appreciate recommendations -Tumor markers: CA 125 elevated at 40 -MRI of the brain shows hemorrhagic enhancing mass identified within the left frontal lobe with minimal adjacent tumefactive edema. Findings suggestive of primary brain neoplasm. -CT chest shows 1.6 mm nodule of the left apex with upper lobe emphysema. Noncalcified opacity in the lateral right breast measuring 4.1 x 2.2 cm -CT abdomen pelvis shows both adrenal glands with large bilateral masses measuring up to 6 cm, suspicious for malignancy. -CT guided biopsy of adrenal glands postponed due to cilostazol, will hold cilostazol for procedure tomorrow Decadron IV 10 mg 1 -Continue Decadron 4 mg IV every 8 hours -Lovenox held as brain mass appears hemorrhagic Neurology consult placed as patient is known to Dr. Lancaster -EEG- abnormal study consistent with a mild-moderate encephalopathy Neurosurgery consulted -will wait for further input from oncology regarding biopsy of lesions noted on CT chest abdomen and pelvis versus proceeding with excisional biopsy of left frontal lesion. The left frontal lesion is directly cortical and then be resected through a relatively small craniotomy with stereotactic guidance if needed. She appears quite frail significant speech memory and cognitive deficits which may increase the risk of anesthesia or surgical intervention. (2) Adrenal mass ICD Codes: E27.9 - Disorder of adrenal gland, unspecified Status: Acute Plan: -CT abdomen and pelvis as above -CT guided adrenal biopsy performed on 08/22. Pathology pending. (3) Breast mass, right ICD Codes: N63.10 - Unspecified lump in the right breast, unspecified quadrant Status: Acute Plan: -CT chest as above -Exam within normal limits -Obtained mammogram results from Dr. Cordova's office, patient's last mammogram was January 2017, negative (4) Altered mental status ICD Codes: R41.82 - Altered mental status, unspecified Status: Acute Plan: Patient presenting with altered mental status likely secondary to brain mass and edema Mental status improving, patient more alert, awake, and oriented Previous workup: -Electrolytes relatively benign -UDS: Positive opiates, otherwise negative -Alcohol less than 3 -Ammonia less than 10 -TSH 3.04 -Troponin less than 0.02, repeat x1 -Vitamin B12 1950 -Lactic acid 1.0 (5) JACKY (acute kidney injury) ICD Codes: N17.9 - Acute kidney failure, unspecified Status: Acute Plan: Stage 1 JACKY likely secondary to dehydration on arrival -Status post IV hydration with normalization of renal function and creatinine of 0.79 -Urinalysis with 40 ketones and occasional bacteria -Given suprapubic tenderness with bacteriuria, we will treat for possible UTI, continue Levaquin -Urine culture also positive for lactobacillus, continue Diflucan 08/20 -Normal saline IV hydration at 110 mL/hour -Continue to monitor (6) Urinary tract infection ICD Codes: N39.0 - Urinary tract infection, site not specified Status: Acute Plan: UA with ketones and bacteriuria UC with lactobacillus Tenderness to palpation in suprapubic region Started on Levaquin 08/19/17 Started fluconazole 2/12/18 (7) Anxiety with depression ICD Codes: F41.8 - Other specified anxiety disorders Status: Chronic Plan: -Continue home citalopram -Continue home clonazepam (8) PVD (peripheral vascular disease) ICD Codes: I73.9 - Peripheral vascular disease, unspecified Status: Chronic Plan: -Hold home cilostazol due to adrenal procedure today (9) Hyperlipidemia ICD Codes: E78.5 - Hyperlipidemia, unspecified Status: Chronic Plan: -Continue home lovastatin -Continue home aspirin (10) COPD (chronic obstructive pulmonary disease) ICD Codes: J44.9 - Chronic obstructive pulmonary disease, unspecified Status: Chronic Plan: -Continue home Spiriva -Continue home Ventolin -Continue home fometerol -Continue home Tessalon Perles (11) Nutrition, metabolism, and development symptoms ICD Codes: R63.8 - Other symptoms and signs concerning food and fluid intake Status: Acute Plan: -Fluids: Normal saline at 100 mL/h (maintenance fluids) -Diet: mechanical soft diet with thin liquids -Electrolytes: Monitor and replete as needed (12) No contraindication to deep vein thrombosis (DVT) prophylaxis ICD Codes: Z78.9 - Other specified health status Status: Acute Plan: -Held Lovenox 40 mg daily due to procedure -SCDs (Shasta Allen MD R1) Problem Qualifiers (1) Altered mental status: Qualified Codes: R41.0 - Disorientation, unspecified (2) Urinary tract infection: Qualified Codes: N30.00 - Acute cystitis without hematuria (3) Hyperlipidemia: Qualified Codes: E78.5 - Hyperlipidemia, unspecified (4) COPD (chronic obstructive pulmonary disease): Shasta Allen MD R1 Aug 22, 2017 14:56 Gilda Ortiz MD Aug 23, 2017 13:48
[2017-08-22] MEDS: CHOLECALCIFEROL (VIT D3) 1000 UNIT TAB PO SCH ×2 (15:27→20:12)
[2017-08-22] MEDS: ASPIRIN EC 81 MG TABEC PO SCH (15:27)
[2017-08-22] MEDS: PRAVASTATIN SOD 40 MG TAB PO SCH (15:27)
[2017-08-22] MEDS: CALCIUM CARBONATE 1.25 GM (CA 500 MG) TAB PO SCH ×2 (15:27→20:12)
[2017-08-22] MEDS: ESCITALOPRAM OXALATE 10 MG TAB PO SCH (15:27)
[2017-08-22] MEDS: LEVOFLOXACIN 750 MG PREMIX INJ 150 ML IV SCH (15:37)
[2017-08-22] MEDS: PANTOPRAZOLE SODIUM 40 MG VIAL IV PUSH SCH (15:37)
--- NOTE | 2017-08-22 16:35 | PD.ONC.PN ---
Subjective Subjective Remarks Still confused. Nursing staff reported pt more awake during the night. Objective Data Date Time Temp Pulse Resp B/P (MAP) Pulse Ox O2 Delivery O2 Flow Rate FiO2 08/22/17 12:35 83 20 117/65 (82) 98 08/22/17 12:05 82 20 134/52 (79) 98 08/22/17 11:35 80 20 121/59 (79) 98 08/22/17 11:05 90 20 122/67 (85) 98 08/22/17 10:55 98.3 86 20 161/81 (107) 98 08/22/17 08:00 97.2 117 16 199/88 (125) 90 08/22/17 06:56 113 188/91 (123) 08/22/17 04:28 111 08/22/17 04:00 97.0 110 18 175/79 (111) 97 08/21/17 20:00 97.5 101 18 151/67 (95) 96 08/21/17 19:47 103 08/21/17 17:15 99 21 08/21/17 17:02 97.5 99 17 133/65 (87) 99 Result Diagram: 08/22/17 0853 08/22/17 0853 Laboratory Results Laboratory Tests Test 08/22/17 08:53 White Blood Count 11.7 TH/MM3 Red Blood Count 3.82 MIL/MM3 Hemoglobin 11.3 GM/DL Hematocrit 34.1 % Mean Corpuscular Volume 89.2 FL Mean Corpuscular Hemoglobin 29.5 PG Mean Corpuscular Hemoglobin Concent 33.1 % Red Cell Distribution Width 14.4 % Platelet Count 359 TH/MM3 Mean Platelet Volume 7.8 FL Blood Urea Nitrogen 22 MG/DL Creatinine 0.77 MG/DL Random Glucose 122 MG/DL Calcium Level 9.8 MG/DL Sodium Level 142 MEQ/L Potassium Level 4.3 MEQ/L Chloride Level 108 MEQ/L Carbon Dioxide Level 27.4 MEQ/L Anion Gap 7 MEQ/L Estimat Glomerular Filtration Rate 74 ML/MIN Culture Results Microbiology Date/Time Source Procedure Growth Status 08/20/17 20:05 Blood Peripheral Aerobic Blood Culture - Preliminary NO GROWTH IN 2 DAYS Resulted 08/20/17 20:05 Blood Peripheral Anaerobic Blood Culture - Preliminary NO GROWTH IN 2 DAYS Resulted 08/20/17 19:50 Blood Peripheral Aerobic Blood Culture - Preliminary NO GROWTH IN 2 DAYS Resulted 08/20/17 19:50 Blood Peripheral Anaerobic Blood Culture - Preliminary NO GROWTH IN 2 DAYS Resulted Imaging Studies Last 24 hours Impressions Adrenal Biopsy CT 08/22/17913 Signed Impressions: Service Date/Time: Tuesday, August 22, 2017 10:00 - CONCLUSION: Uncomplicated CT guided core biopsy of a right adrenal gland mass in this patient with bilateral adrenal gland masses. Wilfrid Luke Jr., MD Administered Medications Medications (Trade) Dose Ordered Sig/Chichi Route PRN Reason Start Time Stop Time Status Last Admin Dose Admin Sodium Chloride (NS Flush) 2 ml BID IV FLUSH 08/18/17 21:00 08/22/17 09:00 Enoxaparin Sodium (Lovenox Inj) 40 mg Q24H SQ 08/19/17 09:00 Future Hold 08/19/17 09:00 Aspirin (Ecotrin Ec) 81 mg DAILY PO 08/19/17 09:00 Future hold 08/22/17 15:27 Cholecalciferol (Vitamin D3) 1,000 units BID PO 08/19/17 09:00 Future hold 08/22/17 15:27 Cilostazol (Pletal) 100 mg BID PO 08/19/17 09:00 Future Hold 08/20/17 23:40 Escitalopram Oxalate (Lexapro) 5 mg DAILY PO 08/19/17 09:00 Future hold 08/22/17 15:27 Pravastatin Sodium (Pravachol) 40 mg DAILY PO 08/19/17 09:00 Future hold 08/22/17 15:27 Tiotropium [place] (Spiriva Inh) 18 mcg DAILY INH 08/19/17 09:00 08/22/17 09:00 Calcium Carbonate (Oscal) 500 mg BID PO 08/19/17 09:00 Future hold 08/22/17 15:27 Dextrose (D50w (Vial) Inj) 50 ml UNSCH PRN IV PUSH HYPOGLYCEMIA-SEE COMMENTS 08/19/17 03:00 08/19/17 03:16 Senna/Docusate Sodium (Belen-Colace) 1 tab BID PO 08/19/17 09:00 Future hold 08/22/17 09:00 Sodium Chloride 1,000 ml @ 100 mls/hr Q10H IV 08/19/17 09:00 08/22/17 07:00 Levofloxacin/ Dextrose 150 ml @ 100 mls/hr Q24H IV 08/19/17 11:00 08/22/17 15:37 Pantoprazole Sodium (Protonix Inj) 40 mg Q24H IV PUSH 08/19/17 10:15 08/22/17 15:37 Lorazepam (Ativan Inj) 0.5 mg Q4H PRN IV PUSH AGITATION AND/OR HALLUCINATION 08/19/17 13:15 08/21/17 00:23 Enalaprilat (Vasotec Inj) 1.25 mg Q6H PRN IV PUSH SEE LABEL COMMENTS 08/20/17 01:15 08/22/17 06:57 Labetalol HCl (Trandate Inj) 10 mg Q6H PRN IV PUSH SEE LABEL COMMENTS 08/20/17 03:00 08/20/17 03:25 Fluconazole/ Sodium Chloride 100 ml @ 100 mls/hr Q24H IV 08/20/17 17:00 08/21/17 17:00 Objective Remarks GENERAL: Weak, SKIN: Warm and dry. HEAD: Normocephalic. EYES: No scleral icterus. No injection or drainage. NECK: Supple, trachea midline. No JVD or lymphadenopathy. LYMPHATIC: No adenopathy. CARDIOVASCULAR: Regular rate and rhythm without murmurs. RESPIRATORY: Breath sounds equal bilaterally. No accessory muscle use. GASTROINTESTINAL: Abdomen soft, +tenderness, +BS EXTREMITIES: No cyanosis, or edema. MUSCULOSKELETAL: Adequate muscle tone. NEUROLOGICAL: Slightly weak left side. Assessment/Plan Problem List: (1) Brain mass ICD Codes: G93.9 - Disorder of brain, unspecified Status: Acute Plan: --started slurring her speech and had expressive aphasia about a week ago. + shuffling unsteady gait. --headache X 1 month not relieved with Tylenol. --CT head showed a solitary 1.3 cm mass in the left parietal region with increased edema. --CT ab/pelvis showed bilateral adrenal masses. --NS following. (2) Adrenal mass ICD Codes: E27.9 - Disorder of adrenal gland, unspecified Status: Acute Plan: Bilateral adrenal masses. Await biopsy today. Assessment 72y/o female admitted with AMS, found to have mass, left parietal lobe and bilateral adrenal masses. h/o Chronic obstructive pulmonary disease. Fibromyalgia. Lupus. Coronary artery disease. Hyperlipidemia. Gastroesophageal reflux disease (GERD) . Hypertension. Remote history of hepatitis A and B. Herniated disc with chronic back pain. Osteoarthritis. Cataracts. Peripheral vascular disease. Plan 1. biopsy of adrenal mass today. 2. continue Manjeet Orozco MD Aug 22, 2017 16:35
[2017-08-22] MEDS: FLUCONAZOLE 200 MG PREMIX BAG 100 ML IV SCH (19:01)
[2017-08-23] VITALS (8 sets, daily range): BP systolic 143–191; BP diastolic 67–88; PULSE 90–101; RESP 18; TEMP 97.5–97.8; O2SAT 94–98
[2017-08-23] MEDS: ENALAPRILAT 1.25 MG/ML VIAL IV PUSH PRN (02:29)
[2017-08-23] MEDS: SODIUM CHLOR 0.9% 1000 ML INJ 1,000 ML IV SCH ×2 (02:33→11:53)
[2017-08-23] MEDS: DEXAMETHASONE SOD PHOS 4 MG/ML VIAL IV PUSH SCH (06:28)
[2017-08-23 07:18] LABS: HEMATOCRIT 33.1 % (35.0-46.0); MEAN CELL VOLUME 88.5 FL (80.0-100.0); MEAN CORPUSCULAR HEMOGLOBIN 29.5 PG (27.0-34.0); MEAN CORPUSCULAR HGB CONC 33.4 % (32.0-36.0); MEAN PLATELET VOLUME 8.1 FL (7.0-11.0); PLATELET COUNT 318 TH/MM3 (150-450); RED BLOOD COUNT 3.74 MIL/MM3 (4.00-5.30); RED CELL DISTRIBUTION WIDTH 14.3 % (11.6-17.2); WHITE BLOOD COUNT 10.1 TH/MM3 (4.0-11.0)
[2017-08-23 07:28] LABS: BICARBONATE 27.3 MEQ/L (21.0-32.0); CALCIUM 8.6 MG/DL (8.5-10.1); CREATININE 0.76 MG/DL (0.50-1.00)
[2017-08-23] MEDS: DOCUSATE SODIUM 50 MG/SENNA 8.6 MG TAB PO SCH (08:07)
[2017-08-23] MEDS: CALCIUM CARBONATE 1.25 GM (CA 500 MG) TAB PO SCH (08:09)
[2017-08-23] MEDS: ESCITALOPRAM OXALATE 10 MG TAB PO SCH (08:10)
[2017-08-23] MEDS: PRAVASTATIN SOD 40 MG TAB PO SCH (08:10)
[2017-08-23] MEDS: ASPIRIN EC 81 MG TABEC PO SCH (08:10)
[2017-08-23] MEDS: CHOLECALCIFEROL (VIT D3) 1000 UNIT TAB PO SCH (08:10)
[2017-08-23] MEDS: TIOTROPIUM BROMIDE 18 MCG INH INH SCH (08:11)
[2017-08-23] MEDS: SODIUM CHLORIDE 0.9% FLUSH 10 ML FLUSH IV FLUSH SCH (08:11)
[2017-08-23] MEDS: PANTOPRAZOLE SODIUM 40 MG VIAL IV PUSH SCH (09:47)
[2017-08-23] MEDS: LEVOFLOXACIN 750 MG PREMIX INJ 150 ML IV SCH (09:48)
--- NOTE | 2017-08-23 11:06 | HHI.NSPN ---
History Chief Complaint: No complaints. Interval History 08/19: 72-year-old female recently admitted to the hospital for dehydration and hypotension. She has not been feeling well since discharge from the hospital and has had word finding difficulty and slurred speech and mild progressive confusion. Due to these problems she was brought back to the emergency room on 08/18/2017. She does have a 1-2 month history of intermittent headaches and sweats without definite fever. She has lost over 30 pounds in the past year but has been on a diet. There is no complaint of weakness or numbness in the extremities. She does state that her walking has been impaired. No seizure activity reported. 08/21: When seen this afternoon the patient is awake and alert in bed. She is thirsty and asks if she is able to drink. She denies any headache but does have some dizziness "I think." She does endorse some numbness to the left anterior shoulder. She is more awake and interactive today and her muscle strength is improved. She is also more oriented. 08/23: This morning the patient is awake and alert in bed watching TV and visiting with her family. She says she is doing well and had no complaints. She denied any headache, dizziness or double or blurry vision. She denied any pain, numbness, tingling or weakness to the extremities. She did say she will occasionally have numbness to the left foot but doesn't have any today. Her neuro exam is stable. She did go to Interventional Radiology for a biopsy of the adrenal gland yesterday. Exam Results 08/21/17 08/21/17 08/22/17 08/22/17 08/23/17 08/23/17 06:00 18:00 06:00 18:00 06:00 18:00 Intake Total 1000 ml Balance 1000 ml IV Total 1000 ml # Voids 1 2 5 1 Vital Signs Date Time Temp Pulse Resp B/P (MAP) Pulse Ox O2 Delivery O2 Flow Rate FiO2 08/23/17 05:02 150/67 (94) 08/23/17 04:57 175/77 (109) 2/15/18 04:03 97.8 97 18 174/84 (114) 97 08/23/17 03:19 90 08/23/17 03:19 92 08/23/17 02:30 191/84 (119) 184/72 (109) 08/23/17 01:36 97.8 101 18 181/88 (119) 98 08/22/17 20:18 97.8 90 18 191/84 (119) 95 08/22/17 20:00 97.8 95 18 200/81 (120) 96 08/22/17 16:00 97.7 100 16 167/74 (105) 92 08/22/17 12:35 83 20 117/65 (82) 98 08/22/17 12:05 82 20 134/52 (79) 98 08/22/17 11:35 80 20 121/59 (79) 98 08/22/17 11:05 90 20 122/67 (85) 98 08/22/17 10:55 98.3 86 20 161/81 (107) 98 08/22/17 08:00 97.2 117 16 199/88 (125) 90 08/22/17 06:56 113 188/91 (123) 08/22/17 04:28 111 08/22/17 04:00 97.0 110 18 175/79 (111) 97 08/21/17 20:00 97.5 101 18 151/67 (95) 96 08/21/17 19:47 103 08/21/17 17:15 99 21 08/21/17 17:02 97.5 99 17 133/65 (87) 99 08/21/17 16:00 86 08/21/17 12:46 97.2 96 19 140/62 (88) 98 08/21/17 08:55 97.7 84 20 129/60 (83) 99 08/21/17 08:43 96 21 08/21/17 05:31 99.1 97 19 169/72 (104) 97 08/21/17 04:13 86 08/21/17 00:21 97.7 97 18 142/77 (98) 97 08/21/17 00:02 88 08/20/17 21:11 97.0 100 20 134/81 (98) 95 08/20/17 20:15 100 08/20/17 17:38 141/94 (110) 08/20/17 16:49 97.7 102 17 188/85 (119) 92 08/20/17 12:17 97.4 94 17 149/73 (98) 93 Physical Examination GENERAL: Awake & alert in bed. Affect slightly flat. She does interact readily and will smile and laugh. No apparent distress. HEENT: Normocephalic, atraumatic. PERRLA 3 mm brisk, EOMI. MMM & pink, tongue midline to protrusion. MUSCULOSKELETAL: CHAVEZ w/o difficulty. No evident clubbing or deformity. NEUROLOGICAL: AAOx3. Speech essentially clear but soft, slow and dysarthric. Follows simple commands w/o difficulty. Voice and extremities tremulous. CN II through XII appear grossly intact. Sensation is intact to light touch to all extremities. Motor strength is 5/5 to all major flexions & extension muscle groups of the extremities except for the left extensor hallucis longus is 4/5. Lab, Micro, Other Results Recent Impressions Adrenal Biopsy CT 08/22/17 0914 Signed Impressions: Service Date/Time: Tuesday, August 22, 2017 10:00 - CONCLUSION: Uncomplicated CT guided core biopsy of a right adrenal gland mass in this patient with bilateral adrenal gland masses. Wilfrid Luke Jr., MD Laboratory Tests Test 08/21/17 06:55 08/22/17 08:53 08/23/17 06:28 White Blood Count 11.3 TH/MM3 11.7 TH/MM3 10.1 TH/MM3 Red Blood Count 4.00 MIL/MM3 3.82 MIL/MM3 3.74 MIL/MM3 Hemoglobin 12.1 GM/DL 11.3 GM/DL 11.0 GM/DL Hematocrit 35.5 % 34.1 % 33.1 % Mean Corpuscular Volume 88.8 FL 89.2 FL 88.5 FL Mean Corpuscular Hemoglobin 30.2 PG 29.5 PG 29.5 PG Mean Corpuscular Hemoglobin Concent 34.0 % 33.1 % 33.4 % Red Cell Distribution Width 13.9 % 14.4 % 14.3 % Platelet Count 328 TH/MM3 359 TH/MM3 318 TH/MM3 Mean Platelet Volume 7.7 FL 7.8 FL 8.1 FL Blood Urea Nitrogen 24 MG/DL 22 MG/DL 18 MG/DL Creatinine 0.83 MG/DL 0.77 MG/DL 0.76 MG/DL Random Glucose 119 MG/DL 122 MG/DL 139 MG/DL Calcium Level 9.3 MG/DL 9.8 MG/DL 8.6 MG/DL Sodium Level 139 MEQ/L 142 MEQ/L 140 MEQ/L Potassium Level 4.8 MEQ/L 4.3 MEQ/L 4.3 MEQ/L Chloride Level 105 MEQ/L 108 MEQ/L 107 MEQ/L Carbon Dioxide Level 25.3 MEQ/L 27.4 MEQ/L 27.3 MEQ/L Anion Gap 9 MEQ/L 7 MEQ/L 6 MEQ/L Estimat Glomerular Filtration Rate 68 ML/MIN 74 ML/MIN 75 ML/MIN Hematology Comments Medical Decision Making Impression and Plan Impression: 1. Left posterior frontal cortical lesion. Probable metastatic disease 2. CT chest, abdomen, pelvis results reviewed. Bilateral adrenal mass, 14 mm left lung apical nodule, right breast opacity. The patient is doing well and remains neurologically intact. Hypertension. Reviewed labs for today. Interval resolution of leukocytosis. Slight drop in haemoglobin level. Sodium 140. Renal function essentially stable. EEG consistent w/[id number] encephalopathy. Plan: Primary management per Hospitalist. Oncology to discuss adrenal gland biopsy w/Interventional Radiology. Will continue to follow. Erik Coronado Aug 23, 2017 11:06
--- NOTE | 2017-08-23 11:41 | HHI.FPPN ---
Subjective Remarks No acute issues overnight. Vitals are stable, patient remains afebrile. She denies any chest pain, shortness of breath, fever, chills, nausea or vomiting. She is tolerating by mouth. She is able to ambulate down the [place] without difficulty. (Kristina Mcgregor MD, R3) Objective Vitals Vital Signs Date Time Temp Pulse Resp B/P (MAP) Pulse Ox O2 Delivery O2 Flow Rate FiO2 08/23/17 08:00 97.5 95 18 154/82 (106) 98 08/23/17 05:02 150/67 (94) 08/23/17 04:57 175/77 (109) 08/23/17 04:03 97.8 97 18 174/84 (114) 97 08/23/17 03:19 90 08/23/17 03:19 92 08/23/17 02:30 191/84 (119) 184/72 (109) 08/23/17 01:36 97.8 101 18 181/88 (119) 98 08/22/17 20:18 97.8 90 18 191/84 (119) 95 08/22/17 20:00 97.8 95 18 200/81 (120) 96 08/22/17 16:00 97.7 100 16 167/74 (105) 92 08/22/17 12:35 83 20 117/65 (82) 98 08/22/17 12:05 82 20 134/52 (79) 98 I/O 08/22/17 08/22/17 08/22/17 08/23/17 08/23/17 08/23/17 07:00 15:00 23:00 07:00 15:00 23:00 # Voids 5 1 (Kristina Mcgregor MD, R3) Result Diagram: 08/23/17 0628 08/23/17 0628 Imaging Last Impressions Adrenal Biopsy CT 08/22/1714 Signed Impressions: Service Date/Time: Tuesday, August 22, 2017 10:00 - CONCLUSION: Uncomplicated CT guided core biopsy of a right adrenal gland mass in this patient with bilateral adrenal gland masses. Wilfrid Luke Jr., MD Abdomen/Pelvis CT 08/19/17 193 Signed Impressions: Service Date/Time: Saturday, August 19, 2017 20:00 - CONCLUSION: Abnormal appearance to both adrenal glands with large bilateral masses measuring up to 6 cm, suspicious for malignancy. Wilfrid Jensen MD Chest CT 08/19/17 0000 Signed Impressions: Service Date/Time: Saturday, August 19, 2017 20:00 - CONCLUSION: 1. 6 mm nodule left apex. 2. Severe upper lobe emphysema. Wilfrid Jensen MD ADDENDUM: Not mentioned above is a lobular margined noncalcified opacity in the lateral right breast measuring 4.1 x 2.2 cm. If the patient has not had a recent mammogram, may consider such. Wilfrid Jensen MD Brain MRI 08/19/17 0000 Signed Impressions: Service Date/Time: Saturday, August 19, 2017 11:03 - CONCLUSION: Hemorrhagic enhancing mass identified within the left frontal lobe with minimal adjacent tumefactive edema. These findings are suggestive of a primary brain neoplasm. Given the minimal adjacent edema it metastatic lesion is considered less likely.. Renee Garcia MD Head CT 08/18/17 1609 Signed Impressions: Service Date/Time: Friday, August 18, 2017 17:35 - CONCLUSION: Solitary 1.3 cm lesion velasquez white matter left parietal region with increased density on a thickened rim and isodensity centrally abutting the dura. Could represent an atypical meningioma or solitary metastatic lesion. There is a simply mild localized at surrounding edema with no significant mass effect Stuart Baron MD Chest X-Ray 08/18/17 160 Signed Impressions: Service Date/Time: Friday, August 18, 2017 16:31 - CONCLUSION: The lungs are clear. Wilfrid Jensen MD Hip and Pelvis X-Ray 08/18/17 0000 Signed Impressions: Service Date/Time: Friday, August 18, 2017 17:26 - CONCLUSION: Unremarkable examination of the left hip. Stuart Baron MD Objective Remarks GENERAL: Elderly female lying in bed in NAD. currently at the bedside. HEENT: AT, NC with EOMI. No rhinorrhea. MMM. No visible LAD or JVD appreciated. RESPIRATORY: CTAB with no CRW. No increased WOB. CARDIOVASCULAR: RRR, no m/r/g. Radial and DP pulses 2+ and symmetric bilaterally. Brisk capillary refill. ABDOMEN: Soft, nontender, nondistended with +BS. No hepatosplenomegaly. EXTREMITIES: No remarkable dependent edema or varicosities. No cyanosis or erythema. MUSCULOSKELETAL: No calf tenderness. SKIN: Essentially clear with no significant rash or lesions. Adequate skin turgor. NEUROLOGICAL: Speech-able to talk in full sentences, answers questions appropriately,follow directions Cranial nerves- 2 through 12 grossly intact. Patient moving all 4 extremities spontaneously, sensation intact (Kristina Mcgregor MD, R3) A/P Assessment and Plan Mrs. Neves is a 72 y/o F presenting with AMS found to have a new L parietal brain mass. Discharge Planning Discharge home with home health today. (Kristina Mcgregor MD, R3) Attending Attestation Patient seen and examined. Case reviewed and discussed with the resident team. Agree with plan of care as discussed with me and documented in the resident note. thankfully, she is able to get up and walk in the [place] independently at this time. she and her both want to go home today. they will follow up with Oncology for the biopsy results. ordered [facility] to help with transition home. (Gilda Ortiz MD) Problem List: (1) Brain mass ICD Codes: G93.9 - Disorder of brain, unspecified Status: Acute Plan: Primary brain mass versus metastatic lesion versus meningioma Consultation to hematology/oncology with Dr. Jarrett -appreciate recommendations -Tumor markers: CA 125 elevated at 40 -MRI of the brain shows hemorrhagic enhancing mass identified within the left frontal lobe with minimal adjacent tumefactive edema. Findings suggestive of primary brain neoplasm. -CT chest shows 1.6 mm nodule of the left apex with upper lobe emphysema. Noncalcified opacity in the lateral right breast measuring 4.1 x 2.2 cm -CT abdomen pelvis shows both adrenal glands with large bilateral masses measuring up to 6 cm, suspicious for malignancy. -CT guided biopsy of adrenal glands postponed due to cilostazol, will hold cilostazol for procedure tomorrow Decadron IV 10 mg 1 -Continue Decadron 4 mg IV every 8 hours, transition to PO on discharge -Lovenox held as brain mass appears hemorrhagic Neurology consult placed as patient is known to Dr. Lancaster -EEG- abnormal study consistent with a mild-moderate encephalopathy Neurosurgery consulted -will wait for further input from oncology regarding biopsy of lesions noted on CT chest abdomen and pelvis versus proceeding with excisional biopsy of left frontal lesion. The left frontal lesion is directly cortical and then be resected through a relatively small craniotomy with stereotactic guidance if needed. She appears quite frail significant speech memory and cognitive deficits which may increase the risk of anesthesia or surgical intervention. (2) Adrenal mass ICD Codes: E27.9 - Disorder of adrenal gland, unspecified Status: Acute Plan: -CT abdomen and pelvis as above -CT guided adrenal biopsy performed on 08/22. Pathology pending. (3) Breast mass, right ICD Codes: N63.10 - Unspecified lump in the right breast, unspecified quadrant Status: Acute Plan: -CT chest as above -Exam within normal limits -Obtained mammogram results from Dr. Cordova's office, patient's last mammogram was January 2017, negative (4) Altered mental status ICD Codes: R41.82 - Altered mental status, unspecified Status: Acute Plan: Patient presenting with altered mental status likely secondary to brain mass and edema Mental status improving, patient more alert, awake, and oriented Previous workup: -Electrolytes relatively benign -UDS: Positive opiates, otherwise negative -Alcohol less than 3 -Ammonia less than 10 -TSH 3.04 -Troponin less than 0.02, repeat x1 -Vitamin B12 1950 -Lactic acid 1.0 (5) Urinary tract infection ICD Codes: N39.0 - Urinary tract infection, site not specified Status: Acute Plan: UA with ketones and bacteriuria UC with lactobacillus Tenderness to palpation in suprapubic region Started on Levaquin 08/19/17 Started fluconazole 08/20/17 (6) Anxiety with depression ICD Codes: F41.8 - Other specified anxiety disorders Status: Chronic Plan: -Continue home citalopram -Continue home clonazepam (7) PVD (peripheral vascular disease) ICD Codes: I73.9 - Peripheral vascular disease, unspecified Status: Chronic Plan: -Resume cilostazol (8) Hyperlipidemia ICD Codes: E78.5 - Hyperlipidemia, unspecified Status: Chronic Plan: -Continue home lovastatin -Continue home aspirin (9) COPD (chronic obstructive pulmonary disease) ICD Codes: J44.9 - Chronic obstructive pulmonary disease, unspecified Status: Chronic Plan: -Continue home Spiriva -Continue home Ventolin -Continue home fometerol -Continue home Tessalon Perles (10) Nutrition, metabolism, and development symptoms ICD Codes: R63.8 - Other symptoms and signs concerning food and fluid intake Status: Acute Plan: -Fluids: DC IV fluids -Diet: mechanical soft diet with thin liquids -Electrolytes: Monitor and replete as needed (11) No contraindication to deep vein thrombosis (DVT) prophylaxis ICD Codes: Z78.9 - Other specified health status Status: Acute Plan: -Held Lovenox 40 mg daily due to procedure -SCDs (Kristina Mcgregor MD, R3) Problem Qualifiers (1) Altered mental status: Qualified Codes: R41.0 - Disorientation, unspecified (2) Urinary tract infection: Qualified Codes: N30.00 - Acute cystitis without hematuria (3) Hyperlipidemia: Qualified Codes: E78.5 - Hyperlipidemia, unspecified (4) COPD (chronic obstructive pulmonary disease): Kristina Mcgregor MD, R3 Aug 23, 2017 11:41 Gilda Ortiz MD Aug 23, 2017 13:50
[2017-08-23] MEDS ORDERED: DEXA4TAB PO (11:42)
--- NOTE | 2017-08-23 11:42 | HHI.DS ---
Discharge Summary Admission Date Aug 18, 2017 at 18:43 Admitting Diagnosis Altered mental status (1) Brain mass Plan: Primary brain mass versus metastatic lesion versus meningioma Consultation to hematology/oncology with Dr. Jarrett -appreciate recommendations -Tumor markers: CA 125 elevated at 40 -MRI of the brain shows hemorrhagic enhancing mass identified within the left frontal lobe with minimal adjacent tumefactive edema. Findings suggestive of primary brain neoplasm. -CT chest shows 1.6 mm nodule of the left apex with upper lobe emphysema. Noncalcified opacity in the lateral right breast measuring 4.1 x 2.2 cm -CT abdomen pelvis shows both adrenal glands with large bilateral masses measuring up to 6 cm, suspicious for malignancy. -CT guided biopsy of adrenal glands postponed due to cilostazol, will hold cilostazol for procedure tomorrow Decadron IV 10 mg 1 -Continue Decadron 4 mg IV every 8 hours, transition to PO on discharge -Lovenox held as brain mass appears hemorrhagic Neurology consult placed as patient is known to Dr. Lancaster -EEG- abnormal study consistent with a mild-moderate encephalopathy Neurosurgery consulted -will wait for further input from oncology regarding biopsy of lesions noted on CT chest abdomen and pelvis versus proceeding with excisional biopsy of left frontal lesion. The left frontal lesion is directly cortical and then be resected through a relatively small craniotomy with stereotactic guidance if needed. She appears quite frail significant speech memory and cognitive deficits which may increase the risk of anesthesia or surgical intervention. ICD Codes: G93.9 - Disorder of brain, unspecified Status: Acute (2) Adrenal mass Plan: -CT abdomen and pelvis as above -CT guided adrenal biopsy performed on 08/22. Pathology pending. ICD Codes: E27.9 - Disorder of adrenal gland, unspecified Status: Acute (3) Breast mass, right Plan: -CT chest as above -Exam within normal limits -Obtained mammogram results from Dr. Cordova's office, patient's last mammogram was January 2017, negative ICD Codes: N63.10 - Unspecified lump in the right breast, unspecified quadrant Status: Acute (4) Altered mental status Plan: Patient presenting with altered mental status likely secondary to brain mass and edema Mental status improving, patient more alert, awake, and oriented Previous workup: -Electrolytes relatively benign -UDS: Positive opiates, otherwise negative -Alcohol less than 3 -Ammonia less than 10 -TSH 3.04 -Troponin less than 0.02, repeat x1 -Vitamin B12 1950 -Lactic acid 1.0 ICD Codes: R41.82 - Altered mental status, unspecified Status: Acute (5) Urinary tract infection Plan: UA with ketones and bacteriuria UC with lactobacillus Tenderness to palpation in suprapubic region Started on Levaquin 08/19/17 Started fluconazole 08/20/17 ICD Codes: N39.0 - Urinary tract infection, site not specified Status: Acute (6) Anxiety with depression Plan: -Continue home citalopram -Continue home clonazepam ICD Codes: F41.8 - Other specified anxiety disorders Status: Chronic (7) PVD (peripheral vascular disease) Plan: -Resume cilostazol ICD Codes: I73.9 - Peripheral vascular disease, unspecified Status: Chronic (8) Hyperlipidemia Plan: -Continue home lovastatin -Continue home aspirin ICD Codes: E78.5 - Hyperlipidemia, unspecified Status: Chronic (9) COPD (chronic obstructive pulmonary disease) Plan: -Continue home Spiriva -Continue home Ventolin -Continue home fometerol -Continue home Tessalon Perles ICD Codes: J44.9 - Chronic obstructive pulmonary disease, unspecified Status: Chronic (10) Nutrition, metabolism, and development symptoms Plan: -Fluids: DC IV fluids -Diet: mechanical soft diet with thin liquids -Electrolytes: Monitor and replete as needed ICD Codes: R63.8 - Other symptoms and signs concerning food and fluid intake Status: Acute (11) No contraindication to deep vein thrombosis (DVT) prophylaxis Plan: -Held Lovenox 40 mg daily due to procedure -SCDs ICD Codes: Z78.9 - Other specified health status Status: Acute Brief History Patient was seen during morning rounds with the family program specialist team today. She remains significantly confused and altered and is unable to provide any history or updates. is at the bedside he is able to provide some more history. He states that she has been complaining of a headache for the last 2-4 weeks that was unresponsive to Tylenol, although while her behavior is becoming more erratic and she has become more altered. She also began having significant difficulty with speaking, having slurred words and difficulty with word finding. She also has had a 32 pound weight loss over the last year which was attributed to diet and eating right. He states that this morning she seems to be more confused and she is unable to verbalize how she feels. CBC/BMP: 2/15/18 0628 08/23/17 0628 Significant Findings Laboratory Tests Test 08/21/17 06:55 08/22/17 08:53 08/23/17 06:28 White Blood Count 11.3 TH/MM3 (4.0-11.0) 11.7 TH/MM3 (4.0-11.0) Blood Urea Nitrogen 24 MG/DL (7-18) 22 MG/DL (7-18) Random Glucose 119 MG/DL (74-106) 122 MG/DL (74-106) 139 MG/DL (74-106) Estimat Glomerular Filtration Rate 68 ML/MIN (>89) 74 ML/MIN (>89) 75 ML/MIN (>89) Red Blood Count 3.82 MIL/MM3 (4.00-5.30) 3.74 MIL/MM3 (4.00-5.30) Hemoglobin 11.3 GM/DL (11.6-15.3) 11.0 GM/DL (11.6-15.3) Hematocrit 34.1 % (35.0-46.0) 33.1 % (35.0-46.0) Chloride Level 108 MEQ/L (98-107) PE at Discharge GENERAL: Elderly female lying in bed in NAD. currently at the bedside. HEENT: AT, NC with EOMI. No rhinorrhea. MMM. No visible LAD or JVD appreciated. RESPIRATORY: CTAB with no CRW. No increased WOB. CARDIOVASCULAR: RRR, no m/r/g. Radial and DP pulses 2+ and symmetric bilaterally. Brisk capillary refill. ABDOMEN: Soft, nontender, nondistended with +BS. No hepatosplenomegaly. EXTREMITIES: No remarkable dependent edema or varicosities. No cyanosis or erythema. MUSCULOSKELETAL: No calf tenderness. SKIN: Essentially clear with no significant rash or lesions. Adequate skin turgor. NEUROLOGICAL: Speech-able to talk in full sentences, answers questions appropriately,follow directions Cranial nerves- 2 through 12 grossly intact. Patient moving all 4 extremities spontaneously, sensation intact Discharge Instructions Speech Therapy-Diet Recommends: Mechanical Shasta Akbar MD R1 Aug 23, 2017 11:42
--- NOTE | 2017-08-23 11:43 | HHI.DCPOC ---
Discharge Care Plan Diagnosis: (1) Adrenal mass (2) Brain mass Goals to Promote Your Health * To prevent worsening of your condition and complications * To maintain your health at the optimal level Directions to Meet Your Goals Take your medications as prescribed Follow your dietary instruction Follow activity as directed Keep your appointments as scheduled Take your immunizations and boosters as scheduled If your symptoms worsen call your PCP, if no PCP go to Urgent Care Center or Emergency Room Smoking is Dangerous to Your Health. Avoid second hand smoke Call the 24-hour hour crisis hotline for domestic abuse at Shasta Allen MD R1 Aug 23, 2017 11:43
--- NOTE | 2017-08-23 11:46 | HHI.FF ---
Face to Face Verification Diagnosis: (1) Altered mental status (2) Brain mass (3) Urinary tract infection Physical Therapy Order: Evaluate and Treat, Improve ambulation Home Health Nursing Order: Medical education Signs/symptoms of disease process Medication education-adverse effect Nursing assessment with vital signs Home Health Aide Order: To Assist In: Bathing and personal care, tapper bit and meal prep Event Promoter Order: To Evaluate: Living conditions/environment, Support services I have seen patient Terra Neves on 08/23/17. My clinical findings support the need for the requested home health care services because: Ltd mobility - disease progression Limited ability to care for self High risk of falls I certify that my clinical findings support that this patient is homebound because: Impaired cognitive ability/safety Unsteady gait/balance Shasta Allen MD R1 Aug 23, 2017 11:46
--- NOTE | 2017-08-23 12:12 | PD.ONC.PN ---
Subjective Subjective Remarks Afebrile overnight. Patient resting in chair next to bed. at bedside. Patient much more alert and oriented today. she states she wants to go home. she tells me she doesn't like the oxygen in her nose. Objective Data Date Time Temp Pulse Resp B/P (MAP) Pulse Ox O2 Delivery O2 Flow Rate FiO2 08/23/17 08:00 97.5 95 18 154/82 (106) 98 08/23/17 05:02 150/67 (94) 08/23/17 04:57 175/77 (109) 08/23/17 04:03 97.8 97 18 174/84 (114) 97 08/23/17 03:19 90 08/23/17 03:19 92 08/23/17 02:30 191/84 (119) 184/72 (109) 08/23/17 01:36 97.8 101 18 181/88 (119) 98 08/22/17 20:18 97.8 90 18 191/84 (119) 95 08/22/17 20:00 97.8 95 18 200/81 (120) 96 08/22/17 16:00 97.7 100 16 167/74 (105) 92 08/22/17 12:35 83 20 117/65 (82) 98 Result Diagram: 08/23/1762708/23/17627 Laboratory Results Laboratory Tests Test 08/23/17 06:28 White Blood Count 10.1 TH/MM3 Red Blood Count 3.74 MIL/MM3 Hemoglobin 11.0 GM/DL Hematocrit 33.1 % Mean Corpuscular Volume 88.5 FL Mean Corpuscular Hemoglobin 29.5 PG Mean Corpuscular Hemoglobin Concent 33.4 % Red Cell Distribution Width 14.3 % Platelet Count 318 TH/MM3 Mean Platelet Volume 8.1 FL Hematology Comments Blood Urea Nitrogen 18 MG/DL Creatinine 0.76 MG/DL Random Glucose 139 MG/DL Calcium Level 8.6 MG/DL Sodium Level 140 MEQ/L Potassium Level 4.3 MEQ/L Chloride Level 107 MEQ/L Carbon Dioxide Level 27.3 MEQ/L Anion Gap 6 MEQ/L Estimat Glomerular Filtration Rate 75 ML/MIN Culture Results Microbiology Date/Time Source Procedure Growth Status 08/20/17 20:05 Blood Peripheral Aerobic Blood Culture - Preliminary NO GROWTH IN 3 DAYS Resulted 08/20/17 20:05 Blood Peripheral Anaerobic Blood Culture - Preliminary NO GROWTH IN 3 DAYS Resulted 08/20/17 19:50 Blood Peripheral Aerobic Blood Culture - Preliminary NO GROWTH IN 3 DAYS Resulted 08/20/17 19:50 Blood Peripheral Anaerobic Blood Culture - Preliminary NO GROWTH IN 3 DAYS Resulted Administered Medications Medications (Trade) Dose Ordered Sig/Chichi Route PRN Reason Start Time Stop Time Status Last Admin Dose Admin Sodium Chloride (NS Flush) 2 ml BID IV FLUSH 08/18/17 21:00 08/22/17 09:00 Enoxaparin Sodium (Lovenox Inj) 40 mg Q24H SQ 08/19/17 09:00 Future Hold 08/19/17 09:00 Aspirin (Ecotrin Ec) 81 mg DAILY PO 08/19/17 09:00 Future hold 08/23/17 08:10 Cholecalciferol (Vitamin D3) 1,000 units BID PO 08/19/17 09:00 Future hold 08/23/17 08:10 Cilostazol (Pletal) 100 mg BID PO 08/19/17 09:00 Future Hold 08/20/17 23:40 Escitalopram Oxalate (Lexapro) 5 mg DAILY PO 08/19/17 09:00 Future hold 08/23/17 08:10 Pravastatin Sodium (Pravachol) 40 mg DAILY PO 08/19/17 09:00 Future hold 08/23/17 08:10 Tiotropium [place] (Spiriva Inh) 18 mcg DAILY INH 08/19/17 09:00 08/22/17 09:00 Calcium Carbonate (Oscal) 500 mg BID PO 08/19/17 09:00 Future hold 08/23/17 08:09 Dextrose (D50w (Vial) Inj) 50 ml UNSCH PRN IV PUSH HYPOGLYCEMIA-SEE COMMENTS 08/19/17 03:00 08/19/17 03:16 Senna/Docusate Sodium (Belen-Colace) 1 tab BID PO 08/19/17 09:00 Future hold 08/22/17 20:12 Sodium Chloride 1,000 ml @ 100 mls/hr Q10H IV 08/19/17 09:00 08/22/17 17:00 Levofloxacin/ Dextrose 150 ml @ 100 mls/hr Q24H IV 08/19/17 11:00 08/23/17 09:48 Pantoprazole Sodium (Protonix Inj) 40 mg Q24H IV PUSH 08/19/17 10:15 08/23/17 09:47 Lorazepam (Ativan Inj) 0.5 mg Q4H PRN IV PUSH AGITATION AND/OR HALLUCINATION 08/19/17 13:15 08/21/17 00:23 Enalaprilat (Vasotec Inj) 1.25 mg Q6H PRN IV PUSH SEE LABEL COMMENTS 08/20/17 01:15 08/23/17 02:29 Labetalol HCl (Trandate Inj) 10 mg Q6H PRN IV PUSH SEE LABEL COMMENTS 08/20/17 03:00 08/20/17 03:25 Fluconazole/ Sodium Chloride 100 ml @ 100 mls/hr Q24H IV 08/20/17 17:00 08/22/17 19:01 Dexamethasone Sodium Phosphate (Decadron Inj) 4 mg Q8HR IV PUSH 08/22/17 16:00 08/23/17 06:28 Objective Remarks GENERAL: Elderly female upright in chair next to bed SKIN: Warm and dry. HEAD: Normocephalic. EYES: No injection or drainage. NECK: Supple, trachea midline. CARDIOVASCULAR: Regular rate and rhythm RESPIRATORY: Breath sounds equal bilaterally. No accessory muscle use. GASTROINTESTINAL: Abdomen soft, non-tender, nondistended. EXTREMITIES: No cyanosis NEUROLOGICAL: awake, alert. normal speech Assessment/Plan Problem List: (1) Brain mass ICD Codes: G93.9 - Disorder of brain, unspecified Status: Acute Plan: s/p adrenal gland biopsy, pathology pending. --started slurring her speech and had expressive aphasia about a week ago. + shuffling unsteady gait. --headache X 1 month not relieved with Tylenol. --CT head showed a solitary 1.3 cm mass in the left parietal region with increased edema. --CT ab/pelvis showed bilateral adrenal masses. --NS following. (2) Adrenal mass ICD Codes: E27.9 - Disorder of adrenal gland, unspecified Status: Acute Plan: Bilateral adrenal masses. s/p biopsy Assessment 72y/o female admitted with AMS, found to have mass, left parietal lobe and bilateral adrenal masses. h/o Chronic obstructive pulmonary disease. Fibromyalgia. Lupus. Coronary artery disease. Hyperlipidemia. Gastroesophageal reflux disease (GERD) . Hypertension. Remote history of hepatitis A and B. Herniated disc with chronic back pain. Osteoarthritis. Cataracts. Peripheral vascular disease. Plan 1. clear for discharge. 2. follow up in clinic in 1-2 weeks. Attending Statement The exam, history, and the medical decision-making described in the above note were completed with the assistance of the mid-level provider. I reviewed and agree with the findings presented. I attest that I had a [id number] encounter with the patient on the same day, and personally performed and documented my assessment and findings in the medical record. More alert today. Denies headache or pain. Wanted to go home. s/p biopsy adrenal mass, path pending. If d/c, f/u oncology clinic. Miriam Lewis Aug 23, 2017 12:12 Manjeet Jarrett MD Aug 23, 2017 12:49
== END 2017-08-23 14:08 | disposition home health service (06) | DRG 70 ==
LOC: NEPC 15:51 → NEDA 18:43 → N05B 20:23
PROVIDERS: ADMIT Family Medicine; ATTEND Family Medicine
PROC: 0GB33ZX Excision of Right Adrenal Gland, Percutaneous Approach, Diagnostic (ICD-10-PCS; principal; 2017-08-22)
DX: G93.89 Other specified disorders of brain (principal); G93.6 Cerebral edema; N17.9 Acute kidney failure, unspecified; R47.01 Aphasia; N39.0 Urinary tract infection, site not specified; R41.82 Altered mental status, unspecified; I25.10 Atherosclerotic heart disease of native coronary artery without angina pectoris; I73.9 Peripheral vascular disease, unspecified; M79.7 Fibromyalgia; E78.5 Hyperlipidemia, unspecified; J43.9 Emphysema, unspecified; I10 Essential (primary) hypertension; E86.0 Dehydration; F41.8 Other specified anxiety disorders; M19.90 Unspecified osteoarthritis, unspecified site; R26.81 Unsteadiness on feet; E27.8 Other specified disorders of adrenal gland; R91.1 Solitary pulmonary nodule; G89.29 Other chronic pain; Z87.891 Personal history of nicotine dependence
CPT/HCPCS: 60699; 70450; 70553; 71045; 71260; 73502; 74177; 77012; 80048; 80053; 80307; 81001; 82105; 82140; 82378; 82607; 82947; 82948; 83605; 84425; 84443; 84484; 85025; 85027; 85610; 85730; 86300; 86301; 86304; 87040; 87086; 87186; 87205; 88305; 88341; 88342; 93005; 94150; 94664; 95819; 96360; 99152; 99153; A9579; C9113; J1100; J1450; J1644; J1650; J1956; J2060; J2250; J3010; J7030; P9612; Q9963; Q9967

== ENCOUNTER 2017-08-30 13:26 | Emergency (ER) | payer MEDICARE, BC ==
[~2017-08-30] VITALS: Ht 162.6 cm; Wt 70.0 kg
[~2017-08-30 13:26] MED LIST changes: +DEXA4TAB PO
[2017-08-30 13:30] VITALS: BP 98/53; PULSE 98; RESP 18; TEMP 98.2; O2SAT 95
[2017-08-30 15:10] LABS: BASOPHIL % 0.1 % (0.0-2.0); EOSINOPHIL % 0.1 % (0.0-4.0); HEMOGLOBIN 13.2 GM/DL (11.6-15.3); LYMPH % 6.3 % (9.0-44.0); LYMPHOCYTE # 1.7 TH/MM3 (1.0-4.8); MEAN CELL VOLUME 89.7 FL (80.0-100.0); MEAN CORPUSCULAR HEMOGLOBIN 29.7 PG (27.0-34.0); MEAN CORPUSCULAR HGB CONC 33.1 % (32.0-36.0); MEAN PLATELET VOLUME 7.7 FL (7.0-11.0); MONO % 8.9 % (0.0-8.0); MONOCYTE # 2.4 TH/MM3 (0-0.9); NEUT % 84.6 % (16.0-70.0); PLATELET COUNT 312 TH/MM3 (150-450); RED BLOOD COUNT 4.46 MIL/MM3 (4.00-5.30); RED CELL DISTRIBUTION WIDTH 14.7 % (11.6-17.2); WHITE BLOOD COUNT 27.2 TH/MM3 (4.0-11.0)
[2017-08-30 15:11] LABS: BLOOD, URINE TRACE (NEG); GLUCOSE,URINE NEG (NEG); HYALINE CAST, URINE 18 /lpf (RARE); KETONE, URINE NEG (NEG); MUCUS URINE MANY /lpf (OCC); NITRITE,URINE NEG (NEG); PH, URINE 5.5 (5.0-8.5); SQUAMOUS EPITHELIAL CELL URINE 5 /hpf (0-5); URINE COLOR YELLOW (YELLW/STRAW); URINE LEUKOCYTE ESTERASE LARGE (NEG)
[2017-08-30 15:12] LABS: BILIRUBIN, URINE NEG (NEG)
[2017-08-30 15:35] LABS: ALKALINE PHOSPHATASE 74 U/L (45-117); TOTAL PROTEIN 6.9 GM/DL (6.4-8.2)
[2017-08-30 15:41] LABS: BANDS 3 % (0-6); LYMPHOCYTES 5 % (9-44); MONOCYTES 11 % (0-8); NEUTROPHIL # MANUAL DIFF 22.6 TH/MM3 (1.8-7.7); POLYS (SEG NEUTROPHILS) 80 % (16-70)
[2017-08-30 15:45] LABS: ALBUMIN 3.1 GM/DL (3.4-5.0); ALT (GPT) 29 U/L (10-53); AST (GOT) 28 U/L (15-37); BICARBONATE 29.7 MEQ/L (21.0-32.0); BLOOD UREA NITROGEN 22 MG/DL (7-18); CALCIUM 9.3 MG/DL (8.5-10.1); CHLORIDE 97 MEQ/L (98-107); CREATININE 1.11 MG/DL (0.50-1.00); GLOMERULAR FILTRATION RATE 49 ML/MIN (>89); GLUCOSE,RANDOM 116 MG/DL (74-106); SODIUM (NA) 134 MEQ/L (136-145)
[2017-08-30 16:47] VITALS: BP 103/53; PULSE 87; RESP 19; O2SAT 96
[2017-08-30] MEDS ORDERED: SODIUM CHLOR 0.9% 1000 ML INJ 1,000 ML IV ONE (17:00)
--- NOTE | 2017-08-30 17:04 | PD ---
HPI Chief Complaint: Abnormal Results Time Seen by Provider: 16:41 Travel History International Travel<30 days: No Contact w/Intl Traveler<30days: No Traveled to known affect area: No History of Present Illness HPI The patient was seen and examined in the presence of the nurse. This patient was told to come to the ER by a home health nurse who checked her blood pressure at home and told her it was low. She tracks her blood pressure frequently and says it usually runs around 110 systolic. She is not sure what the pressure was earlier today. She denies syncope. She is not having chest pain or shortness of breath or abdominal pain. 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 It was not entirely clear upon discharge with the primary was. She was supposed to follow-up with oncology but has not done so. She does not know who to call her where to go. She reports her confusion has cleared away and in general she is doing better but is here for the low blood pressure. Current blood pressure is 103 systolic she is afebrile with no tachycardia. Symptom severity is mild. No alleviating factors. No exacerbating factors. Duration one day PFSH Past Medical History Arthritis: Yes Asthma: No Autoimmune Disease: Yes (LUPUS) Blood Disorders: No Heart Rhythm Problems: No Cancer: No Cardiovascular Problems: Yes (CAD) High Cholesterol: Yes Chest Pain: No Congestive Heart Failure: No COPD: Yes Cerebrovascular Accident: No Coronary Artery Disease: Yes Diabetes: No Diminished Hearing: No Diverticulitis: Yes Endocrine: No GERD: Yes Glaucoma: No Genitourinary: No Hepatitis: Yes (HEP. A) Hiatal Hernia: Yes Herniated Disk: Yes Hypertension: Yes Immune Disorder: Yes Kidney Stones: No Musculoskeletal: Yes Neurologic: No Psychiatric: No Reproductive: No Respiratory: Yes Renal Failure: No Sickle Cell Disease: No Sleep Apnea: No Thyroid Disease: No Ulcer: No Influenza Vaccination: Yes ?: Not Menopausal: Yes : 2 Para: 2 Past Surgical History Abdominal Surgery: Yes (COLON RESESCT. (DIVERTIC), HERNIA REP. gallbladder removed) Cardiac Surgery: No Cholecystectomy: Yes Ear Surgery: No Endocrine Surgery: No Eye Surgery: No Genitourinary Surgery: No Gynecologic Surgery: No Insulin Pump: No Oral Surgery: Yes (teeth pulled and top dentures) Pacemaker: No Thoracic Surgery: No Other Surgery: Yes (biopsy from adrenal glands) Social History Alcohol Use: No Tobacco Use: No Substance Use: No Allergies-Medications (Allergen,Severity, Reaction): Coded Allergies: adhesive (Unverified Allergy, Intermediate, Itching, 08/30/17) cephalexin (Unverified Allergy, Mild, 08/30/17) Reported Meds & Prescriptions Reported Meds & Active Scripts Active Dexamethasone 4 Mg Tab 4 Mg PO BID Reported Probiotic (Saccharomyces Boulardii) Unknown Strength Cap 1 Cap PO DAILY Vitamin D-1000 (Cholecalciferol) 1,000 Unit Tab 1,000 Units PO BID Calcium 600 (Calcium Carbonate) 600 Mg Calcium (1500 Mg) Tab 600 Mg PO BID Biotin 5,000 Mcg Tab.rapdis 5,000 Mcg PO DAILY Aspirin Adult Low Strength (Aspirin) 81 Mg Tabdr 81 Mg PO DAILY Ventolin Hfa 18 GM Inh (Albuterol Sulfate) 90 Mcg/Act Aer 1 Puff INH Q4H PRN Spiriva [place] (Tiotropium Inh) 18 Mcg Cap 18 Mcg INH DAILY 1 capsule = 18 mcg Pantoprazole (Pantoprazole Sodium) 40 Mg Tab 40 Mg PO DAILY Lovastatin 40 Mg Tab 40 Mg PO DAILY Trade (Hydrocodone-Acetaminophen) 5 Mg-325 Mg Tab 1 Tab PO Q8HR PRN Formoterol Fumarate Dihydrate 100 % Pow 12 Mcg INH Q12H Lexapro (Escitalopram Oxalate) 5 Mg Tab 5 Mg PO DAILY Klonopin (Clonazepam) 0.5 Mg Tab 0.5 Mg PO TID PRN Cilostazol 100 Mg Tab 100 Mg PO BID Tessalon Perles (Benzonatate) 100 Mg Cap 100 Mg PO TID PRN Review of Systems General / Constitutional: No: Fever Eyes: No: Visual changes HENT: No: Headaches Cardiovascular: No: Chest Pain or Discomfort Respiratory: No: Shortness of Breath Gastrointestinal: No: Abdominal Pain Genitourinary: No: Dysuria Musculoskeletal: Positive: Weakness, No: Pain Skin: No Rash Neurologic: Positive: Weakness Psychiatric: No: Depression Endocrine: No: Polydipsia Hematologic/Lymphatic: No: Easy Bruising Physical Exam Narrative GENERAL: Well-nourished, well-developed patient in no apparent distress. SKIN: Focused skin assessment reveals no rash and nodules. Skin is Warm and dry. HEAD: Atraumatic. Normocephalic. EYES: Pupils equal and round. No scleral icterus. No injection or drainage. ENT: No nasal bleeding or discharge. Mucous membranes pink and moist. NECK: Trachea midline. No JVD. CARDIOVASCULAR: Regular rate and rhythm. No murmur appreciated. RESPIRATORY: No accessory muscle use. Clear to auscultation. Breath sounds equal bilaterally. GASTROINTESTINAL: Abdomen soft, non-tender, nondistended. Hepatic and splenic margins not palpable. MUSCULOSKELETAL: No obvious deformities. No clubbing. No cyanosis. No edema. NEUROLOGICAL: Awake and alert. No obvious cranial nerve deficits. Motor grossly within normal limits. Normal speech. PSYCHIATRIC: Appropriate mood and affect; insight and judgment normal. Data Data Last Documented VS Vital Signs Date Time Temp Pulse Resp B/P (MAP) Pulse Ox O2 Delivery O2 Flow Rate FiO2 08/30/17 16:47 87 19 103/53 (70) 96 Room Air 08/30/17 13:30 98.2 Orders Orders Complete Blood Count With Diff (08/30/17 13:54) Comprehensive Metabolic Panel (08/30/17 13:54) Urinalysis - C+S If Indicated (08/30/17 13:54) Electrocardiogram (08/30/17 ) Urine Culture (08/30/17 14:35) Sodium Chlor 0.9% 1000 Ml Inj (Ns 1000 M (08/30/17 17:00) Chest, Single Ap (08/30/17 ) Labs Laboratory Tests Test 08/30/17 14:35 08/30/17 14:40 Urine Color YELLOW Urine Turbidity HAZY Urine pH 5.5 Urine Specific [place] 1.026 Urine Protein 30 mg/dL Urine Glucose (UA) NEG mg/dL Urine Ketones NEG mg/dL Urine Occult Blood TRACE Urine Nitrite NEG Urine Bilirubin NEG Urine Urobilinogen 4.0 MG/DL Urine Leukocyte Esterase LARGE Urine RBC 5 /hpf Urine WBC 16 /hpf Urine Squamous Epithelial Cells 5 /hpf Urine Hyaline Casts 18 /lpf Urine Mucus MANY /lpf Microscopic Urinalysis Comment CULTURE INDICATED White Blood Count 27.2 TH/MM3 Red Blood Count 4.46 MIL/MM3 Hemoglobin 13.2 GM/DL Hematocrit 40.0 % Mean Corpuscular Volume 89.7 FL Mean Corpuscular Hemoglobin 29.7 PG Mean Corpuscular Hemoglobin Concent 33.1 % Red Cell Distribution Width 14.7 % Platelet Count 312 TH/MM3 Mean Platelet Volume 7.7 FL Neutrophils (%) (Auto) 84.6 % Lymphocytes (%) (Auto) 6.3 % Monocytes (%) (Auto) 8.9 % Eosinophils (%) (Auto) 0.1 % Basophils (%) (Auto) 0.1 % Neutrophils # (Auto) 23.0 TH/MM3 Lymphocytes # (Auto) 1.7 TH/MM3 Monocytes # (Auto) 2.4 TH/MM3 Eosinophils # (Auto) 0.0 TH/MM3 Basophils # (Auto) 0.0 TH/MM3 CBC Comment AUTO DIFF Differential Total Cells Counted 100 Neutrophils % (Manual) 80 % Band Neutrophils % 3 % Lymphocytes % 5 % Monocytes % 11 % Eosinophils % 1 % Neutrophils # (Manual) 22.6 TH/MM3 Differential Comment FINAL DIFF MANUAL Platelet Estimate NORMAL Platelet Morphology Comment NORMAL Blood Urea Nitrogen 22 MG/DL Creatinine 1.11 MG/DL Random Glucose 116 MG/DL Total Protein 6.9 GM/DL Albumin 3.1 GM/DL Calcium Level 9.3 MG/DL Alkaline Phosphatase 74 U/L Aspartate Amino Transf (AST/SGOT) 28 U/L Alanine Aminotransferase (ALT/SGPT) 29 U/L Total Bilirubin 1.0 MG/DL Sodium Level 134 MEQ/L Potassium Level 4.2 MEQ/L Chloride Level 97 MEQ/L Carbon Dioxide Level 29.7 MEQ/L Anion Gap 7 MEQ/L Estimat Glomerular Filtration Rate 49 ML/MIN MDM Medical Decision Making Medical Screen Exam Complete: Yes Emergency Medical Condition: Yes Medical Record Reviewed: Yes Differential Diagnosis Dehydration, pneumonia, cardiac arrhythmia Narrative Course I have reviewed the patient's electronic medical record. Reviewed his admission history and physical and discharge summary from recent hospital stay, discharge was 1 week ago IV placed and given 1 L normal saline IV bolus and will reassess blood pressure afterwards CBC shows leukocytosis of 27,000 Urinalysis shows a few white cells but not an overwhelming amount also positive leukocyte esterase I reviewed her chest x-ray which is normal Metabolic profile reasonably normal I placed a call to Dr. Jarrett to discuss I reviewed the case in detail with Dr. Jarrett's partner who is Dr. Villarreal He notes that the patient is on steroids which would likely explain her leukocytosis given the fact she has no fever or urine infection or pneumonia or skin infection or tachycardia etc. Mental status is clear. I gave her some IV fluid. Her blood pressure is 115 systolic which is her baseline. 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 Jarrett Med/Other Pt SpecificInfo: Other Disposition: 01 DISCHARGE HOME Condition: Stable Eduardo Reynoso MD Aug 30, 2017 17:03
--- NOTE | 2017-08-30 17:14 | RADRPT ---
EXAM DATE/TIME: 08/30/2017 16:59 [facility] COMPARISON: CHEST SINGLE AP, August 18, 2017, 16:31. INDICATIONS : Fever. MEDICAL HISTORY : Chronic obstructive pulmonary disease. Peripheral artery disease. Fibromyalgia. SURGICAL HISTORY : Cholecystectomy. ENCOUNTER: Initial ACUITY: 1 day PAIN SCORE: 0/10 LOCATION: Bilateral chest FINDINGS: A single view of the chest demonstrates the lungs to be symmetrically aerated without evidence of mas s, infiltrate or effusion. The cardiomediastinal contours are unremarkable. Stable prominent perica rdial fat pad. Osseous structures are intact. CONCLUSION: The lungs are clear. Wilfrid Jensen MD on August 30, 2017 at 17:12 Board Certified Radiologist. This report was verified electronically.
--- NOTE | 2017-08-31 13:46 | EKG ---
Date Performed: 08/30/2017 Time Performed: 14:32:10 PTAGE: 72 years EKG: Probable Sinus rhythm with premature atrial contractions LOW QRS VOLTAGE IN PRECORDIAL LEADS ABNORMAL RHYTHM ECG PREVIOUS TRACING : 08/18/2017 16.02 Since the prior tracing, there has been no significant seri al change. DOCTOR: Giuliana Méndez Interpretating Date/Time 08/31/2017 13:45:43
== END 2017-08-30 19:22 | disposition home or self-care (01) ==
LOC: NEPC 13:26
DX: C50.919 Malignant neoplasm of unspecified site of unspecified female breast (principal); C79.31 Secondary malignant neoplasm of brain; E78.00 Pure hypercholesterolemia, unspecified; K21.9 Gastro-esophageal reflux disease without esophagitis
CPT/HCPCS: 71045; 80053; 81001; 85007; 85027; 87086; 93005; 99285; J7030